=== PATIENT | male | born 1980 | race Caucasian/White ===

== ENCOUNTER 2016-12-01 11:56 | Emergency (ER) | payer MEDICARE, MEDICAID ==
--- NOTE | 2016-12-01 13:31 | RAD ---
HISTORY: Trauma, left foot injury COMPARISONS: None VIEWS: 3, Frontal, lateral, and oblique views of the left foot FINDINGS: BONE DENSITY: Normal. BONES: There is no displaced fracture. JOINTS: There is no arthropathy. ALIGNMENT: There is no dislocation. SOFT TISSUES: Unremarkable. OTHER FINDINGS: None. IMPRESSION: NO ACUTE OSSEOUS INJURY. IF SYMPTOMS PERSIST, RECOMMEND REPEAT IMAGING.
--- NOTE | 2016-12-01 13:36 | RAD ---
Indication: Left ankle injury. 3 views of left ankle demonstrates spiral fracture distal fibula with soft tissue swelling. Ankle mortise is intact. IMPRESSION: Spiral fracture distal fibula. Soft tissue swelling is noted.
[2016-12-01 14:27] VITALS: BP 145/99
[2016-12-01] MEDS ORDERED: Ibuprofen TAB* 600 MG PO ONE (14:46)
[2016-12-01] MEDS ORDERED: HYDROcodone/ACETAMIN 5-325 MG* 1 TAB PO ONE (14:46)
--- NOTE | 2016-12-01 17:46 | ED ---
Lower Extremity - HPI Summary HPI Summary: Pt here w/ Lt ankle injury last night. Has MS and was walking to the bathroom when he mis stepped and injured Lt ankle. Swelling, pain. Has been icing and elevating but still swollen and now bruising. Pt reports change in sensation is difficult to report d/t baseline neuropathies from MS. Denies taking anything for MS. Lives w/ family and has a health aid come in to care for him - health aid brought him in today. No other issues from injury to report (ie. head injury , other limbs, etc) NOTE: pt has a baseline Rt LE "Drop foot", making the LLE his "good leg". 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 Pain Intensity: 5 Pain Scale Used: 0-10 Numeric - Allergies/Home Medications Allergies/Adverse Reactions: Allergies Allergy/AdvReac Type Severity Reaction Status Date / Time Penicillins Allergy Rash Verified 12/18/15 12:52 PMH/Surg Hx/FS Hx/Imm Hx Previously Healthy: Yes Endocrine/Hematology History: Denies: Hx Anticoagulant Therapy, Hx Blood Disorders, Hx Diabetes Cardiovascular History: Denies: Hx Hypertension, Hx Pacemaker/ICD History: Denies: Hx Dialysis, Hx Renal Disease Sensory History: Denies: Hx Hearing Aid Neurological History: Reports: Other Neuro Impairments/Disorders - MS Psychiatric History: Reports: Hx [facility] [place] - [facility] Denies: Hx Panic Disorder, Hx of Violent Episodes Against Others - Surgical History Surgery Procedure, Year, and Place: 1982 - Immunization History Date of Tetanus Vaccine: unknown Date of Influenza Vaccine: none Infectious Disease History: No Infectious Disease History: Denies: Traveled Outside the [place] in Last 30 Days - Family History Known Family History: Positive: Unknown - Social History Occupation: Disabled Lives: With Family Alcohol Use: None Hx Substance Use: No Substance Use Type: Reports: None Substance Use Comment - Amount & Last Used: daily Smoking Status (MU): Current Every Day Smoker Type: Cigarettes Amount Used/How Often: 1/2 PPD Review of Systems Eyes: Negative Negative: Photophobia, Blurred Vision, Diplopia Negative: Chest Pain Negative: Shortness Of Breath Negative: Abdominal Pain, Vomiting, Nausea Positive: no symptoms reported Musculoskeletal: Other - see HPI Skin: Other - see HPI Neurological: Other - see HPI Psychological: Normal All Other Systems Reviewed And Are Negative: Yes Physical Exam Triage Information Reviewed: Yes Vital Signs On Initial Exam: Initial Vitals Temp Pulse Resp BP Pulse Ox 98.3 F 81 20 136/88 100 12/01/16 12:07 12/01/16 12:07 12/01/16 12:07 12/01/16 12:07 12/01/16 12:07 Vital Signs Reviewed: Yes Appearance: Positive: Well-Appearing, No Pain Distress, Well-Nourished Skin: Positive: Warm, Dry - pedal edema of Lt foot w/ ecchymosis around the lateral aspect and toes - no skin breakdown Eyes: Positive: Conjunctiva Clear ENT: Positive: Hearing grossly normal Cardiovascular: Positive: Pulses are Symmetrical in both Upper and Lower Extremities Musculoskeletal: Positive: Limited @ - strength nad ROM is limited in general - pt has tight tendons at baseline and he requires assistance to move him into positions outside of his "neutral" ROM, Pain @ - Lt lateral malleolus is TTP Neurological: Positive: Normal, Alert, Oriented to Person Place, Time. Negative : Sensory/Motor Intact - limited as above and d/t MS - feels gross touch Psychiatric: Positive: Other - somewhat blunted affect - Janelle Coma Scale Coma Scale Total: 15 Procedures - Splinting Location: LLE Hand-Made Type: fiberglass Splint: sugar-tong Pre-Proc Neuro Vasc Exam: normal Post-Proc Neuro Vasc Exam: normal Diagnostics - Vital Signs Vital Signs Temp Pulse Resp BP Pulse Ox 12/01/16 14:23 98.5 F 65 17 145/99 96 12/01/16 12:10 98.2 F 81 20 136/88 100 12/01/16 12:07 98.3 F 81 20 136/88 100 - Laboratory Lab Statement: Any lab studies that have been ordered have been reviewed, and results considered in the medical decision making process. Re-Evaluation - Re-Evaluation First Eval Change: Improved - s/p splint placement Lower Extremity Course/Dx - Course Course Of Treatment: Discussed importance of frequent foot checks as pt's sensation is dulled - reviwed danger s/sx of compartment syndrome and to seek medical attention immediately. Mom arrived before d/c and she is aware as well as health aid. Pt is NOT to weight bear and f/u w/ ortho this week. They do have a wheelchair at home and a urinal as well as bedpan were provided today. - Diagnoses Provider Diagnoses: Closed fracture of left distal fibula Discharge - Discharge Plan Condition: Stable Disposition: HOME Prescriptions: HYDROcodone/ACETAMIN 5-325 MG* [Unity 5-325 TAB*] 1 tab PO Q6H PRN #20 tab MDD 4 PRN Reason: Pain Ibuprofen TAB* [Motrin TAB* 600 MG] 600 mg PO Q6H PRN #20 tab PRN Reason: Pain Patient Education Materials: Ankle Fracture (ED), Splint Care (ED) Referrals: Vignesh Beard MD [Medical Doctor] - Additional Instructions: Rest, ice, elevate Keep splint clean, dry and intact Non-weight bearing - use wheelchair for transportation Follow-up with document improvement specialist - call today to schedule an appointment. *If you develop numbness, discoloration of foot/toes, you may loosen CEDRICK wrap and elevate for 20 minutes. If symptoms persist, return to ED
== END 2016-12-01 15:04 | disposition home or self-care (01) ==
LOC: ED 11:56
DX: S82.832A Other fracture of upper and lower end of left fibula, initial encounter for closed fracture (principal); W10.9XXA Fall (on) (from) unspecified stairs and steps, initial encounter; Y93.9 Activity, unspecified; Y92.9 Unspecified place or not applicable; F17.210 Nicotine dependence, cigarettes, uncomplicated
CPT/HCPCS: 99283; A9270-GY

== ENCOUNTER 2016-12-20 14:00 | Emergency (ER) | payer MEDICARE, MEDICAID ==
[2016-12-20 15:52] VITALS: BP 106/78
--- NOTE | 2016-12-20 17:44 | RAD ---
INDICATION: Right-sided rib pain COMPARISON: Chest x-ray March 27, 2015 TECHNIQUE: PA and lateral dual-energy views were obtained. FINDINGS: Bones/Soft Tissues: There are no acute bony findings. Cardiomediastinal: The cardiomediastinal silhouette is normal. Lungs: There are no infiltrates. Pleura: There are no pleural effusions. Other: None IMPRESSION: NO ACTIVE DISEASE
--- NOTE | 2016-12-20 18:28 | UC ---
UC General HPI - HPI Summary HPI Summary: AT 3AM HAD RIGHT RIB/RIGHT UPPER ABDOMINAL PAIN, LASTED FOR TWO HOURS THEN RESOLVED. NO TRAUMA, NO FEVER. CURRENTLY NO SYMPTOMS. INTERACTING NORMALLY WITH SECURITY ALARM INSTALLER. - History of Current Complaint Chief Complaint: UCUpperExtremity Stated Complaint: RIB PAIN Time Seen by Provider: 12/20/16 16:26 Hx Obtained From: Patient Onset/Duration: Sudden Onset, Lasting Hours, Resolved Onset Severity: Severe Current Severity: None Pain Intensity: 0 Associated Signs & Symptoms: Positive: Abdominal Pain. Negative: Back Pain, Confusion, Cough, Chest Pain, Dizziness, Diarrhea, Dysuria, Fever, Nausea, SOB, Trauma, Vomiting, Weakness - Allergy/Home Medications Allergies/Adverse Reactions: Allergies Allergy/AdvReac Type Severity Reaction Status Date / Time Penicillins Allergy Rash Verified 12/18/15 12:52 Home Medications: Home Medications Ibuprofen TAB* [Motrin TAB* 600 MG] 200 mg PO Q6H PRN 12/20/16 [History Confirmed 12/20/16] PMH/Surg Hx/FS Hx/Imm Hx Previously Healthy: Yes Other History Of: Negative For: Anticoagulant Therapy - Surgical History Surgical History: Yes Surgery Procedure, Year, and Place: jaw 1982 approx - Family History Known Family History: Positive: Unknown - Social History Occupation: Disabled Lives: With Family Alcohol Use: None Substance Use Type: None Substance Use Comment - Amount & Last Used: daily Smoking Status (MU): Current Every Day Smoker Type: Cigarettes Amount Used/How Often: 1/2 PPD Household Exposure Type: Cigarettes, Cigars - Immunization History Most Recent Influenza Vaccination: Unable to recall Most Recent Tetanus Shot: UNKNOWN Most Recent Pneumonia Vaccination: NA Review of Systems Constitutional: Negative Skin: Negative Eyes: Negative ENT: Negative Respiratory: Negative Cardiovascular: Negative Gastrointestinal: Abdominal Pain - RUQ; CURRENTLY RESOLVED Genitourinary: Negative Motor: Negative Neurovascular: Negative Musculoskeletal: Negative Neurological: Negative Psychological: Negative All Other Systems Reviewed And Are Negative: Yes Physical Exam Triage Information Reviewed: Yes Appearance: Well-Appearing, No Pain Distress, Well-Nourished Vital Signs: Initial Vital Signs Temp 98.7 F 12/20/16 15:46 Pulse 69 12/20/16 15:46 Resp 18 12/20/16 15:46 BP 106/78 12/20/16 15:46 Pulse Ox 98 12/20/16 15:46 Vital Signs Reviewed: Yes Eye Exam: Normal ENT Exam: Normal Dental Exam: Normal Neck exam: Normal Neck: Positive: Supple, Nontender, No Lymphadenopathy Respiratory Exam: Normal Respiratory: Positive: Chest non-tender, Lungs clear, Normal breath sounds, No respiratory distress, No accessory muscle use Cardiovascular Exam: Normal Cardiovascular: Positive: RRR, No Murmur, Pulses Normal Abdominal Exam: Normal Abdomen Description: Positive: Nontender, No Organomegaly, Soft, Other: - NONTENDER ABDOMEN Bowel Sounds: Positive: Present Musculoskeletal Exam: Normal Neurological Exam: Normal Psychological Exam: Normal Skin Exam: Normal Course/Dx - Course Course Of Treatment: CURRENTLY ASYMPTOMATIC; PATIENT AND SECURITY ALARM INSTALLER ADVISED TO SEEK IMMEDIATE CARE AT EMERGENCY DEPARTMENT IF SYMPTOMS RETURN OR IF NEW SYMPTOMS DEVELOP - Differential Dx - Multi-Symptom Differential Diagnoses: Metabolic Abnormality, Urinary Tract Infection Provider Diagnoses: ABDOMINAL PAIN RESOLVED; NORMAL EXAM WITHIN LIMITS OF PAST MEDICAL HISTORY Discharge - Discharge Plan Condition: Stable Disposition: HOME Patient Education Materials: Abdominal Pain (ED), Normal Exam (ED) Referrals: Tien Samuels MD [Primary Care Provider] - Additional Instructions: CURRENTLY SYMPTOMS HAVE RESOLVED. IF SYMPTOMS RETURN OR IF NEW SYMPTOMS DEVELOP PLEASE SEEK EVALUATION AT EMERGENCY DEPARTMENT.
== END 2016-12-20 18:13 | disposition home or self-care (01) ==
LOC: UCEAST 15:45
DX: R10.11 Right upper quadrant pain (principal); F17.210 Nicotine dependence, cigarettes, uncomplicated
CPT/HCPCS: 71020; 81003; 99212; G0463

== ENCOUNTER → 2016-12-21 12:25 | Emergency (ER) | payer MEDICARE, MEDICAID ==
[~2016-12-21 12:25] MED LIST: Iohexol 350* (CONTRAST) 500 ML MDV IV ONE
[2016-12-21 15:20] LABS: Hematocrit 41 % (42-52); Mean Corpuscular HGB Conc 34 g/dl (31-36); Mean Corpuscular Hemoglobin 29 pg (27-31); Mean Corpuscular Volume 85 fL (80-94); Mean Platelet Volume 10 um3 (7.4-10.4); Red Blood Count 4.84 10^6/ul (4.0-5.4); Red Cell Distribution Width 13 % (10.5-15); White Blood Count 10.5 10^3/ul (3.5-10.8)
[2016-12-21 15:35] LABS: Albumin 4.1 g/dL (3.2-5.2); BUN/Creatinine Ratio 14.9 (8-20); C Reactive Protein 29.15 mg/L (< 5.00); Calcium 9.6 mg/dL (8.6-10.3); EGFR African American 153.1 (>60); Globulin 3.5 g/dL (2-4); Total Bilirubin 0.6 mg/dL (0.2-1.0); Total Protein 7.6 g/dL (6.4-8.9)
[2016-12-21 15:38] LABS: Potassium 4.2 mmol/L (3.5-5.0)
--- NOTE | 2016-12-21 16:42 | RAD ---
INDICATION: Chest pain. Short of breath. Abdominal pain COMPARISON: Chest x-ray December 20, 2016; left ankle December 20, 2016 TECHNIQUE: Axial source images were obtained from the thoracic inlet to the symphysis pubis following administration of oral and intravenous contrast. 98 mL Omnipaque [address] angiographic technique of the chest coronal and sagittal reconstructed images were acquired. CHEST FINDINGS: Neck/thyroid: The visualized neck to include the thyroid appear normal. Chest wall: There are no acute abnormalities of the bony thorax or chest wall. There is no supraclavicular, infraclavicular, or axillary lymphadenopathy. Lungs : There are no pulmonary parenchymal masses or infiltrates. The pulmonary interstitium appears normal. There are no endobronchial lesions. Cardiomediastinal structures: The heart is normal in size. There is no pericardial effusion. There is no evidence of aortic aneurysm or dissection. The pulmonary vessels appear normal. There is no mediastinal or hilar adenopathy. The esophagus appears normal. Pleura : There are no pleural-based masses or effusions. ABDOMINAL/PELVIC FINDINGS: Liver: The liver is normal in size. There are no masses. There is no ductal dilatation. Gallbladder: There are no calcified gallstones. There is no evidence of wall thickening or pericholecystic fluid. Spleen: The spleen is normal in size. There are no masses. Pancreas: There is no evidence of pancreatic mass or ductal dilatation. Adrenal glands: There is no evidence of adrenal mass. Kidneys: The kidneys are normal in size and position. There are prompt nephrograms and there is prompt excretion bilaterally. There are no renal parenchymal masses. There is no evidence of nephrolithiasis. Adenopathy: There is no evidence of adenopathy by size criteria. Fluid collections: There are no free or localized fluid collections. Vessels:The aorta and IVC appear normal GI tract: There are no acute CT bowel findings. There is no obstruction. The stomach and small bowel appear normal. The lower GI tract is normal. The cecum, ileocecal valve, and terminal ileum appear normal. The appendix is visualized and appear normal. Pelvic organs: The prostate and seminal vesicles appear normal Bladder: There are no bladder masses. Abdominal and pelvic soft tissues: The extraperitoneal abdominal and pelvic soft tissues appear normal.. Osseous structures: There are no acute osseous findings. IMPRESSION: 1. No CT evidence of acute pulmonary embolic disease. 2. Moderate-sized infiltrate or atelectasis in the right lung base with volume loss. Suggest a follow-up chest x-ray. 3. No acute CT abnormalities of the abdomen or pelvis.
[2016-12-21 18:05] VITALS: BP 141/90
--- NOTE | 2016-12-21 22:38 | ED ---
Rey Adame Alfonso, scribed for Ezekiel Zapien MD on 12/21/16 at 1318 . Shortness of Breath - HPI Summary HPI Summary: This patient is a 36 year old male presenting to [facility] c/o SOB since yesterday. He reports right sided pleuritic CP at rest. He reports "I can't take a full breath" secondary to pain. Symptoms aggravated by deep breaths and alleviated by nothing. The patient states he has abdominal pain. He ate today and is not hungry. PMHx of fractured left LE (1 week ago). - History of Current Complaint Chief Complaint: EDShortnessOfBreath Time Seen by Provider: 12/21/16 13:15 Hx Obtained From: Patient Onset/Duration: Sudden Onset, Lasting Hours - Since yesterday, Still Present Timing: Constant Current Severity: Moderate Dyspnea At: Rest Aggrevating Factors: Deep Breaths Alleviating Factors: Nothing Associated Signs & Symptoms: Chest Pain Unrelated to Cough - Pleuritic CP - Allergy/Home Medications Allergies/Adverse Reactions: Allergies Allergy/AdvReac Type Severity Reaction Status Date / Time Penicillins Allergy Rash Verified 12/21/16 12:38 PMH/Surg Hx/FS Hx/Imm Hx Endocrine/Hematology History: Denies: Hx Anticoagulant Therapy, Hx Blood Disorders, Hx Diabetes Cardiovascular History: Denies: Hx Hypertension, Hx Pacemaker/ICD History: Denies: Hx Dialysis, Hx Renal Disease Sensory History: Denies: Hx Hearing Aid Neurological History: Reports: Other Neuro Impairments/Disorders - MS Psychiatric History: Reports: Hx [facility] [place] - [facility] Denies: Hx Panic Disorder, Hx of Violent Episodes Against Others - Surgical History Surgery Procedure, Year, and Place: 1982 - Immunization History Date of Tetanus Vaccine: unknown Date of Influenza Vaccine: none Infectious Disease History: No Infectious Disease History: Denies: Traveled Outside the [place] in Last 30 Days - Family History Known Family History: Positive: Cardiac Disease, Hypertension, Diabetes, Other - Positive cancers - Social History Alcohol Use: None Hx Substance Use: No Substance Use Type: Reports: None Substance Use Comment - Amount & Last Used: daily Hx Tobacco Use: Yes Smoking Status (MU): Light Every Day Tobacco Smoker Type: Cigarettes Amount Used/How Often: 1/2 PPD Review of Systems Positive: Chest Pain - Right sided pleuritic CP Positive: Shortness Of Breath Positive: Abdominal Pain Positive: Other - fractured left LE last week All Other Systems Reviewed And Are Negative: Yes Physical Exam Triage Information Reviewed: Yes Vital Signs On Initial Exam: Initial Vitals BP Pulse Ox 121/76 99 12/21/16 12:35 12/21/16 12:35 Vital Signs Reviewed: Yes Appearance: Positive: Well-Appearing, No Pain Distress Skin: Positive: Warm, Skin Color Reflects Adequate Perfusion, Dry Head/Face: Positive: Normal Head/Face Inspection Eyes: Positive: Normal ENT: Positive: Normal ENT inspection Neck: Positive: Supple, Nontender Respiratory/Lung Sounds: Positive: Clear to Auscultation, Decreased Breath Sounds - Diminished on right side Cardiovascular: Positive: RRR Abdomen Description: Negative: Nontender - Tender RLQ and RUQ Bowel Sounds: Positive: Present Musculoskeletal: Positive: Normal Neurological: Positive: Normal, Sensory/Motor Intact, Alert, Oriented to Person Place, Time, CN Intact II-III Psychiatric: Positive: Affect/Mood Appropriate - Janelle Coma Scale Coma Scale Total: 15 Diagnostics - Vital Signs Vital Signs Temp Pulse Resp BP Pulse Ox 12/21/16 13:00 88 21 122/82 97 12/21/16 12:53 91 24 97 12/21/16 12:52 128/81 12/21/16 12:38 99.3 F 92 18 121/76 98 12/21/16 12:35 121/76 99 - Laboratory Lab Results: Lab Results 12/21/16 12/21/16 12/21/16 Range/Units 15:11 15:11 15:11 WBC 10.5 (3.5-10.8) 10^3/ul RBC 4.84 (4.0-5.4) 10^6/ul Hgb 14.0 (14.0-18.0) g/dl Hct 41 L (42-52) % MCV 85 (80-94) fL MCH 29 (27-31) pg MCHC 34 (31-36) g/dl RDW 13 (10.5-15) % Plt Count 210 (150-450) 10^3/ul MPV 10 (7.4-10.4) um3 Neut % (Auto) 70.0 (38-83) % Lymph % (Auto) 21.2 L (25-47) % [place] % (Auto) 6.0 (1-9) % Eos % (Auto) 1.9 (0-6) % Baso % (Auto) 0.9 (0-2) % Absolute Neuts (auto) 7.4 (1.5-7.7) 10^3/ul Absolute Lymphs (auto) 2.2 (1.0-4.8) 10^3/ul Absolute Monos (auto) 0.6 (0-0.8) 10^3/ul Absolute Eos (auto) 0.2 (0-0.6) 10^3/ul Absolute Basos (auto) 0.1 (0-0.2) 10^3/ul Absolute Nucleated RBC 0.01 10^3/ul Nucleated RBC % 0.1 INR (Anticoag Therapy) 1.00 (0.89-1.11) Sodium 133 (133-145) mmol/L Potassium 4.2 (3.5-5.0) mmol/L Chloride 100 L (101-111) mmol/L Carbon Dioxide 26 (22-32) mmol/L Anion Gap 7 (2-11) mmol/L BUN 11 (6-24) mg/dL Creatinine 0.74 (0.67-1.17) mg/dL Est GFR ( Amer) 153.1 (>60) Est GFR (Non-Af Amer) 119.0 (>60) BUN/Creatinine Ratio 14.9 (8-20) Glucose 102 H (70-100) mg/dL Lactic Acid (0.5-2.0) mmol/L Calcium 9.6 (8.6-10.3) mg/dL Total Bilirubin 0.60 (0.2-1.0) mg/dL AST 19 (13-39) U/L ALT 21 (7-52) U/L Alkaline Phosphatase 77 (34-104) U/L C-Reactive Protein 29.15 H (< 5.00) mg/L Total Protein 7.6 (6.4-8.9) g/dL Albumin 4.1 (3.2-5.2) g/dL Globulin 3.5 (2-4) g/dL Albumin/Globulin Ratio 1.2 (1-3) Lipase 11 (11.0-82.0) U/L // Range/Units 15:11 WBC (3.5-10.8) 10^3/ul RBC (4.0-5.4) 10^6/ul Hgb (14.0-18.0) g/dl Hct (42-52) % MCV (80-94) fL MCH (27-31) pg MCHC (31-36) g/dl RDW (10.5-15) % Plt Count (150-450) 10^3/ul MPV (7.4-10.4) um3 Neut % (Auto) (38-83) % Lymph % (Auto) (25-47) % [place] % (Auto) (1-9) % Eos % (Auto) (0-6) % Baso % (Auto) (0-2) % Absolute Neuts (auto) (1.5-7.7) 10^3/ul Absolute Lymphs (auto) (1.0-4.8) 10^3/ul Absolute Monos (auto) (0-0.8) 10^3/ul Absolute Eos (auto) (0-0.6) 10^3/ul Absolute Basos (auto) (0-0.2) 10^3/ul Absolute Nucleated RBC 10^3/ul Nucleated RBC % INR (Anticoag Therapy) (0.89-1.11) Sodium (133-145) mmol/L Potassium (3.5-5.0) mmol/L Chloride (101-111) mmol/L Carbon Dioxide (22-32) mmol/L Anion Gap (2-11) mmol/L BUN (6-24) mg/dL Creatinine (0.67-1.17) mg/dL Est GFR ( Amer) (>60) Est GFR (Non-Af Amer) (>60) BUN/Creatinine Ratio (8-20) Glucose (70-100) mg/dL Lactic Acid 0.9 (0.5-2.0) mmol/L Calcium (8.6-10.3) mg/dL Total Bilirubin (0.2-1.0) mg/dL AST (13-39) U/L ALT (7-52) U/L Alkaline Phosphatase (34-104) U/L C-Reactive Protein (< 5.00) mg/L Total Protein (6.4-8.9) g/dL Albumin (3.2-5.2) g/dL Globulin (2-4) g/dL Albumin/Globulin Ratio (1-3) Lipase (11.0-82.0) U/L Result Diagrams: 12/21/16 15:11 12/21/16 15:11 Lab Statement: Any lab studies that have been ordered have been reviewed, and results considered in the medical decision making process. - CT CTA Chest/Abd/Pelvis CT Interpretation Completed By: Radiologist - 1. No CT evidence of acute pulmonary embolic disease. 2. Moderate-sized infiltrate or atelectasis in the right lung base with volume loss. Suggest a follow-up chest x-ray. 3. No acute CT abnormalities of the abdomen or pelvis. Course/Dx - Course Course Of Treatment: Mr. Bradley presented with some SOB and pleuritic right- sided CP that started today. His exam was remarkable only for RLQ tenderness. A CTA showed nno PE and at CT was also negative. He did have significant atelectasis and has been lying around a lot because of his MS and a recent leg fracture. We gave him an incentive spirometer and recommended close F/U. - Diagnoses Provider Diagnoses: Chest pain Discharge - Discharge Plan Condition: Stable Disposition: HOME Patient Education Materials: Chest Pain (ED) Referrals: Tien Samuels MD [Primary Care Provider] - 3 Days Additional Instructions: Follow up with your primary care provider. The documentation as recorded by the Rey vang Alfonso accurately reflects the service I personally performed and the decisions made by me, Ezekiel Zapien MD.
== END | disposition home or self-care (01) ==
LOC: ED 12:25
DX: R07.9 Chest pain, unspecified (principal); R06.02 Shortness of breath; R10.9 Unspecified abdominal pain; F17.210 Nicotine dependence, cigarettes, uncomplicated
CPT/HCPCS: 36415; 71275; 74177; 80053; 83605; 83690; 85025; 85610; 86140; 93005; 99283; Q9967

== ENCOUNTER 2016-12-22 15:06 | Emergency (ER) | payer MEDICARE, MEDICAID ==
[2016-12-22 15:44] LABS: Hematocrit 40 % (42-52); Hemoglobin 13.5 g/dl (14.0-18.0); Mean Corpuscular HGB Conc 34 g/dl (31-36); Mean Corpuscular Hemoglobin 29 pg (27-31); Mean Corpuscular Volume 86 fL (80-94); Mean Platelet Volume 10 um3 (7.4-10.4); Red Blood Count 4.67 10^6/ul (4.0-5.4); Red Cell Distribution Width 13 % (10.5-15); White Blood Count 7.7 10^3/ul (3.5-10.8)
[2016-12-22 15:59] LABS: Albumin 3.8 g/dL (3.2-5.2); BUN/Creatinine Ratio 21.3 (8-20); Calcium 9.4 mg/dL (8.6-10.3); EGFR African American 150.7 (>60); EGFR Non-African American 117.2 (>60); Globulin 3.5 g/dL (2-4); Total Bilirubin 0.4 mg/dL (0.2-1.0); Total Protein 7.3 g/dL (6.4-8.9)
--- NOTE | 2016-12-22 16:08 | RAD ---
INDICATION: Shortness of breath, pneumonia. COMPARISON: Comparison is made with a prior chest x-ray study from December 20, [address] of the chest from December 21, 2016. TECHNIQUE: AP and lateral views of the chest were obtained. FINDINGS: The heart is within normal limits in size. Mediastinal and hilar contours appear within normal limits. There is a small infiltrate in the right lower lobe which appears new from the prior chest x-ray study although correlates with the CT exam. The left lung appears clear. No pleural effusion is seen. IMPRESSION: SMALL RIGHT LOWER LOBE INFILTRATE.
[2016-12-22] MEDS: NS 0.9% 1000 ML* 2,000 ML IV ONE ×2 (16:12→18:13)
[2016-12-22 16:15] LABS: C Reactive Protein 36.47 mg/L (< 5.00)
--- NOTE | 2016-12-22 18:52 | ED ---
Shortness of Breath - HPI Summary HPI Summary: Patient was seen in this ED yesterday and diagnosed with atelectasis. He was originally sent in with concerns for PE after a period of immobilization due to a left fibula fracture. This was ruled out with a CTA yesterday. He returns today because he continues to have pain with deep breaths, as he did when he originally presented, and his aid from [employer] read information about atelectasis and thought he had a collapsed lung. The patient was told to use ibuprofen for pain, which he took 600mg of once today. He denies fever, chills, N/V/D, CP, SOB, palpitations or CORTES. He does has pain with deep breaths, without cough or congestion. - History of Current Complaint Chief Complaint: EDShortnessOfBreath Time Seen by Provider: 12/22/16 18:03 Hx Obtained From: Patient, Family/Library Acquisitions Technician Onset/Duration: Gradual Onset Timing: Constant Current Severity: Mild Aggrevating Factors: Deep Breaths Alleviating Factors: Nothing Associated Signs & Symptoms: Negative - Allergy/Home Medications Allergies/Adverse Reactions: Allergies Allergy/AdvReac Type Severity Reaction Status Date / Time Penicillins Allergy Rash Verified 12/21/16 12:38 PMH/Surg Hx/FS Hx/Imm Hx Endocrine/Hematology History: Denies: Hx Anticoagulant Therapy, Hx Blood Disorders, Hx Diabetes Cardiovascular History: Denies: Hx Hypertension, Hx Pacemaker/ICD History: Denies: Hx Dialysis, Hx Renal Disease Sensory History: Denies: Hx Hearing Aid Neurological History: Reports: Other Neuro Impairments/Disorders - MS Psychiatric History: Reports: Hx Community Mental Health [place] - [facility] Denies: Hx Panic Disorder, Hx of Violent Episodes Against Others - Surgical History Surgery Procedure, Year, and Place: 1982 - Immunization History Date of Tetanus Vaccine: unknown Date of Influenza Vaccine: none Infectious Disease History: No Infectious Disease History: Denies: Traveled Outside the [place] in Last 30 Days - Family History Known Family History: Positive: Unknown, Cardiac Disease, Hypertension, Diabetes , Other - Positive cancers - Social History Occupation: Disabled Lives: Assisted Living Alcohol Use: None Hx Substance Use: No Substance Use Type: Reports: None Substance Use Comment - Amount & Last Used: daily Hx Tobacco Use: Yes Smoking Status (MU): Light Every Day Tobacco Smoker Type: Cigarettes Amount Used/How Often: 1/2 PPD Cessation Counseling: Patient Advised to Stop Review of Systems Negative: Fever, Chills Negative: Sore Throat, Ear Ache, Nasal Discharge Negative: Chest Pain Negative: Shortness Of Breath - pain with deep breaths, Cough Negative: Myalgia All Other Systems Reviewed And Are Negative: Yes Physical Exam - Summary Physical Exam Summary: Patient is drinking a smoothie resting comfortably on the exam stretcher in no acute distress. Triage Information Reviewed: Yes Vital Signs On Initial Exam: Initial Vitals Resp BP 20 135/86 12/22/16 15:30 12/22/16 15:30 Vital Signs Reviewed: Yes Appearance: Positive: Well-Appearing, No Pain Distress, Well-Nourished Skin: Positive: Warm, Skin Color Reflects Adequate Perfusion, Dry, Soft Head/Face: Positive: Normal Head/Face Inspection Eyes: Positive: EOMI, MOLLY, Conjunctiva Clear ENT: Positive: Hearing grossly normal Neck: Positive: Supple, Nontender Respiratory/Lung Sounds: Positive: Clear to Auscultation, Breath Sounds Present Cardiovascular: Positive: RRR Musculoskeletal: Negative: Edema Left, Edema Right Neurological: Positive: Sensory/Motor Intact, NV Bundle Intact Distally Psychiatric: Positive: Affect/Mood Appropriate AVPU Assessment: Alert - Weinert Coma Scale Coma Scale Total: 15 Diagnostics - Vital Signs Vital Signs Temp Pulse Resp BP Pulse Ox 12/22/16 17:30 66 17 125/91 95 12/22/16 17:00 66 17 131/83 95 12/22/16 16:30 71 17 134/91 95 12/22/16 16:00 74 19 130/82 96 12/22/16 15:55 99.6 F 75 22 135/86 95 12/22/16 15:30 20 135/86 - Laboratory Lab Results: Lab Results 12/22/16 12/22/16 12/22/16 Range/Units 15:35 15:35 15:35 WBC 7.7 (3.5-10.8) 10^3/ul RBC 4.67 (4.0-5.4) 10^6/ul Hgb 13.5 L (14.0-18.0) g/dl Hct 40 L (42-52) % MCV 86 (80-94) fL MCH 29 (27-31) pg MCHC 34 (31-36) g/dl RDW 13 (10.5-15) % Plt Count 223 (150-450) 10^3/ul MPV 10 (7.4-10.4) um3 Neut % (Auto) 69.2 (38-83) % Lymph % (Auto) 19.3 L (25-47) % [place] % (Auto) 7.2 (1-9) % Eos % (Auto) 3.0 (0-6) % Baso % (Auto) 1.3 (0-2) % Absolute Neuts (auto) 5.3 (1.5-7.7) 10^3/ul Absolute Lymphs (auto) 1.5 (1.0-4.8) 10^3/ul Absolute Monos (auto) 0.5 (0-0.8) 10^3/ul Absolute Eos (auto) 0.2 (0-0.6) 10^3/ul Absolute Basos (auto) 0.1 (0-0.2) 10^3/ul Absolute Nucleated RBC 0.01 10^3/ul Nucleated RBC % 0.1 Sodium 136 (133-145) mmol/L Potassium 4.0 (3.5-5.0) mmol/L Chloride 104 (101-111) mmol/L Carbon Dioxide 23 (22-32) mmol/L Anion Gap 9 (2-11) mmol/L BUN 16 (6-24) mg/dL Creatinine 0.75 (0.67-1.17) mg/dL Est GFR ( Amer) 150.7 (>60) Est GFR (Non-Af Amer) 117.2 (>60) BUN/Creatinine Ratio 21.3 H (8-20) Glucose 101 H (70-100) mg/dL Lactic Acid 0.6 (0.5-2.0) mmol/L Calcium 9.4 (8.6-10.3) mg/dL Total Bilirubin 0.40 (0.2-1.0) mg/dL AST 18 (13-39) U/L ALT 17 (7-52) U/L Alkaline Phosphatase 69 (34-104) U/L Troponin I 0.00 (<0.04) ng/mL C-Reactive Protein 36.47 H (< 5.00) mg/L B-Natriuretic Peptide ( - 100) pg/mL Total Protein 7.3 (6.4-8.9) g/dL Albumin 3.8 (3.2-5.2) g/dL Globulin 3.5 (2-4) g/dL Albumin/Globulin Ratio 1.1 (1-3) 12/22/16 Range/Units 15:35 WBC (3.5-10.8) 10^3/ul RBC (4.0-5.4) 10^6/ul Hgb (14.0-18.0) g/dl Hct (42-52) % MCV (80-94) fL MCH (27-31) pg MCHC (31-36) g/dl RDW (10.5-15) % Plt Count (150-450) 10^3/ul MPV (7.4-10.4) um3 Neut % (Auto) (38-83) % Lymph % (Auto) (25-47) % [place] % (Auto) (1-9) % Eos % (Auto) (0-6) % Baso % (Auto) (0-2) % Absolute Neuts (auto) (1.5-7.7) 10^3/ul Absolute Lymphs (auto) (1.0-4.8) 10^3/ul Absolute Monos (auto) (0-0.8) 10^3/ul Absolute Eos (auto) (0-0.6) 10^3/ul Absolute Basos (auto) (0-0.2) 10^3/ul Absolute Nucleated RBC 10^3/ul Nucleated RBC % Sodium (133-145) mmol/L Potassium (3.5-5.0) mmol/L Chloride (101-111) mmol/L Carbon Dioxide (22-32) mmol/L Anion Gap (2-11) mmol/L BUN (6-24) mg/dL Creatinine (0.67-1.17) mg/dL Est GFR ( Amer) (>60) Est GFR (Non-Af Amer) (>60) BUN/Creatinine Ratio (8-20) Glucose (70-100) mg/dL Lactic Acid (0.5-2.0) mmol/L Calcium (8.6-10.3) mg/dL Total Bilirubin (0.2-1.0) mg/dL AST (13-39) U/L ALT (7-52) U/L Alkaline Phosphatase (34-104) U/L Troponin I (<0.04) ng/mL C-Reactive Protein (< 5.00) mg/L B-Natriuretic Peptide 23 ( - 100) pg/mL Total Protein (6.4-8.9) g/dL Albumin (3.2-5.2) g/dL Globulin (2-4) g/dL Albumin/Globulin Ratio (1-3) Result Diagrams: 12/22/16 15:35 12/22/16 15:35 Lab Statement: Any lab studies that have been ordered have been reviewed, and results considered in the medical decision making process. - Radiology No standard instances Xray Interpretation: No Acute Changes - consistent findings with CTA from yesterday Radiology Interpretation Completed By: Radiologist Course/Dx - Diagnoses Differential Diagnosis/HQI/PQRI: Positive: Airway Foreign Body, Bronchitis, Chest Wall Pain, Pneumonia, Pneumothorax, Pulmonary Embolism, Pulmonary Edema Provider Diagnoses: Pain aggravated by coughing and deep breathing Discharge - Discharge Plan Condition: Stable Disposition: HOME Prescriptions: Ibuprofen TAB* [Motrin TAB* 600 MG] 600 mg PO Q6H PRN #30 tab PRN Reason: Pain Patient Education Materials: Atelectasis (ED) Referrals: Tien Samuels MD [Primary Care Provider] - Additional Instructions: The patient's labs and x-ray are consistent with findings yesterday of atelectasis. His lungs are clear, and he does not have pneumonia. He does not have a blood clot or a collapsed lung. He needs to use the inspirometer he was given yesterday and take deep breaths several times hourly, even though he has pain. Use ibuprofen 600mg three times daily with meals for the next 3-5 days to decrease inflammation and pain. Follow-up with your primary care provider in 3- 5 days to insure you are improving. Return to the emergency department if symptoms worsen.
[2016-12-22 20:23] VITALS: BP 129/81
== END 2016-12-22 20:23 | disposition home or self-care (01) ==
LOC: ED 15:06
DX: R05 Cough (principal); R06.02 Shortness of breath; R52 Pain, unspecified; F17.210 Nicotine dependence, cigarettes, uncomplicated
CPT/HCPCS: 36415; 71020; 80053; 83605; 83880; 84484; 85025; 86140; 87040; 93005; 99283

== ENCOUNTER 2018-03-02 11:38 | Observation (INO) | payer MEDICARE, MEDICAID ==
--- NOTE | 2018-03-02 12:16 | ED ---
Neurological HPI - HPI Summary HPI Summary: Patient is a 38 y/o M w/ c/o possible "flare up" of "progressive MS". Progressive MS was diagnosed 20 years ago. Patient's family member states that patient has been experiencing increased falls over the past two weeks. She notes difficulty standing as well as trembling in patient. On triage, pain is denied and nothing is noted to aggravate/alleviate Sx. Dr. Franco had been called by patient and patient's family SLOT SHIFT SUPERVISOR as Dr. Franco has cared for the patient previously. He told them to come to ED and he would be in to see the patient. - History of Current Complaint Chief Complaint: EDWeakness Stated Complaint: MULTIPLE FALLS LATELY/DIAGNOSED MS/DR FRANCO SENT Time Seen by Provider: 03/02/18 12:06 Hx Obtained From: Family/Mission Manager - family member provided HPI Onset/Duration: Started weeks ago - onset two weeks ago, Still Present Current Severity: None Neurological Deficit Location: Generalized - patient has "progressive MS" Pain Intensity: 0 Pain Scale Used: 0-10 Numeric - 0/10, pain denied Aggravating: Nothing Alleviating: Nothing - Allergy/Home Medications Allergies/Adverse Reactions: Allergies Allergy/AdvReac Type Severity Reaction Status Date / Time Penicillins Allergy Rash And Verified 03/02/18 11:49 Itching PMH/Surg Hx/FS Hx/Imm Hx Endocrine/Hematology History: Denies: Hx Anticoagulant Therapy, Hx Blood Disorders, Hx Diabetes Cardiovascular History: Denies: Hx Hypertension, Hx Pacemaker/ICD History: Denies: Hx Dialysis, Hx Renal Disease Sensory History: Denies: Hx Hearing Aid Neurological History: Reports: Other Neuro Impairments/Disorders - MS Psychiatric History: Reports: Hx Community [facility] Health [place] - [facility] [place] Denies: Hx Panic Disorder, Hx of Violent Episodes Against Others - Surgical History Surgery Procedure, Year, and Place: 1982 - Immunization History Date of Tetanus Vaccine: unknown Date of Influenza Vaccine: none Infectious Disease History: No Infectious Disease History: Denies: Traveled Outside the [place] in Last 30 Days - Family History Known Family History: Positive: Cardiac Disease, Hypertension, Diabetes, Other - Positive cancers - Social History Alcohol Use: None Hx Substance Use: No Substance Use Type: Reports: None Substance Use Comment - Amount & Last Used: daily Hx Tobacco Use: Yes Smoking Status (MU): Light Every Day Tobacco Smoker Type: Cigarettes Amount Used/How Often: 1/2 PPD Review of Systems Negative: Fever - on vitals, temp is 96.9 F Neurological: Other - patient has "progressive MS", increased falls and trembling All Other Systems Reviewed And Are Negative: Yes Physical Exam - Summary Physical Exam Summary: Appearance: The patient is well-nourished in no acute distress and in no acute pain. Skin: The skin is warm and dry and skin color reflects adequate perfusion. HEENT: The head is normocephalic and atraumatic. The pupils are equal and reactive. The conjunctivae are clear and without drainage. Nares are patent and without drainage. Mouth reveals moist mucous membranes and the throat is without erythema and exudate. The external ears are intact. The ear canals are patent and without drainage. The tympanic membranes are intact. Neck: The neck is supple with full range of motion and non-tender. There are no carotid bruits. There is no neck vein distension. Respiratory: Chest is non-tender. Lungs are clear to auscultation and breath sounds are symmetrical and equal. Cardiovascular: Heart is regular rate and rhythm. There is no murmur or rub auscultated. There is no peripheral edema and pulses are symmetrical and equal. Abdomen: The abdomen is soft and non-tender. There are normal bowel sounds heard in all four quadrants and there is no organomegaly palpated. Musculoskeletal: There is no back tenderness noted. Extremities are non-tender with full range of motion. There is good capillary refill. There is no peripheral edema or calf tenderness elicited. Neurological: Patient is alert and oriented to person, place and time. The patient has symmetrical motor strength in all four extremities. Cranial nerves are grossly intact. Deep tendon reflexes are symmetrical and equal in all four extremities. Patient is hyper-reflexive. Sustained clonus in BLE. Psychiatric: The patient has an appropriate affect and does not exhibit any anxiety or depression. Triage Information Reviewed: Yes Vital Signs On Initial Exam: Initial Vitals Temp Pulse Resp BP Pulse Ox 96.9 F 63 17 130/88 96 03/02/18 11:45 03/02/18 11:45 03/02/18 11:45 03/02/18 11:45 03/02/18 11:45 Vital Signs Reviewed: Yes Diagnostics - Vital Signs Vital Signs Temp Pulse Resp BP Pulse Ox 03/02/18 11:45 96.9 F 63 17 130/88 96 - Laboratory Result Diagrams: 03/02/18 14:21 Lab Statement: Any lab studies that have been ordered have been reviewed, and results considered in the medical decision making process. Course/Dx - Course Course Of Treatment: Mr. Muhammad has been getting progressively weaker over the past couple of weeks. Labs were checked 2 days ago and he was recommended over the phone to presented to the emergency department today. He was hyperreflexic and weak but cooperative to the exam. Dr. Franco was contacted, came to the emergency department and evaluated Vignesh. Dr. Franco recommended admission and spoke with the hospitalist. - Diagnoses Provider Diagnoses: Exacerbation of multiple sclerosis - Physician Notifications Discussed Care Of Patient With: Delfino Franco Time Discussed With Above Provider: 12:14 Instructed by Provider To: Other - Dr. Franco was called on patient's case at 1214. He stated that he did not want any labs drawn on patient and he would come to ED to see him. 13:01 -- Dr. Franco and Dr. Zapien discussed plan of care for the patient. 14:05 -- Dr. Franco and Dr. Zaragoza discussed patient's case, Dr. Zaragoza will be admitting physician for patient. Discharge - Sign-Out/Discharge Documenting (check all that apply): Patient Departure - admit Signing out patient TO: Noreen Gu Receiving patient FROM: Ezekiel Zapien - Discharge Plan Condition: Stable Disposition: HOME - Billing Disposition and Condition Condition: STABLE Disposition: Home - Attestation Statements Document Initiated by Sabino: Yes Documenting Scribe: Fredo Mena Provider For Whom Sabino is Documenting (Include Credential): Ezekiel Zapien MD Scribe Attestation: Fredo Adame, scribed for Ezekiel Zapien MD on 03/02/18 at 1841. Scribe Documentation Reviewed: Yes Provider Attestation: The documentation as recorded by the Fredo vang accurately reflects the service I personally performed and the decisions made by me, Ezekiel Zapien MD
[2018-03-02] MEDS ORDERED: methylPREDNISolone SOD SUCC* 500 MG in NS 0.9% 100 ML* 100 ML IVPB SCH (13:30)
[2018-03-02 15:01] LABS: EGFR Non-African American 101.7 (>60)
[2018-03-02] MEDS ORDERED: Ibuprofen TAB* 600 MG PO PRN (15:23)
[2018-03-02] MEDS ORDERED: HYDROcodone/ACETAMIN 5-325 MG* 1 TAB PO PRN (15:23)
[2018-03-02] MEDS ORDERED: INTERFERON BETA SUBCUT SCH ×2 (17:00→21:00)
[2018-03-02] MEDS ORDERED: Gadoteridol* (CONTRAST) 279.3 MG/ML 10 ML IV ONE (17:47)
[2018-03-02] MEDS: tiZANidine TAB* 2 MG PO SCH ×2 (17:55→22:03)
[2018-03-02] MEDS: Baclofen TAB* 10 MG PO SCH ×2 (17:55→22:04)
--- NOTE | 2018-03-02 19:39 | RAD ---
EXAM: MR Cervical Spine Without And With Intravenous Contrast CLINICAL HISTORY: 38 years old, male; Condition or disease; Other: Multiple sclerosis; Patient HX: Diagnosised with ms, has been experiencing an increase in falls recently; Additional info: Ms relapse TECHNIQUE: Magnetic resonance images of the cervical spine without and with intravenous contrast in multiple planes. CONTRAST: 19 mL of prohance administered intravenously. COMPARISON: No relevant prior studies available. FINDINGS: Vertebrae: Mild cervical spondylosis without focal disc herniation or significant stenosis. Spinal cord: Multiple white matter lesions in the cervical spinal cord and upper thoracic cord consistent with the given history of multiple sclerosis. These are evident throughout the visualized portion of the cord, most prominent from C2-C4 levels. None of these lesions enhance or have associated mass. Soft tissues: Unremarkable. Vasculature: Unremarkable. Normal vertebral artery flow voids are visualized. DISCS/SPINAL CANAL/NEURAL FORAMINA: C2-C3: Unremarkable. No significant disc disease. No stenosis. C3-C4: Unremarkable. No significant disc disease. No stenosis. C4-C5: Unremarkable. No significant disc disease. No stenosis. C5-C6: Unremarkable. No significant disc disease. No stenosis. C6-C7: Unremarkable. No significant disc disease. No stenosis. C7-T1: Unremarkable. No significant disc disease. No stenosis. IMPRESSION: 1. Multiple white matter lesions in the cervical spinal cord and upper thoracic cord consistent with the given history of multiple sclerosis. These are evident throughout the visualized portion of the cord, most prominent from C2-C4 levels. None of these lesions enhance or have associated mass. 2. Mild cervical spondylosis without focal disc herniation or significant stenosis.
--- NOTE | 2018-03-02 19:50 | RAD ---
EXAM: MR Head Without And With Intravenous Contrast CLINICAL HISTORY: 38 years old, male; Signs and symptoms; Walking, difficulty; Patient HX: Diagnosised with ms, has been experiencing an increase in falls recently; Additional info: Ms relapse TECHNIQUE: Magnetic resonance images of the head/brain without and with intravenous contrast in multiple planes. CONTRAST: 19 mL of PROHANCE administered intravenously. COMPARISON: BRAIN [facility] MRI BRAIN W/WO 12/18/2015 12:43 PM FINDINGS: Brain: Extensive white matter lesions in the deep and subcortical white matter are similar in size and distribution a previous study with no new or enhancing lesions seen. Degree of supratentorial substance loss again is seen to be significantly greater than expected for stated age but is similar to previous. No hemorrhage. No acute infarct. Ventricles: Ventricles are somewhat dilated out of proportion to the sulci raising the possibility of but not definite for normal pressure hydrocephalus. This may all be atrophy and is also similar to previous. Bones/joints: Unremarkable. Sinuses: Unremarkable as visualized. No acute sinusitis. Mastoid air cells: Unremarkable as visualized. No mastoid effusion. Orbits: Unremarkable as visualized. IMPRESSION: 1. Extensive white matter lesions in the deep and subcortical white matter are similar in size and distribution to the previous study with no new or enhancing lesions seen in this patient with history of multiple sclerosis. 2. Degree of supratentorial substance loss again is seen to be significantly greater than expected for stated age but is similar to previous. 3. Ventricles are somewhat dilated out of proportion to the sulci raising the possibility of but not definite for normal pressure hydrocephalus. This may all be atrophy and is also similar to previous.
[2018-03-02] MEDS ORDERED: Melatonin 3 MG TAB PO PRN (20:03)
--- NOTE | 2018-03-02 20:54 | CONS ---
NEUROLOGY CONSULTATION: DATE OF CONSULT: 03/02/18 PRIMARY CARE PHYSICIAN: Dr. Samuels. CHIEF COMPLAINT: Increased weakness, history of multiple sclerosis. HISTORY OF PRESENT ILLNESS: Valentino Bradley is a 38-year-old man well-known to me for followup of secondary progressive multiple sclerosis. He is quite disabled , but was pretty stable until about a week to 2 weeks ago. He had a change in a long- term caregiver and his mother thought that he just was not functioning because of fatigue and difficulty sleeping. Over time, it was clear he was actually getting weaker. He normally can ambulate with a walker or assistance and if he does fall which is not uncommon he is able to get himself back up. In the last week or less, he has been falling more and not able to lift himself back up again. He called my office and we arranged for some laboratory studies which is notable for a normal CBC, normal chemistry profile, normal vitamin B12 at 339, and negative urinalysis all done on 02/26/18. There is no change in any of his medications and so it was decided to bring him in to the emergency room for evaluation. He does not have any fevers or chills or sweats. There has been no change in his medications which he says he is getting reliably and his mother confirms that. He lives with his brother. He has been having problems sleeping lately and is not sure why. There has been no change in his vision. He is not having any problem swallowing, although his mother says he tends to put too much food in his mouth. He has a remote history of head injury but nothing recent. He denies any pain or extremity pain. His memory is very poor and his mother says he seems more disoriented lately that usual. He has history of kevin after receiving steroids several years ago requiring mental health admission. His last brain MRI was on 12/18/15, which revealed extensive multiple sclerosis changes, but no changes from a prior scan of a couple of years before. SOCIAL HISTORY: He lives with his brother. In the past, he has smoked marijuana. He does not drink alcohol. There is a home health aide with him during the day. PHYSICAL EXAM: Temperature is 96.9 by temporal scan, blood pressure 130/88, heart rate in the 60s and regular, respiratory rate is 17, and oxygen saturation is 96% on room air. Skin is warm and dry. Lungs are clear bilaterally. Heart is in a regular, rate, and rhythm without murmurs. Oral mucosa is moist. Head is atraumatic. Neurological Exam: Eye movements are choppy, but full. There is nystagmus which is sustained in leftward gaze and has diminished upward gaze. Facial musculature is symmetric. Funduscopic exam reveals pale discs bilaterally. Speech is mildly dysarthric. Motor exam reveals significant spasticity in both legs. He has a right ankle foot orthotic. There is mild spasticity in the arms. He has good strength in the arms proximally and distally. He has barely antigravity leg weakness on the right. He has grade 4 to 4- leg weakness on the left. There is dysmetria and [id number] maneuver symmetrically. He is alert and oriented to person and place. He is in a jovial mood as is usually the case when I see him. He has extremely poor memory. Attention, concentration, fund of knowledge are poor. Language is generally fluent but with frequent word- finding problems. IMPRESSION: Weakness of unclear etiology in a patient with secondary progressive multiple sclerosis. I would like to get an MRI scan of his brain and cervical spine with and without contrast to see if there are any new lesions , whether there are or not, my inclination is to treat him with steroids. There is a risk of him developing kevin, however; and I discussed that with his mother. I will start him on 500 mg of IV steroids tomorrow morning where we can keep an eye on him better. I will be signing him off to Dr. Walker and I will advise him of the situation. I would not plan on giving him oral steroids after the 3 day intravenous steroids with his prior history of kevin, but hopefully we will be able to improve his strength and get him back to where he was functioning a week or 2 ago. [id number]/[facility] #: [id number] [facility] CENTERSandra
--- NOTE | 2018-03-02 21:20 | HP ---
CC: Dr. Samuels; Dr. Savage * HISTORY AND PHYSICAL: DATE OF ADMISSION: 03/02/18 PRIMARY CARE PROVIDER: Dr. Samuels. NEUROLOGIST: Dr. Savage. CHIEF COMPLAINT: Increased weakness, spasticity, sleepiness, and confusion. HISTORY OF PRESENT ILLNESS: Mr. Bradley is a 38-year-old male who has a history of TBI at a young age and advanced multiple sclerosis who presents to the emergency room with complaints of increased spasticity, weakness, sleepiness , and confusion. The patient's mom and caregiver indicate this has been going on over the last 2 to 3 weeks. His symptoms have waxed and waned some. They did contact Dr. Savage twice over the last 1 week or so indicating that his symptoms were present and then were better. He was then contacted again and being told that symptoms had worsened again. It was recommended that the patient come to the emergency room for evaluation. The patient denies any other symptoms at this time. There has been nothing out of the ordinary per the patient's family. PAST MEDICAL HISTORY: 1. Depression. 2. Multiple sclerosis - advanced. 3. 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 MEDICATIONS: 1. Baclofen 20 mg p.o. t.i.d. 2. Vitamin B12 of 1000 mcg IM q.4 weeks. 3. Fish oil 1000 mg p.o. twice daily. 4. Oxybutynin 10 mg p.o. q.a.m., 5 mg p.o. q.p.m. 5. Rebif 44 mcg/0.5 mL, 0.5 mL subcu 3 times weekly. 6. Sertraline 50 mg p.o. daily. 7. Tizanidine 4 mg p.o. twice daily. 8. Vitamin D 2000 units p.o. daily. ALLERGIES: PENICILLIN. FAMILY HISTORY: Both mom and dad are living. They have a history of hypertension. SOCIAL HISTORY: The patient lives with support at this point. He does not drink alcohol. He does not smoke cigarettes, but does smoke a cigar occasionally. REVIEW OF SYSTEMS: A complete 11-system review of systems is obtained. Pertinent positives and negatives are as per HPI and otherwise negative. PHYSICAL EXAMINATION GENERAL: The patient is a well-developed, young male seen sitting up in the stretcher, in no acute distress. VITAL SIGNS: Blood pressure 130/88, pulse 63, respirations 17, temp 96.9, O2 sat 97% on room air. HEENT: Pupils are equal and round. Extraocular muscles are intact. Oropharynx is clear. Oral mucosa is moist. There is no submandibular, cervical , or supraclavicular adenopathy noted. PULMONARY: Lungs are clear to auscultation bilaterally. CARDIAC: Normal S1, S2. Regular rate and rhythm. I do not appreciate any murmurs. ABDOMEN: Bowel sounds present. Abdomen is soft, nontender, nondistended. MUSCULOSKELETAL: There is no cyanosis or clubbing of the digits. There is full active range of motion of all 4 extremities. The patient does wear a brace on his right lower extremity. The right side is reportedly his weaker side per his mom. NEURO: Cranial nerves II through XII appeared to be grossly intact. Sensation is intact. Strength appears to be normal. PSYCH: The patient is awake, alert, and oriented x3. SKIN: Warm and dry. He does have numerous red hive-like appearing lesions on his abdomen. Per the patient's caregiver, this is secondary to the Rebif that he injects 3 times weekly. There is area of firmness to the left lower quadrant that is ellipsoid in shape. This is nontender and does not correlate with anything on the skin surface. DIAGNOSTIC STUDIES/LAB DATA: Labs: Sodium 139, potassium 4.2, chloride 105, CO2 of 28, BUN 12, creatinine 0.84, glucose 93. Calcium 9.7. Bilirubin 0.4, AST 31, ALT 49, alk phos 86. Albumin 4.1. ASSESSMENT AND PLAN: Mr. Bradley is an unfortunate 38-year-old male with a history of traumatic brain injury at the age of 7 as well as advanced multiple sclerosis who presents to the emergency room with 2 to 3 weeks of intermittent increased spasticity, weakness, sleepiness, and confusion with concern for multiple sclerosis flare. 1. Multiple sclerosis. At this point, the concern is that the patient may have having a multiple sclerosis flare. Dr. Savage has seen the patient in consultation in the emergency room. The plan will be to obtain an MRI with contrast to evaluate for active disease. Dr. Savage has also ordered Solu- Medrol 500 mg to be given IV daily, starting on 03/03/18. The patient will continue on his usual doses of baclofen and tizanidine. There are no clear signs of infection that may have led to his worsened symptoms. 2. DVT prophylaxis. According to the Adult Thrombosis Prophylaxis Risk Factor Assessment Guide, the patient has a total risk factor score of 1, making him low risk. Heparin 5000 units subcutaneous q.12 hours will be utilized as DVT prophylaxis. 3. Code status is full. TIME SPENT: Fifty-five minutes was spent admitting this patient. [id number]/[facility] #: [id number] LULA
[2018-03-02] MEDS: Oxybutynin TAB* 5 MG PO SCH (22:04)
[2018-03-02] MEDS: Heparin VIAL(*) 5000 UNITS/ML VIAL (FIVE THOUSAND) SUBCUT SCH (22:11)
[2018-03-03] MEDS: tiZANidine TAB* 2 MG PO SCH ×3 (07:26→20:46)
[2018-03-03] MEDS: methylPREDNISolone SOD SUCC* 500 MG in NS 0.9% 100 ML* 100 ML IVPB SCH (09:23)
[2018-03-03] MEDS: Baclofen TAB* 10 MG PO SCH ×3 (09:24→20:46)
[2018-03-03] MEDS: Oxybutynin TAB* 5 MG PO SCH ×2 (09:24→20:46)
[2018-03-03] MEDS: Sertraline* 50 MG TAB PO SCH (09:24)
[2018-03-03] MEDS: Heparin VIAL(*) 5000 UNITS/ML VIAL (FIVE THOUSAND) SUBCUT SCH ×2 (09:25→20:47)
--- NOTE | 2018-03-03 09:43 | PN ---
Subjective Date of Service: 03/03/18 Interval History: Pt is feeling well. He denies any pain. No other issues. He states he is strong but per nursing notes the patient has only been able to get to standing and not walk. Objective Active Medications: Baclofen (Lioresal Tab*) 20 mg PO TID [facility] Last Admin: 03/03/18 09:24 Dose: 20 mg Heparin Sodium (Porcine) (Heparin Vial(*)) 5,000 units SUBCUT Q12HR [facility] Last Admin: 03/03/18 09:25 Dose: 5,000 units Methylprednisolone Sodium Succinate 500 mg/ Sodium Chloride 100 mls @ 100 mls/ hr IVPB DAILY [facility] Stop: 03/05/18 10:00 Last Admin: 03/03/18 09:23 Dose: 100 mls/hr Ibuprofen (Motrin Tab*) 600 mg PO Q6H PRN PRN Reason: PAIN Interferon Beta 1a (Rebif (Nf)) 44 mcg SUBCUT MoWeFr [facility] Last Admin: 03/02/18 22:05 Dose: 44 mcg Melatonin (Melatonin) 3 mg PO BEDTIME PRN; Protocol PRN Reason: SLEEP Oxybutynin Chloride (Ditropan Tab*) 5 mg PO BID [facility] Last Admin: 03/03/18 09:24 Dose: 5 mg Sertraline HCl (Zoloft*) 50 mg PO DAILY [facility] Last Admin: 03/03/18 09:24 Dose: 50 mg Tizanidine HCl (Zanaflex Tab*) 4 mg PO Q8H [facility] Last Admin: 03/03/18 07:26 Dose: 4 mg Vital Signs - 8 hr 03/03/18 03/03/18 03:59 07:42 Temperature 98.3 F 98.8 F Pulse Rate 85 77 Respiratory 16 16 Rate Blood Pressure 137/92 130/89 (mmHg) O2 Sat by Pulse 96 97 Oximetry Oxygen Devices in Use Now: None Appearance: Young male sitting up in bed, eating breakfast, NAD Ears/Nose/Mouth/Throat: Mucous Membranes Moist Respiratory: Symmetrical Chest Expansion and Respiratory Effort, Clear to Auscultation Cardiovascular: NL Sounds; No Murmurs; No JVD, RRR, No Edema Abdominal: NL Sounds; No Tenderness; No Distention Extremities: No Clubbing, Cyanosis Skin: No Nodules or Sclerosis Neurological: - - alert, questionably mildly confused Result Diagrams: 03/02/18 14:21 Assess/Plan/Problems-Billing Mr Bradley is a 38 yo M who has a h/o advanced MS and h/o TBI who presented to the ER for evaluation of 2-3 weeks of intermittent increased weakness, spasticity, sleepiness and confusion and was admitted for evaluation and treatment of a possible MS flare. - Patient Problems (1) Multiple sclerosis exacerbation Current Visit: Yes Status: Acute Code(s): G35 - MULTIPLE SCLEROSIS SNOMED Code(s): 742698173 Comment: MRI shows chronic changes associated with MS. No new or enhancing lesions were identified. Pt due to get 500mg IV solumedrol this AM. Await recommendations from Dr. Walker. In the meantime continue baclofen, tizanidine and Rebif. (2) DVT prophylaxis Current Visit: Yes Status: Acute Code(s): SNQ9679 - SNOMED Code(s): 722152582 Comment: SQ heparin (3) Full code status Current Visit: Yes Status: Acute Code(s): Z78.9 - OTHER SPECIFIED HEALTH STATUS SNOMED Code(s): 666526811
[2018-03-04] MEDS: tiZANidine TAB* 2 MG PO SCH (09:13)
[2018-03-04] MEDS: Baclofen TAB* 10 MG PO SCH (09:13)
[2018-03-04] MEDS: methylPREDNISolone SOD SUCC* 500 MG in NS 0.9% 100 ML* 100 ML IVPB SCH (09:13)
[2018-03-04] MEDS: Sertraline* 50 MG TAB PO SCH (09:14)
[2018-03-04] MEDS: Oxybutynin TAB* 5 MG PO SCH (09:14)
[2018-03-04] MEDS: Heparin VIAL(*) 5000 UNITS/ML VIAL (FIVE THOUSAND) SUBCUT SCH (09:14)
[2018-03-04 09:37] VITALS: BP 129/85
--- NOTE | 2018-03-04 22:49 | PN ---
PROGRESS NOTE: DATE OF VISIT: 03/03/18 DATE OF DICTATION: 03/04/18 I had dictated yesterday on 03/03/18, but that note is not in the chart, this is re- dictation and I will be dictating another note. SUBJECTIVE: This 38-year-old man with severe progressive multiple sclerosis seen on 03/02/[address] Savage. He has had a past history of difficult to control MS and is on no medications offered at this time other than his Rebif. He has, given some global weakness, been started on Solu-Medrol 500 mg the morning I saw him. The concern has been that he had a significant psychological decompensation in the past when he has been on Solu-Medrol, so lower dose was used. He actually had a psych hospitalization following his prior Solu-Medrol infusion. His MRI scan was unchanged both his brain and cervical with and without contrast and his exam was unchanged from Dr. Savage's the day before with poor saccades, nystagmus on left gaze, dysarthric speech, as well as diffuse spasticity and weakness in his legs, worse on the right than the left with trace weakness in his arms. Family and the patient strongly wanted to go home yesterday and I discussed with them that given his prior reaction to steroids, it makes sense as to keep him overnight, give him 1 more infusion and then, he can go home with either his last infusion done in the ER on Monday or possibly in the infusion center on Monday. They were agreeable with this plan. Thank you for sharing his case. [id number]/[facility] #: [id number] LULA
--- NOTE | 2018-03-04 22:57 | PN ---
NEUROLOGICAL FOLLOWUP NOTE: DATE OF SERVICE: 03/04/18 DATE OF DICTATION: 03/03/18 PATIENT OF: Dr. Mcadams. HISTORY: He has tolerated his Solu-Medrol yesterday without problem. He feels , if anything, a little stronger. He is getting his second infusion now as we speak. Other medications remain unchanged. Temperature 97.3, pulse 63, respirations 16, blood pressure 129/85. His neurological status is unchanged with nystagmus to the left, coarse saccades, weakness in his legs worse on the right than the left. There is just trace weakness in his upper extremities. Chest: Clear. Cardiovascular: Regular rate and rhythm. He and the family strongly want to go home and so he is going to go home today after his infusion is complete. I have spoken to Dr. Mcadams about this. I discussed that he could get infusion in the ER tomorrow if he prefers or he can call Dr. Savage in my office on Monday and I would be glad to arrange for the infusion with Dr. Savage at the infusion center if Dr. Savage does not follow up, otherwise it will be through Dr. Savage. I have spoken to Dr. Mcadams about this arrangement. Thank you for sharing his case. [id number]/[facility] #: [id number] LULA
--- NOTE | 2018-03-04 23:30 | DS ---
CC: Dr. Samuels; Dr. Savage * DISCHARGE SUMMARY: DATE OF ADMISSION: 03/02/18 DATE OF DISCHARGE: 03/04/18 PRIMARY CARE PROVIDER: Dr. Samuels NEUROLOGIST: Dr. Savage PRINCIPAL DIAGNOSIS: Possible multiple sclerosis exacerbation. SECONDARY DIAGNOSES: 1. Depression. 2. History of traumatic brain injury. 3. History of steroid-induced psychosis. DISCHARGE MEDICATIONS: 1. Baclofen 20 mg p.o. t.i.d. 2. Vitamin B12 1000 mcg IM q.4 weeks. 3. Fish oil 1000 mg p.o. twice daily. 4. Oxybutynin 10 mg p.o. q.a.m., 5 mg p.o. q.p.m. 5. Rebif 44 mcg subcutaneous 3 times weekly. 6. Sertraline 50 mg p.o. daily. 7. Tizanidine 4 mg p.o. twice daily. 8. Vitamin D 2000 units p.o. daily. HOSPITAL COURSE: Mr. De lReal is a 38-year-old male with history of advanced multiple sclerosis followed by Dr. Savage in the outpatient setting, who presents to the emergency room with complaints of 2 to 3 weeks of intermittent increased spasticity, weakness, sleepiness, and confusion. Dr. Savage saw the patient in the emergency room and felt this was possibly representing an MS exacerbation. The patient underwent MRI of the cervical spine and brain. These revealed multiple white matter lesions on the cervical spinal cord and upper thoracic cord consistent with the given history of multiple sclerosis. These are evidenced throughout the visualized portion of the cord most prominent from C2 to C4. None of these lesions enhanced or have associated mass. The brain MRI reveals extensive white matter lesions in the deep and subcortical white matter, which are similar in size and distribution to the previous study with no new or enhancing lesions seen in this patient with a history of multiple sclerosis. The degree of supratentorial substance loss seen is significantly greater than expected for stated age, but is similar to previous. Ventricles are somewhat dilated half portion to the sulci raising any possibility of but not definite for normal pressure hydrocephalus. This may all be atrophy also similar to previous. The patient despite having no enhancing lesions on MRI, was recommended to receive IV Solu-Medrol. He received the dose on 03/03/18. He tolerated the dose of Solu-Medrol without developing kevin. The dose was therefore given on 03/04. The patient and his family were anxious for him to be discharged from the hospital and because of this the patient was discharged home on 03/04/18 with help from his family at home. The patient's mom who contacted Dr. Savage's office on Monday03/06/18 to be set-up for the last infusion of Solu-Medrol that day. On the day of discharge, the patient is awake and interactive, sitting up in bed , in no acute distress. His cardiac exam reveals normal S1, S2 with regular rate and rhythm. His lungs are clear. His abdomen is soft, nontender, nondistended. The patient felt to be stable for discharge home. FOLLOWUP CONCERNS: The patient is being discharged home today, 03/04/18. He needs to call back Dr. Savage's office on 03/06/18 to be set-up for his last dose of Solu-Medrol. ACTIVITY LEVEL: As tolerated. DIET: Regular. CONDITION ON DISCHARGE: Stable. TIME SPENT: 30 minutes was spent discharging this patient. [id number]/[facility] #: [id number] MTDSandra
== END 2018-03-04 13:00 | disposition home or self-care (01) ==
LOC: ED 11:38 → INTOOBSV 14:05 → MED 14:05
PROVIDERS: ADMIT Internal Medicine; ATTEND Hospitalist
DX: R53.1 Weakness (principal); R25.2 Cramp and spasm; R41.0 Disorientation, unspecified; G35 Multiple sclerosis; F32.9 Major depressive disorder, single episode, unspecified; Z87.820 Personal history of traumatic brain injury; Z79.899 Other long term (current) drug therapy; Z88.0 Allergy status to penicillin; F17.200 Nicotine dependence, unspecified, uncomplicated
CPT/HCPCS: 36415; 70553; 72156; 80053; 96372; 96374; 99282; A9270-GY; A9579; J1644; J2930

== ENCOUNTER 2018-04-24 12:26 | Emergency (ER) | payer MEDICARE, MEDICAID ==
--- OUTSIDE RECORDS SUMMARY | 2018-04-24 12:33 | XMS REPORT | Continuity of Care Document ---
:1980 External Reference #:[id number] Author Name Sascha Handley, OD Address [address] [place] [address] Care Team Providers Name Role Phone Tien Samuels MD Care Team Information Airline Flight Attendant Unavailable Tien Samuels MD Primary Care Physician Unavailable Payers Type Date Identification Numbers Payment Provider Subscriber Policy Number: [id number] Medicare [facility] Vignesh Bradley PayID: [id number] [address] [place] [address] Policy Number: [id number] [place] Vignesh Bradley PayID: [id number] [address] [place] [address] Advance Directives Description No Information Available Problems Date Description Provider Status Onset: 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 Active Onset: 01/27/2015 Myopia Sima Puente O.D. Active Onset: 01/27/2015 Multiple sclerosis Sima Puente O.D. Active Family History Date Family Member(s) Problem(s) Comments General No Current Problems Father No Current Problems Mother High BP Social History Type Date Description Comments Sex Unknown ETOH Use Denies alcohol use Tobacco Use Start: Unknown Patient is a current smoker, smokes every day Smoking Status Reviewed: 04/19/18 Patient is a current smoker, smokes every day Allergies, Adverse Reactions, Alerts Date Description Reaction Status Severity Comments 01/27/2015 Penicillin Active Medications Medication Date Status Form Strength Qnty SIG Indications Ordering Provider Oxybutynin Active Tablets 5mg Unknown Chloride 0 Rebif Rebidose Active Solution 44mcg/0.5ML Unknown 0 Tizanidine HCL Active Capsules 4mg Unknown 0 Baclofen Active Tablets 20mg Unknown 0 Sertraline HCL Active Tablets 50mg Unknown 0 Vitamin D Active Tablets 400Unit Unknown 0 Fish Oil Active Capsules Unknown 0 Immunizations Description No Information Available Vital Signs Date Vital Result Comment 02/03/2017 1:19pm Intraocular Pressure Right Eye 15 mmHg Intraocular Pressure Left Eye 14 mmHg 02/03/2016 1:28pm Intraocular Pressure Right Eye 15 mmHg Intraocular Pressure Left Eye 15 mmHg 01/27/2015 1:37pm Intraocular Pressure Right Eye 15 mmHg Intraocular Pressure Left Eye 14 mmHg Results Description No Information Available Procedures Date Code Description Status 01/17/2018 87060 Oct, Optic Nerve Completed 01/17/2018 83176 Visual Field Exam Extended, Unilateral Or Bilateral Completed 01/17/2018 40063 Eye Exam Est Intermediate Completed 02/03/2017 34240 Fundus Photography W/Interpretation & Report Completed 02/03/2017 13324 Eye Exam Est Comprehensive Completed 02/03/2016 61167 Fundus Photography W/Interpretation & Report Completed 02/03/2016 39265 Eye Exam Est Comprehensive Completed 03/03/2015 39776 Visual Field Exam Extended, Unilateral Or Bilateral Completed 03/03/2015 43184 Eye Exam Est Intermediate Completed 01/27/2015 25119 Oct, Optic Nerve Completed 01/27/2015 21621 Refraction Completed 01/27/2015 88560 Eye Exam New Comprehensive Completed Encounters Description No Information Available Plan of Treatment 04/19/2018 - Sascha Handley, ODH47.293 Other optic atrophy, [id number] Multiple [id number] Myopia, bilateralFollow up:6 mos VF/OCT nerve, sooner PRN
[2018-04-24 13:02] VITALS: BP 144/97
--- NOTE | 2018-04-24 14:26 | UC ---
Cardiac HPI - HPI Summary HPI Summary: 38-year-old male with history of multiple sclerosis and traumatic brain injury presents with healthcare aid reporting 2 day history of right anterior chest wall pain following an unwitnessed fall within the past few days. Patient is not able to give a good history due to his TBI but does recall hitting his chest on part of his walker when he fell. Unable to describe the pain but states reproducible with palpation and hurts with deep breath. Denies any other injury, fever, chills, shortness of breath, cough, abdominal pain, nausea, or vomiting. - History of Current Complaint Chief Complaint: UCBackPain Stated Complaint: R RIB PAIN Time Seen by Provider: 04/24/18 13:59 Hx Obtained From: Patient, Family/Process Cheese Cooker Onset/Duration: Lasting Days - 2 Pain Intensity: 8 Chest Pain Location: Right Anterior Associated Signs & Symptoms: Negative: Headaches, Dizziness, SOB, Syncope, Fever , Nausea/Vomiting, Palpitations, Cough, Hemoptysis, Back Pain, Abdominal Pain - Allergy/Home Medications Allergies/Adverse Reactions: Allergies Allergy/AdvReac Type Severity Reaction Status Date / Time Penicillins Allergy Rash And Verified 04/24/18 13:02 Itching PMH/Surg Hx/FS Hx/Imm Hx Other Psychological History: MS, TBI Other History Of: Negative For: Anticoagulant Therapy - Surgical History Surgical History: Yes Surgery Procedure, Year, and Place: jaw 1983 approx - Family History Known Family History: Positive: Cardiac Disease, Hypertension, Diabetes, Other - Positive cancers - Social History Occupation: Disabled Lives: With Family Alcohol Use: None Substance Use Type: None Substance Use Comment - Amount & Last Used: daily Smoking Status (MU): Former Smoker Type: Cigarettes Amount Used/How Often: 1/2 PPD Have You Smoked in the Last Year: Yes When Did the Patient Quit Smoking/Using Tobacco: quit 6 months ago Household Exposure Type: Cigarettes, Cigars - Immunization History Most Recent Influenza Vaccination: Unable to recall Most Recent Tetanus Shot: UNKNOWN Most Recent Pneumonia Vaccination: NA Review of Systems Constitutional: Negative Skin: Negative Respiratory: Negative Cardiovascular: Negative Gastrointestinal: Negative Is Patient Immunocompromised?: No All Other Systems Reviewed And Are Negative: Yes Physical Exam Triage Information Reviewed: Yes Appearance: Well-Appearing, No Pain Distress, Well-Nourished Vital Signs: Initial Vital Signs Temp 98.7 F 04/24/18 12:55 Pulse 65 04/24/18 12:55 Resp 18 04/24/18 12:55 BP 144/97 04/24/18 12:55 Pulse Ox 97 04/24/18 12:55 Neck: Positive: Supple, Nontender Respiratory: Positive: Lungs clear, Normal breath sounds, No respiratory distress, Other: - Mild chest wall tenderness to right anterior chest. No crepitus, subcutaneous emphysema, or bruising. Cardiovascular: Positive: RRR, No Murmur Abdomen Description: Positive: Nontender, No Organomegaly, Soft. Negative: Distended, Guarding Neurological: Positive: Alert Skin Exam: Normal Diagnostics - Radiology No standard instances Radiology Interpretation Completed By: Radiologist Summary of Radiographic Findings: Patient Name: LUCERO LUCIO Medical Record#: [id number]. Ordering Physician: Santiago Moreno NP Acct.#: [id number]. : 1980 Age: 38 Sex: M Location: [facility]. Exam Date: 04/24/18 141 ADM Status: REG ER. Order Information: CHEST PA LAT 2 VWS. Accession Number: [id number]. CPT: 02356. HISTORY: chest wall pain s/p fall. COMPARISONS: 04/23 2017. VIEWS: 2: Frontal and lateral views of the chest. FINDINGS: CARDIOMEDIASTINAL SILHOUETTE: The cardiomediastinal silhouette is normal. MARTINA: The martina are normal. PLEURA: The costophrenic angles are sharp. No pleural abnormalities are noted. LUNG PARENCHYMA: The lungs are clear. ABDOMEN: The upper abdomen is clear. There is no subphrenic gas. BONES AND SOFT TISSUES: No bone or soft tissue abnormalities are noted. OTHER: None. IMPRESSION: NO ACTIVE CARDIOPULMONARY DISEASE. - Assessment/Plan Course Of Treatment: 38 year old male with history of MS and TBI presents with chest wall pain after an unwitnessed fall in which he struck his chest on handle of walker. Exam revealed some mild right anterior chest wall tenderness. CXR normal. Symptoms likely contusion of chest. Recommend symtomatic treatment with OTC analgesics and deep breathing exercises to prevent pneumonia. This was discussed with healthcare aid and family who verbalize understanding. - Clinical Impression Provider Diagnoses: chest wall contusion Discharge - Sign-Out/Discharge Documenting (check all that apply): Patient Departure All imaging exams completed and their final reports reviewed: Yes - Discharge Plan Condition: Stable Disposition: HOME Patient Education Materials: Rib Contusion (ED) Referrals: Tien Samuels MD [Primary Care Provider] - If Needed Additional Instructions: The chest x-ray that was performed in the clinic today was normal and showed no evidence of rib fracture. I suspect that your symptoms are from a contusion of your chest wall. Using [id number] pain medication such as acetaminophen (Tylenol) or ibuprofen (Advil, Motrin) according to directions as needed for pain. Its important that you do some deep breathing exercises every couple of hours while awake to help prevent pneumonia. Follow-up with your primary care provider if symptoms persist. Seek immediate medical attention in the emergency room if you develop a fever greater than 100.5 F, have worsening chest pain, weakness or dizziness, difficulty breathing, coughing up blood, or have any worsening of symptoms. - Billing Disposition and Condition Condition: STABLE Disposition: Home
--- NOTE | 2018-04-24 14:39 | RAD ---
HISTORY: chest wall pain s/p fall COMPARISONS: 04/23 2017 VIEWS: 2: Frontal and lateral views of the chest. FINDINGS: CARDIOMEDIASTINAL SILHOUETTE: The cardiomediastinal silhouette is normal. SEEMA: The seema are normal. PLEURA: The costophrenic angles are sharp. No pleural abnormalities are noted. LUNG PARENCHYMA: The lungs are clear. ABDOMEN: The upper abdomen is clear. There is no subphrenic gas. BONES AND SOFT TISSUES: No bone or soft tissue abnormalities are noted. OTHER: None. IMPRESSION: NO ACTIVE CARDIOPULMONARY DISEASE.
== END 2018-04-24 15:00 | disposition home or self-care (01) ==
LOC: UCEAST 12:26
DX: S20.211A Contusion of right front wall of thorax, initial encounter (principal); W19.XXXA Unspecified fall, initial encounter; Y92.9 Unspecified place or not applicable; Z88.0 Allergy status to penicillin; Z87.891 Personal history of nicotine dependence
CPT/HCPCS: 71046; 99211; G0463

== ENCOUNTER 2018-09-19 11:18 | Emergency (ER) | payer MEDICARE, MEDICAID ==
--- NOTE | 2018-09-19 11:52 | UC ---
Skin Complaint HPI - HPI Summary HPI Summary: 38-year-old male with history of MS and TBI presents with caregiver reporting areas of tender erythema to his abdomen that of progressively worsened over the last 5 days. Patient receives interferon beta-1a subcutaneous injections 3 times a week for his MS. Caregiver is unsure of the location of his most recent injections although states that the areas of erythema are consistent with where he receives these injections. Caregiver also notes that for the past couple weeks patient has appeared to be having a flareup of his MS which she characterizes as intermittent spasming and stiffening of his lower extremities. States they spoke to Dr. Savage's office who follows him for his MS and they recommended that he be evaluated for possible skin infection. Denies fever, chills, malaise, weakness, dizziness, lightheadedness, chest pain , shortness of breath, abdominal pain, nausea, vomiting, diarrhea, or urinary symptoms. - History of Current Complaint Chief Complaint: UCGeneralIllness Time Seen by Provider: 09/19/18 11:40 Stated Complaint: MED REACTION Hx Obtained From: Patient Pain Intensity: 5 - Allergy/Home Medications Allergies/Adverse Reactions: Allergies Allergy/AdvReac Type Severity Reaction Status Date / Time Penicillins Allergy Rash And Verified 09/19/18 11:30 Itching PMH/Surg Hx/FS Hx/Imm Hx Neurological History: Other - MS, TBI Psychological History: Depression Other History Of: Negative For: Anticoagulant Therapy - Surgical History Surgical History: Yes Surgery Procedure, Year, and Place: 1982 approx - Family History Known Family History: Positive: Cardiac Disease, Hypertension, Diabetes, Other - Positive cancers - Social History Occupation: Unemployed Lives: With Family Alcohol Use: None Substance Use Type: None Substance Use Comment - Amount & Last Used: daily Smoking Status (MU): Former Smoker Type: Cigarettes Amount Used/How Often: 1/2 PPD Have You Smoked in the Last Year: Yes When Did the Patient Quit Smoking/Using Tobacco: quit 6 months ago Household Exposure Type: Cigarettes, Cigars - Immunization History Most Recent Influenza Vaccination: Unable to recall Most Recent Tetanus Shot: UNKNOWN Most Recent Pneumonia Vaccination: NA Review of Systems All Other Systems Reviewed And Are Negative: Yes Constitutional: Negative: Fever, Chills Skin: Positive: Other - See HPI Respiratory: Positive: Negative Cardiovascular: Positive: Negative Gastrointestinal: Positive: Negative Genitourinary: Positive: Negative Neurological: Positive: Negative Is Patient Immunocompromised?: No Physical Exam - Summary Physical Exam Summary: GENERAL APPEARANCE: Well developed, well nourished, alert and cooperative, and appears to be in no acute distress. CARDIAC: Normal S1 and S2. No S3, S4 or murmurs. Rhythm is regular. There is no peripheral edema, cyanosis or pallor. Extremities are warm and well perfused. Capillary refill is less than 2 seconds. Peripheral pulses intact. LUNGS: Clear to auscultation without rales, rhonchi, wheezing or diminished breath sounds. ABDOMEN: Positive bowel sounds. Soft, nondistended, nontender. No guarding or rebound. No masses or hepatosplenomegally. MUSKULOSKELETAL: ROM intact to all extremities. No joint erythema or tenderness. SKIN: Two elliptical tender areas of erythema with mild induration to the right mid and lower abdomen approximately 4 cm x 5 cm, no flutuance noted, mild diffuse erythema noted across the entire abdomen. Triage Information Reviewed: Yes Vital Signs: Initial Vital Signs Temp 97.7 F 09/19/18 11:25 Pulse 66 09/19/18 11:25 Resp 16 09/19/18 11:25 BP 146/104 09/19/18 11:25 Pulse Ox 99 09/19/18 11:25 Vital Signs Reviewed: Yes Course/Dx - Course Course Of Treatment: 38-year-old male with history of MS and TBI presents with caregiver reporting areas of tender erythema to his abdomen that of progressively worsened over the last 5 days. Patient receives interferon beta-1a subcutaneous injections 3 times a week for his MS. Caregiver is unsure of the location of his most recent injections although states that the areas of erythema are consistent with where he receives these injections. Caregiver also notes that for the past couple weeks patient has appeared to be having a flareup of his MS which she characterizes as intermittent spasming and stiffening of his lower extremities. States they spoke to Dr. Savage's office who follows him for his MS and they recommended that he be evaluated for possible skin infection. Denies fever, chills, malaise, weakness, dizziness, lightheadedness, chest pain , shortness of breath, abdominal pain, nausea, vomiting, diarrhea, or urinary symptoms. Afebrile. Mildly hypertensive otherwise vital signs stable. Exam reveals an chronically ill-appearing adult male in no acute distress with two elliptical tender areas of erythema with mild induration to the right mid and lower abdomen approximately 4 cm x 5 cm, no flutuance noted, mild diffuse erythema noted across the entire abdomen, and otherwise unremarkable exam. His symptoms are suspicious for a cellulitis of the abdominal wall therefore we'll start him on Bactrim DS 1 tablet twice a day 7 days. He is to return here or follow up with his primary care provider if there is no improvement within the next 2 days. Anticipatory guidance and warning symptoms were reviewed with the patient and caregiver. Verbalized understanding and agreed with plan of care. - Differential Diagnoses - Skin Complaint Differential Diagnoses: Cellulitis, Contact Dermatitis, Drug Rash, Local Allergic Reaction, MRSA, Urticaria - Diagnoses Provider Diagnosis: Cellulitis of abdominal wall Discharge - Sign-Out/Discharge Documenting (check all that apply): Patient Departure All imaging exams completed and their final reports reviewed: No Studies - Discharge Plan Condition: Stable Disposition: HOME Prescriptions: Sulfamethox/Trimethoprim DS* [Bactrim DS 800/160 TAB*] 1 tab PO BID 7 Days #14 tab Patient Education Materials: Cellulitis (ED) Referrals: Tien Samuels MD [Primary Care Provider] - 2 Days (If no improvement in symptoms.) Delfino Savage MD [Medical Doctor] - If Needed (Contact Dr. Norwood if he continues to have symptoms of MS flare.) Additional Instructions: The redness on the abdomen appears to be an infection of the skin called cellulitis. We will start you on an antibiotic to treat for the infection. Start Bactrim DS 1 tab twice a day for 7 days. Return here or follow up with your primary care provider in 2 days if symptoms do not improve. Continue to monitor his MS symptoms. Contact Dr. Norwood if symptoms do not improve or worsen after treating him for the infection. Seek immediate medical attention in the emergency room if you develop a fever greater than 100.5 F, the redness continues to spread, or you have any worsening of symptoms. - Billing Disposition and Condition Condition: STABLE Disposition: Home
[2018-09-19 12:16] VITALS: BP 130/90
== END 2018-09-19 12:15 | disposition home or self-care (01) ==
LOC: UCEAST 11:18
DX: L03.311 Cellulitis of abdominal wall (principal); G35 Multiple sclerosis; Z87.891 Personal history of nicotine dependence; Z88.0 Allergy status to penicillin; Z87.820 Personal history of traumatic brain injury
CPT/HCPCS: 99212; G0463

== ENCOUNTER 2020-10-10 18:57 | Inpatient (IN) ==
[2020-10-10] MEDS ORDERED: metroNIDAZOLE IV 500 MG/100ML 500 MG/100 ML BAG IVPB ONE (19:29)
[2020-10-10] MEDS ORDERED: Cefepime 2 GM in NS 0.9% 50 ML 50 ML IVPB ONE (19:29)
[2020-10-10] MEDS ORDERED: NS 0.9% 1000 ml BAG 1,000 ML IV.FLUID IV ONE (19:29)
[2020-10-10 20:07] LABS: ABS Basophils 0.1 10^3/ul (0-0.2); ABS Lymphocytes 1.2 10^3/ul (1.0-4.8); ABS Monocytes 1.5 10^3/ul (0-0.8); ABS Neutrophils 18.9 10^3/ul (1.5-7.7); Hematocrit 45 % (42-52); Hemoglobin 15.2 g/dL (14.0-18.0); Lymphocyte % 5.5 %; Mean Corpuscular HGB Conc 34 g/dL (31-36); Mean Corpuscular Hemoglobin 29 pg (27-31); Mean Corpuscular Volume 85 fL (80-94); Mean Platelet Volume 9.7 fL (7.4-10.4); Platelet Count 270 10^3/uL (150-450); Red Blood Count 5.29 10^6 /uL (4.18-5.48); Red Cell Distribution Width 14 % (10-15); White Blood Count 21.7 10^3/uL (3.5-10.8)
[2020-10-10] MEDS ORDERED: Vancomycin 1,500 MG in NS 0.9% 250 ml 250 ML IVPB ONE (20:15)
[2020-10-10 20:16] LABS: Activated Partial Thrombo Time 31.7 seconds (26.0-38.0); INR 1.31 (0.82-1.09)
[2020-10-10 20:20] LABS: Influenza A Molecular Negative (Negative); Influenza B Molecular Negative (Negative)
[2020-10-10 20:23] LABS: ALT 43 U/L (7-52); AST 22 U/L (13-39); Albumin 4.1 g/dL (3.2-5.2); Albumin/Globulin Ratio 1.2 (1-3); Alkaline Phosphatase 105 U/L (34-104); Anion Gap 12 mmol/L (2-11); BUN/Creatinine Ratio 14.9 (8-20); Blood Urea Nitrogen 13 mg/dL (6-24); CO2 Carbon Dioxide 21 mmol/L (22-32); Calcium 9.6 mg/dL (8.6-10.3); Chloride 103 mmol/L (101-111); EGFR Non-African American 96.7 (>60); Globulin 3.5 g/dL (2-4); Glucose 138 mg/dL (70-100); Potassium 3.7 mmol/L (3.5-5.0); Sodium 136 mmol/L (135-145); Total Protein 7.6 g/dL (6.4-8.9)
[2020-10-10 20:30] LABS: Troponin I 0.05 ng/mL (<0.03)
[2020-10-10 20:32] LABS: Urine Appearance Turbid; Urine Bilirubin Negative (Negative); Urine Blood 1+ (Negative); Urine Color Yellow; Urine Glucose Negative (Negative); Urine Ketones Trace (Negative); Urine Nitrite Positive (Negative); Urine Protein 2+(100 mg/dL) (Negative); Urine Specific Gravity 1.012 (1.002-1.030); Urine Urobilinogen Negative (Negative)
[2020-10-10 21:02] LABS: Urine Bacteria 2+ (Absent); Urine Red Blood Cell 1+(3-5/hpf) (Absent); Urine White Blood Cell 3+(>20/hpf) (Absent)
[2020-10-10] MEDS ORDERED: CMCS:OMEGA-3 FATTY ACID 1000 mg(NF) PO SCH (22:00)
[2020-10-10] MEDS ORDERED: Cefepime 2 GM IV - ED ONCE IV ONE (22:00)
[2020-10-11] MEDS: Enoxaparin 40 MG/0.4 ML SYR SUBCUT SCH ×2 (00:01→20:49)
[2020-10-11 00:50] LABS: Troponin I 0.06 ng/mL (<0.03)
[2020-10-11 05:35] LABS: ABS Basophils 0.1 10^3/ul (0-0.2); ABS Lymphocytes 1.4 10^3/ul (1.0-4.8); ABS Monocytes 1.2 10^3/ul (0-0.8); ABS Neutrophils 15.5 10^3/ul (1.5-7.7); Eosinophil % 0.2 %; Hematocrit 39 % (42-52); Hemoglobin 13.4 g/dL (14.0-18.0); Lymphocyte % 7.8 %; Mean Corpuscular HGB Conc 34 g/dL (31-36); Mean Corpuscular Hemoglobin 29 pg (27-31); Mean Corpuscular Volume 86 fL (80-94); Mean Platelet Volume 9.3 fL (7.4-10.4); Platelet Count 216 10^3/uL (150-450); Red Blood Count 4.56 10^6 /uL (4.18-5.48); Red Cell Distribution Width 14 % (10-15); White Blood Count 18.1 10^3/uL (3.5-10.8)
[2020-10-11 05:46] LABS: BUN/Creatinine Ratio 12.6 (8-20); C Reactive Protein 228.17 mg/L (<8.01); Calcium 8.6 mg/dL (8.6-10.3); EGFR African American 105.7 (>60); EGFR Non-African American 87.4 (>60)
[2020-10-11 06:04] LABS: Troponin I 0.05 ng/mL (<0.03)
[2020-10-11] MEDS ORDERED: TERIFLUNOMIDE 14 MG PO SCH (09:00)
[2020-10-11] MEDS ORDERED: cefTRIAXone 1 gm/50 mL NS BAG 1 GM/50 ML BAG IVPB SCH (09:00)
[2020-10-11] MEDS: Cholecalciferol (VIT D3) 1,000 unit TAB PO SCH (09:30)
[2020-10-11] MEDS: CMCS:OMEGA-3 FATTY ACID 1000 mg(NF) PO SCH (09:35)
[2020-10-11] MEDS: NS 0.9% 1000 ml BAG 1,000 ML IV SCH ×2 (11:00→19:05)
[2020-10-11] MEDS ORDERED: NS 0.9% 1000 ml BAG 1,000 ML IV ONE (17:51)
[2020-10-12] MEDS ORDERED: Lactated Ringers 1000 ml BAG 1,000 ML IV ONE (00:13)
[2020-10-12] MEDS ORDERED: cefTRIAXone 2 GM ADDV.VIAL 2 GM in NS 0.9% 100 ml BAG 100 ML IV SCH (01:00)
[2020-10-12] MEDS: NS 0.9% 1000 ml BAG 1,000 ML IV SCH (01:51)
[2020-10-12] MEDS ORDERED: Iohexol 300 (CONTRAST) 10 ML SDV IV ONE (04:35)
[2020-10-12 05:51] LABS: ABS Lymphocytes 1.1 10^3/ul (1.0-4.8); ABS Monocytes 0.4 10^3/ul (0-0.8); ABS Neutrophils 5.6 10^3/ul (1.5-7.7); Eosinophil % 0.6 %; Hematocrit 34 % (42-52); Hemoglobin 11.6 g/dL (14.0-18.0); Lymphocyte % 15.4 %; Mean Corpuscular HGB Conc 34 g/dL (31-36); Mean Corpuscular Hemoglobin 29 pg (27-31); Mean Corpuscular Volume 85 fL (80-94); Mean Platelet Volume 9.1 fL (7.4-10.4); Platelet Count 177 10^3/uL (150-450); Red Blood Count 4.01 10^6 /uL (4.18-5.48); Red Cell Distribution Width 14 % (10-15); White Blood Count 7.2 10^3/uL (3.5-10.8)
[2020-10-12 06:13] LABS: BUN/Creatinine Ratio 14.3 (8-20); Calcium 7.9 mg/dL (8.6-10.3); EGFR African American 169.8 (>60); EGFR Non-African American 140.3 (>60); Magnesium 1.7 mg/dL (1.9-2.7); Potassium 3.1 mmol/L (3.5-5.0)
[2020-10-12] MEDS ORDERED: Magnesium Sulfate 2 gm BAG 2 GM/50 ML BAG IVPB ONE (06:46)
[2020-10-12] MEDS ORDERED: Potassium Chlor 20 meq TAB.ER PO ONE (07:05)
[2020-10-12] MEDS ORDERED: Lactated Ringers 1000 ml BAG 500 ML IV SCH (08:00)
[2020-10-12] MEDS: Cholecalciferol (VIT D3) 1,000 unit TAB PO SCH (08:19)
[2020-10-12] MEDS: CMCS:OMEGA-3 FATTY ACID 1000 mg(NF) PO SCH (08:21)
[2020-10-12] MEDS: KCL 10 MEQ/50 ML IVPREMIX 10 MEQ/50 ML BAG IV SCH ×2 (08:25→09:40)
[2020-10-12] MEDS ORDERED: Polyethylene Glycol 3350 17 GM PACKET PO PRN (10:05)
[2020-10-12] MEDS ORDERED: Ondansetron 4 mg VIAL 2 MG/ML 2 ml VIAL IV ONE (11:56)
[2020-10-12] MEDS: Enoxaparin 40 MG/0.4 ML SYR SUBCUT SCH (21:11)
[2020-10-13 04:03] LABS: ABS Eosinophils 0.3 10^3/ul (0-0.6); ABS Lymphocytes 1.3 10^3/ul (1.0-4.8); ABS Monocytes 0.5 10^3/ul (0-0.8); ABS Neutrophils 3.3 10^3/ul (1.5-7.7); Eosinophil % 5.9 %; Hematocrit 32 % (42-52); Lymphocyte % 23.9 %; Mean Corpuscular HGB Conc 35 g/dL (31-36); Mean Corpuscular Hemoglobin 30 pg (27-31); Mean Corpuscular Volume 86 fL (80-94); Mean Platelet Volume 9.6 fL (7.4-10.4); Platelet Count 204 10^3/uL (150-450); Red Blood Count 3.71 10^6 /uL (4.18-5.48); Red Cell Distribution Width 14 % (10-15); White Blood Count 5.6 10^3/uL (3.5-10.8)
[2020-10-13 04:21] LABS: Albumin 2.8 g/dL (3.2-5.2); EGFR African American 143.3 (>60); EGFR Non-African American 118.4 (>60); Globulin 2.8 g/dL (2-4); Potassium 3.4 mmol/L (3.5-5.0); Total Bilirubin 0.4 mg/dL (0.2-1.0); Total Protein 5.6 g/dL (6.4-8.9)
[2020-10-13] MEDS ORDERED: Potassium Chlor 20 meq TAB.ER PO ONE ×2 (07:27→08:36)
[2020-10-13] MEDS: Cholecalciferol (VIT D3) 1,000 unit TAB PO SCH (08:47)
[2020-10-13] MEDS: CMCS:OMEGA-3 FATTY ACID 1000 mg(NF) PO SCH (08:48)
[2020-10-13] MEDS: Enoxaparin 40 MG/0.4 ML SYR SUBCUT SCH (22:19)
[2020-10-14 05:16] LABS: ABS Basophils 0.1 10^3/ul (0-0.2); ABS Eosinophils 0.4 10^3/ul (0-0.6); ABS Lymphocytes 2.3 10^3/ul (1.0-4.8); ABS Monocytes 0.6 10^3/ul (0-0.8); ABS Neutrophils 3.2 10^3/ul (1.5-7.7); Eosinophil % 5.6 %; Hematocrit 35 % (42-52); Hemoglobin 11.6 g/dL (14.0-18.0); Mean Corpuscular HGB Conc 34 g/dL (31-36); Mean Corpuscular Hemoglobin 29 pg (27-31); Mean Corpuscular Volume 85 fL (80-94); Mean Platelet Volume 8.6 fL (7.4-10.4); Nucleated Red Blood Cells % 0.1; Platelet Count 250 10^3/uL (150-450); Red Blood Count 4.06 10^6 /uL (4.18-5.48); Red Cell Distribution Width 14 % (10-15); White Blood Count 6.4 10^3/uL (3.5-10.8)
[2020-10-14 05:36] LABS: BUN/Creatinine Ratio 7.6 (8-20); Calcium 8.6 mg/dL (8.6-10.3); EGFR African American 160.9 (>60); Magnesium 1.8 mg/dL (1.9-2.7); Potassium 3.3 mmol/L (3.5-5.0)
[2020-10-14] MEDS ORDERED: KCL 20 MEQ/100 ML IVPREMIX 20 MEQ/100 ML BAG IV ONE (07:39)
[2020-10-14] MEDS ORDERED: Magnesium Sulfate 2 gm BAG 2 GM/50 ML BAG IVPB ONE (07:39)
[2020-10-14] MEDS: CMCS:OMEGA-3 FATTY ACID 1000 mg(NF) PO SCH (09:58)
[2020-10-14] MEDS: Cholecalciferol (VIT D3) 1,000 unit TAB PO SCH (10:00)
[2020-10-14 18:29] LABS: Urine Appearance Clear; Urine Bilirubin Negative (Negative); Urine Blood 1+ (Negative); Urine Color Straw; Urine Glucose Negative (Negative); Urine Ketones Negative (Negative); Urine Nitrite Negative (Negative); Urine Protein Negative (Negative); Urine Specific Gravity 1.002 (1.002-1.030); Urine Urobilinogen Negative (Negative)
[2020-10-14 18:41] LABS: Urine Bacteria Absent (Absent); Urine Red Blood Cell Trace(0-2/hpf) (Absent); Urine White Blood Cell Trace(0-5/hpf) (Absent)
[2020-10-14] MEDS: Enoxaparin 40 MG/0.4 ML SYR SUBCUT SCH (20:25)
[2020-10-15] MEDS ORDERED: Senna TAB 8.6 mg TAB PO PRN (08:26)
[2020-10-15 08:36] LABS: BUN/Creatinine Ratio 10.9 (8-20); Calcium 8.8 mg/dL (8.6-10.3); EGFR African American 166.8 (>60); EGFR Non-African American 137.8 (>60); Magnesium 2.1 mg/dL (1.9-2.7); Potassium 3.4 mmol/L (3.5-5.0)
[2020-10-15] MEDS: Magnesium Hydroxide LIQ 30 ML UDC PO SCH ×2 (09:52→21:30)
[2020-10-15] MEDS: Cholecalciferol (VIT D3) 1,000 unit TAB PO SCH (09:53)
[2020-10-15] MEDS: CMCS:OMEGA-3 FATTY ACID 1000 mg(NF) PO SCH (09:57)
[2020-10-15] MEDS ORDERED: KCL 20 MEQ/100 ML IVPREMIX 20 MEQ/100 ML BAG IV ONE (19:55)
[2020-10-15] MEDS: Enoxaparin 40 MG/0.4 ML SYR SUBCUT SCH (21:29)
[2020-10-16] MEDS: Magnesium Hydroxide LIQ 30 ML UDC PO SCH (08:37)
[2020-10-16] MEDS: CMCS:OMEGA-3 FATTY ACID 1000 mg(NF) PO SCH (08:37)
[2020-10-16] MEDS: Cholecalciferol (VIT D3) 1,000 unit TAB PO SCH (08:38)
[2020-10-16 16:26] VITALS: BP 137/93
== END 2020-10-16 17:05 | disposition home or self-care (01) | DRG 871 ==
LOC: ED 18:57 → MEDTELE 21:40 → ICU 10-11 18:31 → MEDTELE 10-13 14:25
PROVIDERS: ADMIT Internal Medicine; ATTEND Internal Medicine

== ENCOUNTER 2020-11-19 14:23 | Inpatient (IN) ==
[2020-11-19 15:10] LABS: ABS Basophils 0.1 10^3/ul (0-0.2); ABS Eosinophils 0.1 10^3/ul (0-0.6); ABS Lymphocytes 1.1 10^3/ul (1.0-4.8); ABS Monocytes 1.2 10^3/ul (0-0.8); Eosinophil % 0.7 %; Hematocrit 41 % (42-52); Hemoglobin 13.8 g/dL (14.0-18.0); Lymphocyte % 6.9 %; Mean Corpuscular HGB Conc 34 g/dL (31-36); Mean Corpuscular Hemoglobin 29 pg (27-31); Mean Corpuscular Volume 85 fL (80-94); Mean Platelet Volume 9.7 fL (7.4-10.4); Platelet Count 295 10^3/uL (150-450); Red Blood Count 4.81 10^6 /uL (4.18-5.48); Red Cell Distribution Width 14 % (10-15); White Blood Count 16.5 10^3/uL (3.5-10.8)
[2020-11-19] MEDS ORDERED: metroNIDAZOLE IV 500 MG/100ML 500 MG/100 ML BAG IVPB ONE (15:22)
[2020-11-19] MEDS ORDERED: Ciprofloxacin 400mg IVPREMIX 400 MG/200 ML BAG IVPB ONE (15:22)
[2020-11-19 15:30] LABS: Troponin I 0.02 ng/mL (<0.03)
[2020-11-19 15:35] LABS: Activated Partial Thrombo Time 30.6 seconds (26.0-38.0); INR 1.13 (0.82-1.09)
[2020-11-19] MEDS: NS 0.9% 1000 ml BAG 1,000 ML IV SCH ×3 (15:41→18:34)
[2020-11-19] MEDS ORDERED: Vancomycin 1,500 MG in NS 0.9% 250 ml 250 ML IVPB ONE (16:00)
[2020-11-19 16:06] LABS: Albumin/Globulin Ratio 1.3 (1-3); C Reactive Protein 68.2 mg/L (<8.01); Calcium 9.4 mg/dL (8.6-10.3); EGFR African American 123.5 (>60); EGFR Non-African American 102.1 (>60); Globulin 3.2 g/dL (2-4); Potassium 3.4 mmol/L (3.5-5.0); Total Protein 7.2 g/dL (6.4-8.9)
[2020-11-19] MEDS ORDERED: Metoprolol Tartrate 5 mg VIAL 5 ml VIAL (1 mg/ml) IV PRN (18:47)
[2020-11-19 19:56] LABS: Urine Appearance Cloudy; Urine Bilirubin Negative (Negative); Urine Blood 1+ (Negative); Urine Color Yellow; Urine Glucose Negative (Negative); Urine Ketones Negative (Negative); Urine Nitrite Negative (Negative); Urine Protein Negative (Negative); Urine Specific Gravity 1.013 (1.002-1.030); Urine Urobilinogen Negative (Negative)
[2020-11-19] MEDS ORDERED: Labetalol IV 200 MG in NS 0.9% 250 ml 160 ML IV SCH (20:00)
[2020-11-19] MEDS ORDERED: cefTRIAXone 2 GM ADDV.VIAL 2 GM in NS 0.9% 100 ml BAG 100 ML IV SCH (20:00)
[2020-11-19] MEDS ORDERED: Vancomycin per Pharmacy 1 EA NOTE FOLLOW UP SCH (20:00)
[2020-11-19] MEDS ORDERED: Acyclovir IV 800 MG in NS 0.9% 250 ml 250 ML IVPB SCH (20:00)
[2020-11-19 20:08] LABS: Urine Bacteria 1+ (Absent); Urine Red Blood Cell 2+(6-10/hpf) (Absent); Urine Squamous Epithelial Cell Present (Absent); Urine White Blood Cell 3+(>20/hpf) (Absent)
[2020-11-19] MEDS: Lactated Ringers 1000 ml BAG 1,000 ML IV SCH (20:33)
[2020-11-19] MEDS ORDERED: Ondansetron 4 mg VIAL 2 MG/ML 2 ml VIAL IV PRN (20:50)
[2020-11-19 22:36] LABS: INR 1.28 (0.82-1.09)
[2020-11-20] MEDS ORDERED: Vancomycin 1,750 MG in NS 0.9% 500 ml BAG 500 ML IVPB ONE (06:00)
[2020-11-20] MEDS ORDERED: Vancomycin per Pharmacy 1 EA NOTE FOLLOW UP PRN (06:17)
[2020-11-20 06:22] LABS: ABS Eosinophils 0.1 10^3/ul (0-0.6); ABS Lymphocytes 1.2 10^3/ul (1.0-4.8); ABS Neutrophils 12.3 10^3/ul (1.5-7.7); Eosinophil % 0.4 %; Hematocrit 35 % (42-52); Hemoglobin 11.5 g/dL (14.0-18.0); Mean Corpuscular HGB Conc 33 g/dL (31-36); Mean Corpuscular Hemoglobin 29 pg (27-31); Mean Corpuscular Volume 87 fL (80-94); Mean Platelet Volume 9.6 fL (7.4-10.4); Platelet Count 232 10^3/uL (150-450); Red Cell Distribution Width 14 % (10-15); White Blood Count 14.6 10^3/uL (3.5-10.8)
[2020-11-20 06:38] LABS: Calcium 8.2 mg/dL (8.6-10.3); EGFR Non-African American 94.2 (>60); Potassium 3.5 mmol/L (3.5-5.0)
[2020-11-20] MEDS ORDERED: TERIFLUNOMIDE 14 MG PO SCH (09:00)
[2020-11-20] MEDS ORDERED: Cholecalciferol (VIT D3) 1,000 unit TAB PO SCH (09:00)
[2020-11-20] MEDS: KCL 20 MEQ/100 ML IVPREMIX 20 MEQ/100 ML BAG IV SCH ×2 (09:23→13:06)
[2020-11-20] MEDS: Lactated Ringers 1000 ml BAG 1,000 ML IV SCH (10:54)
[2020-11-20] MEDS ORDERED: Metoprolol Tartrate 5 mg VIAL 5 ml VIAL (1 mg/ml) ONE (11:49)
[2020-11-20] MEDS: Metoprolol Tartrate 5 mg VIAL 5 ml VIAL (1 mg/ml) IV PRN (12:06)
[2020-11-20] MEDS ORDERED: Acetaminophen IV 1 GM/100ML 100 ML IVPB ONE (12:47)
[2020-11-20] MEDS ORDERED: Acetaminophen IV 1 GM/100ML 100 ML ONE (12:48)
[2020-11-20] MEDS: DOXYcycline 100 MG in NS 0.9% 250 ml 250 ML IVPB SCH (12:54)
[2020-11-20] MEDS ORDERED: niCARdipine 0.1MG/ML IVPREMIX 20 MG/200 ML BAG IV SCH (14:00)
[2020-11-20] MEDS ORDERED: Vancomycin 1,250 MG in NS 0.9% 250 ml 250 ML IVPB SCH (14:00)
[2020-11-20] MEDS ORDERED: cefTRIAXone 2 GM ADDV.VIAL 1 GM in NS 0.9% 100 ml BAG 100 ML IV SCH (17:00)
[2020-11-20] MEDS: Heparin 5000 UNITS/ML 1 mL VIAL SUBCUT SCH ×2 (17:16→21:47)
[2020-11-20] MEDS ORDERED: LORazepam 2 mg VIAL 1 ml IV PUSH ONE (17:25)
[2020-11-20] MEDS ORDERED: Lorazepam PYXIS KEY PRN ×2 (17:25→17:45)
[2020-11-20] MEDS ORDERED: LORazepam 2 mg VIAL 1 ml ONE (17:32)
[2020-11-20] MEDS ORDERED: Lorazepam PYXIS KEY ONE ×2 (17:32→21:44)
[2020-11-20] MEDS ORDERED: Hyaluronidase 15 units/mL for Extravasation Intradermal Use INTRADERM ONE (18:00)
[2020-11-20] MEDS: Esmolol 10 MG/ML IVPREMIX 2,500 MG/250 ML BAG IV SCH ×2 (19:27→22:39)
[2020-11-20] MEDS ORDERED: cefTRIAXone 1 gm/50 mL NS BAG 1 GM/50 ML BAG IVPB SCH (21:00)
[2020-11-20] MEDS: LORazepam 2 mg VIAL 1 ml IV PUSH SCH (21:47)
[2020-11-21] MEDS: DOXYcycline 100 MG in NS 0.9% 250 ml 250 ML IVPB SCH ×3 (00:21→23:47)
[2020-11-21] MEDS: LORazepam 2 mg VIAL 1 ml IV PUSH SCH ×2 (02:21→05:35)
[2020-11-21] MEDS: Heparin 5000 UNITS/ML 1 mL VIAL SUBCUT SCH ×3 (05:35→21:42)
[2020-11-21] MEDS: Lactated Ringers 1000 ml BAG 1,000 ML IV SCH ×2 (06:16→15:59)
[2020-11-21 09:41] LABS: ABS Basophils 0.1 10^3/ul (0-0.2); ABS Eosinophils 0.1 10^3/ul (0-0.6); ABS Lymphocytes 1.3 10^3/ul (1.0-4.8); ABS Neutrophils 8.6 10^3/ul (1.5-7.7); Eosinophil % 0.6 %; Hematocrit 35 % (42-52); Hemoglobin 11.9 g/dL (14.0-18.0); Lymphocyte % 12.1 %; Mean Corpuscular HGB Conc 34 g/dL (31-36); Mean Corpuscular Hemoglobin 29 pg (27-31); Mean Corpuscular Volume 86 fL (80-94); Mean Platelet Volume 10.3 fL (7.4-10.4); Platelet Count 213 10^3/uL (150-450); Red Blood Count 4.08 10^6 /uL (4.18-5.48); Red Cell Distribution Width 14 % (10-15); White Blood Count 11.1 10^3/uL (3.5-10.8)
[2020-11-21 09:48] LABS: Calcium 8.6 mg/dL (8.6-10.3); EGFR African American 125.3 (>60); EGFR Non-African American 103.5 (>60); Magnesium 1.5 mg/dL (1.9-2.7); Potassium 3.5 mmol/L (3.5-5.0)
[2020-11-21 12:08] LABS: Myoglobin 183.2 ng/mL (17.4-105.7)
[2020-11-21] MEDS: KCL 20 MEQ/100 ML IVPREMIX 20 MEQ/100 ML BAG IV SCH ×2 (12:27→14:26)
[2020-11-21] MEDS ORDERED: Magnesium Sulfate IV 3 GM in NS 0.9% 100 ml BAG 100 ML IVPB ONE (12:45)
[2020-11-21] MEDS ORDERED: Vancomycin Trough Check NOTE FOLLOW UP ONE (13:30)
[2020-11-21] MEDS: Nystatin TOP POWDER 15 GM BTL TOPICAL SCH ×2 (15:36→21:52)
[2020-11-21] MEDS ORDERED: Lorazepam PYXIS KEY PRN (16:50)
[2020-11-21] MEDS: LORazepam 2 mg VIAL 1 ml IV PUSH PRN ×2 (17:00→20:00)
[2020-11-21] MEDS: Metoprolol Tartrate 5 mg VIAL 5 ml VIAL (1 mg/ml) IV PRN (17:03)
[2020-11-21 17:34] LABS: Body Fluid Source Cerebral Spinal
[2020-11-21 17:56] LABS: CSF Glucose 59 mg/dL (40-70)
[2020-11-21 18:26] LABS: Body Fluid Mono 4 %
[2020-11-21] MEDS ORDERED: Acetaminophen IV 1 GM/100ML 100 ML IVPB SCH (18:30)
[2020-11-21] MEDS: Acyclovir IV 600 MG in NS 0.9% 100 ml BAG 100 ML IVPB SCH (18:33)
[2020-11-21] MEDS ORDERED: Esmolol 10 MG/ML IVPREMIX 2,500 MG/250 ML BAG IV SCH (19:00)
[2020-11-21] MEDS: cefTRIAXone 2 GM ADDV.VIAL 2 GM in NS 0.9% 100 ml BAG 100 ML IV SCH (21:28)
[2020-11-22] MEDS: Lactated Ringers 1000 ml BAG 1,000 ML IV SCH (02:01)
[2020-11-22] MEDS: Acyclovir IV 600 MG in NS 0.9% 100 ml BAG 100 ML IVPB SCH ×2 (02:25→10:12)
[2020-11-22] MEDS: Acetaminophen IV 1 GM/100ML 100 ML IVPB SCH ×3 (02:28→18:38)
[2020-11-22] MEDS: Heparin 5000 UNITS/ML 1 mL VIAL SUBCUT SCH ×3 (06:53→21:08)
[2020-11-22 07:53] LABS: ABS Basophils 0.1 10^3/ul (0-0.2); ABS Eosinophils 0.3 10^3/ul (0-0.6); ABS Lymphocytes 1.7 10^3/ul (1.0-4.8); ABS Monocytes 0.9 10^3/ul (0-0.8); ABS Neutrophils 5.2 10^3/ul (1.5-7.7); Eosinophil % 3.6 %; Hematocrit 33 % (42-52); Hemoglobin 11.2 g/dL (14.0-18.0); Lymphocyte % 20.8 %; Mean Corpuscular HGB Conc 34 g/dL (31-36); Mean Corpuscular Hemoglobin 29 pg (27-31); Mean Corpuscular Volume 85 fL (80-94); Mean Platelet Volume 9.3 fL (7.4-10.4); Platelet Count 235 10^3/uL (150-450); Red Blood Count 3.84 10^6 /uL (4.18-5.48); Red Cell Distribution Width 13 % (10-15); White Blood Count 8.3 10^3/uL (3.5-10.8)
[2020-11-22 08:18] LABS: Calcium 8.4 mg/dL (8.6-10.3); EGFR African American 166.8 (>60); EGFR Non-African American 137.8 (>60); Magnesium 1.7 mg/dL (1.9-2.7); Phosphorus 2.3 mg/dL (2.5-5.0); Potassium 2.9 mmol/L (3.5-5.0)
[2020-11-22] MEDS: cefTRIAXone 2 GM ADDV.VIAL 2 GM in NS 0.9% 100 ml BAG 100 ML IV SCH (08:59)
[2020-11-22] MEDS: Nystatin TOP POWDER 15 GM BTL TOPICAL SCH ×3 (08:59→20:27)
[2020-11-22] MEDS ORDERED: Influenza VAC *QUAD* 2020-21* 0.5 ML SYRINGE IM ONE (09:00)
[2020-11-22] MEDS ORDERED: Potassium Chloride LIQUID 20 MEQ/15 ML LIQUID PO ONE (09:29)
[2020-11-22] MEDS ORDERED: Magnesium Sulfate IV 3 GM in NS 0.9% 100 ml BAG 100 ML IVPB ONE (10:00)
[2020-11-22] MEDS ORDERED: KCL 20 MEQ/100 ML IVPREMIX 20 MEQ/100 ML BAG IV SCH (10:00)
[2020-11-22] MEDS ORDERED: Potassium Phosphate IV 15 MMOLE in NS 0.9% 250 ml 250 ML IVPB ONE (11:00)
[2020-11-22] MEDS: DOXYcycline 100 MG in NS 0.9% 250 ml 250 ML IVPB SCH (12:44)
[2020-11-22] MEDS: Potassium Chloride IV 20 MEQ in Lactated Ringers 1000 ml BAG 1,000 ML IVPB SCH (14:28)
[2020-11-22 20:22] LABS: ALT 39 U/L (7-52); Albumin 3.3 g/dL (3.2-5.2); Alkaline Phosphatase 111 U/L (35-149); Blood Urea Nitrogen 7 mg/dL (6-24); CO2 Carbon Dioxide 22 mmol/L (22-32); Calcium 8.3 mg/dL (8.6-10.3); Chloride 104 mmol/L (101-111); EGFR African American 163.8 (>60); EGFR Non-African American 135.4 (>60); Globulin 3.4 g/dL (2-4); Glucose 106 mg/dL (70-100); Phosphorus 3.1 mg/dL (2.5-5.0); Sodium 134 mmol/L (135-145); Total Protein 6.7 g/dL (6.4-8.9)
[2020-11-22] MEDS: Metoprolol Tartrate 5 mg VIAL 5 ml VIAL (1 mg/ml) IV PRN (20:27)
[2020-11-22 20:57] LABS: Anion Gap 8 mmol/L (2-11)
[2020-11-22 21:33] LABS: Magnesium 1.8 mg/dL (1.9-2.7); Potassium Redraw 3.2 mmol/L (3.5-5.0)
[2020-11-22] MEDS ORDERED: Magnesium Sulfate 2 gm BAG 2 GM/50 ML BAG IVPB ONE (22:48)
[2020-11-22] MEDS: KCL 20 MEQ/100 ML IVPREMIX 20 MEQ/100 ML BAG IV SCH (23:14)
[2020-11-23] MEDS: DOXYcycline 100 MG in NS 0.9% 250 ml 250 ML IVPB SCH ×2 (00:22→11:54)
[2020-11-23] MEDS: Potassium Chloride IV 20 MEQ in Lactated Ringers 1000 ml BAG 1,000 ML IVPB SCH ×2 (00:24→08:43)
[2020-11-23] MEDS: LORazepam 2 mg VIAL 1 ml IV PUSH PRN ×2 (00:28→08:42)
[2020-11-23] MEDS: KCL 20 MEQ/100 ML IVPREMIX 20 MEQ/100 ML BAG IV SCH (01:27)
[2020-11-23 04:35] LABS: Calcium 8.5 mg/dL (8.6-10.3); EGFR African American 186.8 (>60); EGFR Non-African American 154.4 (>60); Magnesium 2.3 mg/dL (1.9-2.7); Potassium 3.5 mmol/L (3.5-5.0)
[2020-11-23] MEDS: Metoprolol Tartrate 5 mg VIAL 5 ml VIAL (1 mg/ml) IV PRN ×2 (05:50→18:49)
[2020-11-23] MEDS: Heparin 5000 UNITS/ML 1 mL VIAL SUBCUT SCH ×3 (05:50→21:09)
[2020-11-23] MEDS ORDERED: Potassium Chlor 20 meq TAB.ER PO ONE ×2 (07:08→16:00)
[2020-11-23] MEDS ORDERED: Potassium Chloride IV 20 MEQ in Lactated Ringers 1000 ml BAG 1,000 ML IVPB SCH (08:30)
[2020-11-23] MEDS: Nystatin TOP POWDER 15 GM BTL TOPICAL SCH ×3 (08:43→21:12)
[2020-11-23] MEDS ORDERED: Influenza VAC *QUAD* 2020-21* 0.5 ML SYRINGE IM ONE (09:00)
[2020-11-23 13:48] LABS: Calcium 8.8 mg/dL (8.6-10.3); EGFR African American 186.8 (>60); EGFR Non-African American 154.4 (>60); Phosphorus 2.3 mg/dL (2.5-5.0); Potassium 3.6 mmol/L (3.5-5.0)
[2020-11-23] MEDS ORDERED: Potassium Chloride LIQUID 20 MEQ/15 ML LIQUID PO ONE (15:51)
[2020-11-24] MEDS: DOXYcycline 100 MG in NS 0.9% 250 ml 250 ML IVPB SCH ×2 (00:16→12:07)
[2020-11-24] MEDS: Metoprolol Tartrate 5 mg VIAL 5 ml VIAL (1 mg/ml) IV PRN ×3 (03:13→16:35)
[2020-11-24 05:17] LABS: ABS Basophils 0.1 10^3/ul (0-0.2); ABS Eosinophils 0.9 10^3/ul (0-0.6); ABS Lymphocytes 2.5 10^3/ul (1.0-4.8); ABS Monocytes 0.7 10^3/ul (0-0.8); ABS Neutrophils 3.6 10^3/ul (1.5-7.7); Eosinophil % 11.1 %; Hematocrit 34 % (42-52); Hemoglobin 11.6 g/dL (14.0-18.0); Lymphocyte % 32.2 %; Mean Corpuscular HGB Conc 34 g/dL (31-36); Mean Corpuscular Hemoglobin 29 pg (27-31); Mean Corpuscular Volume 85 fL (80-94); Mean Platelet Volume 8.6 fL (7.4-10.4); Platelet Count 335 10^3/uL (150-450); Red Blood Count 4.03 10^6 /uL (4.18-5.48); Red Cell Distribution Width 14 % (10-15); White Blood Count 7.7 10^3/uL (3.5-10.8)
[2020-11-24] MEDS: Heparin 5000 UNITS/ML 1 mL VIAL SUBCUT SCH ×3 (05:23→21:24)
[2020-11-24 05:33] LABS: Calcium 9.1 mg/dL (8.6-10.3); EGFR African American 155.5 (>60); EGFR Non-African American 128.5 (>60); Magnesium 1.7 mg/dL (1.9-2.7); Potassium 3.6 mmol/L (3.5-5.0)
[2020-11-24] MEDS: Potassium Chloride IV 20 MEQ in Lactated Ringers 1000 ml BAG 1,000 ML IVPB SCH (06:37)
[2020-11-24] MEDS ORDERED: Potassium Chlor 20 meq TAB.ER PO ONE (07:25)
[2020-11-24] MEDS ORDERED: Magnesium Sulfate IV 3 GM in NS 0.9% 100 ml BAG 100 ML IVPB ONE (07:25)
[2020-11-24 08:38] LABS: TSH Ultra Thyroid Stim Horm 2.22 mcIU/mL (0.34-5.60)
[2020-11-24] MEDS: Nystatin TOP POWDER 15 GM BTL TOPICAL SCH ×3 (08:38→19:46)
[2020-11-24] MEDS ORDERED: Vancomycin 1,000 MG in NS 0.9% 250 ml 250 ML IVPB ONE (13:56)
[2020-11-24] MEDS ORDERED: Vancomycin per Pharmacy 1 EA NOTE FOLLOW UP SCH (14:00)
[2020-11-24] MEDS ORDERED: Vancomycin 1500 MG IV - x ONCE IVPB ONE (15:00)
[2020-11-24 15:19] LABS: Lactate Dehydrogenase, BF 12 U/L
[2020-11-24 21:08] LABS: HSV 1 PCR, CSF Negative (Negative); HSV 2 PCR, CSF Negative (Negative)
[2020-11-24] MEDS: Vancomycin 1000 MG in NS 0.9% 250 ML IVPB SCH (21:24)
[2020-11-24 23:35] LABS: CMV Rapid PCR Negative (Negative)
[2020-11-25] MEDS: Vancomycin 1000 MG in NS 0.9% 250 ML IVPB SCH ×3 (05:38→21:34)
[2020-11-25] MEDS: Heparin 5000 UNITS/ML 1 mL VIAL SUBCUT SCH ×3 (05:38→21:34)
[2020-11-25] MEDS ORDERED: Potassium Chlor 20 meq TAB.ER PO ONE ×2 (07:33→10:17)
[2020-11-25] MEDS ORDERED: Magnesium Sulfate IV 3 GM in NS 0.9% 100 ml BAG 100 ML IVPB ONE (07:33)
[2020-11-25 09:56] LABS: ABS Basophils 0.1 10^3/ul (0-0.2); ABS Eosinophils 0.9 10^3/ul (0-0.6); ABS Lymphocytes 2.1 10^3/ul (1.0-4.8); ABS Monocytes 0.6 10^3/ul (0-0.8); ABS Neutrophils 5.3 10^3/ul (1.5-7.7); Eosinophil % 9.6 %; Hematocrit 34 % (42-52); Hemoglobin 11.6 g/dL (14.0-18.0); Lymphocyte % 23.8 %; Mean Corpuscular HGB Conc 34 g/dL (31-36); Mean Corpuscular Hemoglobin 29 pg (27-31); Mean Corpuscular Volume 85 fL (80-94); Mean Platelet Volume 8.2 fL (7.4-10.4); Platelet Count 384 10^3/uL (150-450); Red Blood Count 3.95 10^6 /uL (4.18-5.48); Red Cell Distribution Width 14 % (10-15)
[2020-11-25 10:14] LABS: Calcium 9.2 mg/dL (8.6-10.3); EGFR African American 160.9 (>60); Magnesium 1.9 mg/dL (1.9-2.7); Potassium 3.9 mmol/L (3.5-5.0)
[2020-11-25] MEDS ORDERED: Magnesium Sulfate IV 1GM/100ML 1 GM/100 ML BAG IV ONE (10:17)
[2020-11-25] MEDS: Nystatin TOP POWDER 15 GM BTL TOPICAL SCH ×3 (11:17→21:34)
[2020-11-25] MEDS ORDERED: Vancomycin Trough Check NOTE FOLLOW UP ONE (14:30)
[2020-11-25 14:44] LABS: EGFR African American 143.3 (>60); EGFR Non-African American 118.4 (>60)
[2020-11-25] MEDS: Metoprolol Tartrate 5 mg VIAL 5 ml VIAL (1 mg/ml) IV PRN (18:15)
[2020-11-25] MEDS: Saline FLUSH-CENTRAL 10 ML SYRINGE CENT\\PICC SCH (18:15)
[2020-11-25 20:48] LABS: Urine Appearance Cloudy; Urine Bilirubin Negative (Negative); Urine Blood Negative (Negative); Urine Color Yellow; Urine Glucose Negative (Negative); Urine Ketones Negative (Negative); Urine Nitrite Negative (Negative); Urine Protein Negative (Negative); Urine Specific Gravity 1.014 (1.002-1.030); Urine Urobilinogen Negative (Negative)
[2020-11-26] MEDS: Saline FLUSH-CENTRAL 10 ML SYRINGE CENT\\PICC SCH ×2 (05:36→16:03)
[2020-11-26] MEDS: Heparin 5000 UNITS/ML 1 mL VIAL SUBCUT SCH ×3 (05:36→21:59)
[2020-11-26 06:11] LABS: Calcium 9.2 mg/dL (8.6-10.3); EGFR African American 150.4 (>60); EGFR Non-African American 124.3 (>60); Magnesium 1.9 mg/dL (1.9-2.7); Phosphorus 2.9 mg/dL (2.5-5.0); Potassium 3.9 mmol/L (3.5-5.0)
[2020-11-26] MEDS: Vancomycin 1000 MG in NS 0.9% 250 ML IVPB SCH ×3 (06:23→22:44)
[2020-11-26] MEDS ORDERED: Potassium Chlor 20 meq TAB.ER PO ONE (08:00)
[2020-11-26] MEDS ORDERED: Magnesium Sulfate 2 gm BAG 2 GM/50 ML BAG IVPB ONE (08:01)
[2020-11-26] MEDS: Nystatin TOP POWDER 15 GM BTL TOPICAL SCH ×3 (09:29→21:59)
[2020-11-26] MEDS: Metoprolol Tartrate 5 mg VIAL 5 ml VIAL (1 mg/ml) IV PRN (15:49)
[2020-11-27] MEDS: Vancomycin 1000 MG in NS 0.9% 250 ML IVPB SCH ×2 (05:32→17:02)
[2020-11-27] MEDS: Heparin 5000 UNITS/ML 1 mL VIAL SUBCUT SCH (05:33)
[2020-11-27] MEDS: Saline FLUSH-CENTRAL 10 ML SYRINGE CENT\\PICC SCH ×2 (05:33→16:32)
[2020-11-27] MEDS: Nystatin TOP POWDER 15 GM BTL TOPICAL SCH ×3 (09:05→21:45)
[2020-11-27 10:49] LABS: Albumin 2710 mg/dL; CSF Albumin 35.7 mg/dL (<=27.0); CSF IGG 15.1 mg/dL (<=8.1); CSF Immunoglobulin G Synthesis 51.71 mg/24 h (<=12); Immunoglobulin G 786 mg/dL (767 - 1590)
[2020-11-27] MEDS: Enoxaparin 40 MG/0.4 ML SYR SUBCUT SCH (12:24)
[2020-11-28 08:25] LABS: EGFR Non-African American 116.6 (>60)
[2020-11-28] MEDS: Enoxaparin 40 MG/0.4 ML SYR SUBCUT SCH (09:29)
[2020-11-28] MEDS: Nystatin TOP POWDER 15 GM BTL TOPICAL SCH ×3 (09:37→21:25)
[2020-11-29] MEDS: Enoxaparin 40 MG/0.4 ML SYR SUBCUT SCH (10:08)
[2020-11-29] MEDS: Nystatin TOP POWDER 15 GM BTL TOPICAL SCH ×3 (10:08→20:10)
[2020-11-30] MEDS: Enoxaparin 40 MG/0.4 ML SYR SUBCUT SCH (08:32)
[2020-11-30] MEDS: Nystatin TOP POWDER 15 GM BTL TOPICAL SCH ×3 (08:42→23:22)
[2020-12-01] MEDS: Enoxaparin 40 MG/0.4 ML SYR SUBCUT SCH (08:19)
[2020-12-01] MEDS: Nystatin TOP POWDER 15 GM BTL TOPICAL SCH ×2 (08:20→13:09)
[2020-12-01 16:19] VITALS: BP 115/78
== END 2020-12-01 19:57 | disposition home or self-care (01) ==
LOC: ED 14:23 → ICU 19:21 → MEDTELE 11-26 16:51
PROVIDERS: ADMIT Internal Medicine Interventional Cardiology; ATTEND Internal Medicine

== ENCOUNTER 2020-12-18 22:08 | Inpatient (IN) ==
[2020-12-18] MEDS ORDERED: NS 0.9% 1000 ml BAG 1,000 ML IV.FLUID IV ONE (22:11)
[2020-12-18 22:29] LABS: ABS Basophils 0.1 10^3/ul (0-0.2); ABS Eosinophils 0.2 10^3/ul (0-0.6); ABS Lymphocytes 0.4 10^3/ul (1.0-4.8); ABS Monocytes 0.8 10^3/ul (0-0.8); Eosinophil % 1.4 %; Hematocrit 44 % (42-52); Hemoglobin 14.6 g/dL (14.0-18.0); Lymphocyte % 2.4 %; Mean Corpuscular HGB Conc 34 g/dL (31-36); Mean Corpuscular Hemoglobin 29 pg (27-31); Mean Corpuscular Volume 86 fL (80-94); Mean Platelet Volume 9.3 fL (7.4-10.4); Platelet Count 344 10^3/uL (150-450); Red Blood Count 5.04 10^6 /uL (4.18-5.48); Red Cell Distribution Width 14 % (10-15); White Blood Count 17.6 10^3/uL (3.5-10.8)
[2020-12-18 22:39] LABS: Activated Partial Thrombo Time 29.3 seconds (26.0-38.0); INR 1.26 (0.82-1.09)
[2020-12-18 22:50] LABS: ALT 73 U/L (7-52); AST 48 U/L (13-39); Alkaline Phosphatase 197 U/L (35-149); Anion Gap 13 mmol/L (2-11); Blood Urea Nitrogen 14 mg/dL (6-24); C Reactive Protein 169.47 mg/L (<8.01); CO2 Carbon Dioxide 19 mmol/L (22-32); Calcium 9.6 mg/dL (8.6-10.3); Chloride 103 mmol/L (101-111); EGFR African American 111.1 (>60); EGFR Non-African American 91.8 (>60); Globulin 3.9 g/dL (2-4); Glucose 128 mg/dL (70-100); Potassium 3.9 mmol/L (3.5-5.0); Sodium 135 mmol/L (135-145); Total Protein 7.9 g/dL (6.4-8.9)
[2020-12-18 22:57] LABS: Troponin I 0.03 ng/mL (<0.03)
[2020-12-18] MEDS ORDERED: Vancomycin 1,000 MG in NS 0.9% 250 ml 250 ML IVPB ONE (23:41)
[2020-12-18] MEDS ORDERED: cefTRIAXone 1 gm/50 mL NS BAG 1 GM/50 ML BAG IV ONE (23:42)
[2020-12-18] MEDS ORDERED: Vancomycin per Pharmacy 1 EA NOTE FOLLOW UP SCH (23:45)
[2020-12-19] MEDS ORDERED: Vancomycin 1500 MG IV - x ONCE IVPB ONE
[2020-12-19 00:36] LABS: Urine Appearance Cloudy; Urine Bilirubin Negative (Negative); Urine Blood 2+ (Negative); Urine Color Yellow; Urine Glucose Negative (Negative); Urine Ketones 2+ (Negative); Urine Nitrite Negative (Negative); Urine Protein 1+(30 mg/dL) (Negative); Urine Specific Gravity 1.013 (1.002-1.030); Urine Urobilinogen Negative (Negative)
[2020-12-19 00:44] LABS: Urine Bacteria 1+ (Absent); Urine Red Blood Cell 3+(>10/hpf) (Absent); Urine Squamous Epithelial Cell Present (Absent); Urine White Blood Cell 3+(>20/hpf) (Absent)
[2020-12-19] MEDS ORDERED: NS 0.9% 250 ml 250 ML ONE (01:13)
[2020-12-19] MEDS ORDERED: NS 0.9% 1000 ml BAG 1,000 ML IV SCH ×2 (02:45→07:00)
[2020-12-19] MEDS: metroNIDAZOLE IV 500 MG/100ML 500 MG/100 ML BAG IVPB SCH ×3 (04:30→19:43)
[2020-12-19] MEDS ORDERED: NS 0.9% 500 ml BAG 500 ML IV ONE (06:55)
[2020-12-19 07:31] LABS: Hematocrit 34 % (42-52); Hemoglobin 11.5 g/dL (14.0-18.0); Mean Corpuscular HGB Conc 34 g/dL (31-36); Mean Corpuscular Hemoglobin 29 pg (27-31); Mean Corpuscular Volume 87 fL (80-94); Mean Platelet Volume 9.8 fL (7.4-10.4); Platelet Count 232 10^3/uL (150-450); Red Blood Count 3.95 10^6 /uL (4.18-5.48); Red Cell Distribution Width 14 % (10-15); White Blood Count 11.2 10^3/uL (3.5-10.8)
[2020-12-19 07:41] LABS: Albumin 2.9 g/dL (3.2-5.2); Calcium 7.9 mg/dL (8.6-10.3); EGFR African American 132.7 (>60); EGFR Non-African American 109.7 (>60); Globulin 2.9 g/dL (2-4); Potassium 3.7 mmol/L (3.5-5.0); Total Protein 5.8 g/dL (6.4-8.9)
[2020-12-19] MEDS ORDERED: Cefepime ADVAN 1 GM in NS 0.9% 50 ML 50 ML IVPB SCH (08:00)
[2020-12-19] MEDS ORDERED: Ondansetron 4 mg VIAL 2 MG/ML 2 ml VIAL IV ONE (08:02)
[2020-12-19] MEDS: Vancomycin 1,000 MG in NS 0.9% 250 ml 250 ML IVPB SCH ×2 (08:29→15:20)
[2020-12-19 08:55] LABS: ABS Basophils 0.1 10^3/ul (0-0.2); ABS Eosinophils 0.2 10^3/ul (0-0.6); ABS Lymphocytes 0.5 10^3/ul (1.0-4.8); ABS Monocytes 0.3 10^3/ul (0-0.8); ABS Neutrophils 10.2 10^3/ul (1.5-7.7); Eosinophil % 1.9 %; Lymphocyte % 4.1 %
[2020-12-19] MEDS ORDERED: metroNIDAZOLE IV 500 MG/100ML 500 MG/100 ML BAG IVPB SCH (09:00)
[2020-12-19] MEDS ORDERED: Vancomycin per Pharmacy 1 EA NOTE FOLLOW UP SCH (09:00)
[2020-12-19] MEDS: Enoxaparin 40 MG/0.4 ML SYR SUBCUT SCH (09:33)
[2020-12-19] MEDS: Cefepime 1 GM in Dextrose 1 GM/50 ML BAG IV SCH ×2 (09:33→21:42)
[2020-12-19] MEDS: CMCS: OMEGA-3 FATTY ACID 1000 mg(NF) PO SCH (10:18)
[2020-12-19] MEDS: Cholecalciferol (VIT D3) 1,000 unit TAB PO SCH (10:18)
[2020-12-19] MEDS ORDERED: Iohexol 300 (CONTRAST) 10 ML SDV IV SCH (12:38)
[2020-12-19] MEDS ORDERED: NS 0.9% 1000 ml BAG 1,000 ML IV ONE (19:07)
[2020-12-19] MEDS ORDERED: Metoprolol Tartrate 5 mg VIAL 5 ml VIAL (1 mg/ml) IV ONE (19:08)
[2020-12-19] MEDS: NS 0.9% 1000 ml BAG 1,000 ML IV SCH (22:05)
[2020-12-20] MEDS: Vancomycin 1,000 MG in NS 0.9% 250 ml 250 ML IVPB SCH ×3 (00:31→17:14)
[2020-12-20] MEDS ORDERED: cefTRIAXone 1 gm/50 mL NS BAG 1 GM/50 ML BAG IVPB SCH (01:00)
[2020-12-20] MEDS: metroNIDAZOLE IV 500 MG/100ML 500 MG/100 ML BAG IVPB SCH ×3 (03:14→21:08)
[2020-12-20] MEDS: NS 0.9% 1000 ml BAG 1,000 ML IV SCH ×2 (04:21→17:14)
[2020-12-20] MEDS ORDERED: Vancomycin Trough Check NOTE FOLLOW UP ONE (07:30)
[2020-12-20 08:08] LABS: Calcium 8.4 mg/dL (8.6-10.3); EGFR African American 150.4 (>60); EGFR Non-African American 124.3 (>60); Magnesium 1.6 mg/dL (1.9-2.7); Potassium 3.3 mmol/L (3.5-5.0)
[2020-12-20 08:12] LABS: Vancomycin Trough 12.4 mcg/mL
[2020-12-20 08:21] LABS: TSH Ultra Thyroid Stim Horm 2.58 mcIU/mL (0.34-5.60)
[2020-12-20 08:28] LABS: Hematocrit 33 % (42-52); Hemoglobin 11.1 g/dL (14.0-18.0); Mean Corpuscular HGB Conc 34 g/dL (31-36); Mean Corpuscular Hemoglobin 29 pg (27-31); Mean Corpuscular Volume 87 fL (80-94); Platelet Count Platelets clumped. 10^3/uL (150-450); Red Blood Count 3.79 10^6 /uL (4.18-5.48); Red Cell Distribution Width 14 % (10-15); White Blood Count 17.8 10^3/uL (3.5-10.8)
[2020-12-20] MEDS: Cholecalciferol (VIT D3) 1,000 unit TAB PO SCH (09:46)
[2020-12-20] MEDS: CMCS: OMEGA-3 FATTY ACID 1000 mg(NF) PO SCH (09:47)
[2020-12-20] MEDS: Enoxaparin 40 MG/0.4 ML SYR SUBCUT SCH (09:47)
[2020-12-20] MEDS: Cefepime 1 GM in Dextrose 1 GM/50 ML BAG IV SCH ×2 (11:15→23:00)
[2020-12-21] MEDS: Vancomycin 1,000 MG in NS 0.9% 250 ml 250 ML IVPB SCH ×3 (00:35→16:10)
[2020-12-21] MEDS: metroNIDAZOLE IV 500 MG/100ML 500 MG/100 ML BAG IVPB SCH ×2 (04:55→12:18)
[2020-12-21 07:33] LABS: ABS Basophils 0.1 10^3/ul (0-0.2); ABS Lymphocytes 1.2 10^3/ul (1.0-4.8); ABS Monocytes 0.7 10^3/ul (0-0.8); ABS Neutrophils 7.9 10^3/ul (1.5-7.7); Hematocrit 32 % (42-52); Lymphocyte % 10.6 %; Mean Corpuscular HGB Conc 35 g/dL (31-36); Mean Corpuscular Hemoglobin 29 pg (27-31); Mean Corpuscular Volume 85 fL (80-94); Platelet Count 287 10^3/uL (150-450); Red Blood Count 3.75 10^6 /uL (4.18-5.48); Red Cell Distribution Width 15 % (10-15); White Blood Count 10.9 10^3/uL (3.5-10.8)
[2020-12-21 08:03] LABS: Albumin 2.8 g/dL (3.2-5.2); Albumin/Globulin Ratio 0.9 (1-3); Calcium 8.6 mg/dL (8.6-10.3); Direct Bilirubin 0.2 mg/dL (0.03-0.18); EGFR African American 163.8 (>60); EGFR Non-African American 135.4 (>60); Indirect Bilirubin 0.2 mg/dL (0.3-1.0); Magnesium 1.7 mg/dL (1.9-2.7); Phosphorus 2.6 mg/dL (2.5-5.0); Total Bilirubin 0.4 mg/dL (0.2-1.0); Total Protein 5.8 g/dL (6.4-8.9)
[2020-12-21 08:37] LABS: C Reactive Protein 130.76 mg/L (<8.01)
[2020-12-21] MEDS: NS 0.9% 1000 ml BAG 1,000 ML IV SCH ×2 (08:52→22:22)
[2020-12-21] MEDS: Cefepime 1 GM in Dextrose 1 GM/50 ML BAG IV SCH (08:53)
[2020-12-21] MEDS: Cholecalciferol (VIT D3) 1,000 unit TAB PO SCH (09:01)
[2020-12-21] MEDS: CMCS: OMEGA-3 FATTY ACID 1000 mg(NF) PO SCH (09:01)
[2020-12-21] MEDS: Enoxaparin 40 MG/0.4 ML SYR SUBCUT SCH (09:03)
[2020-12-21] MEDS ORDERED: Magnesium Sulfate 2 gm BAG 2 GM/50 ML BAG IVPB ONE (12:59)
[2020-12-21] MEDS: Potassium Chlor 20 meq TAB.ER PO SCH ×2 (14:17→16:10)
[2020-12-22] MEDS: Vancomycin 1,000 MG in NS 0.9% 250 ml 250 ML IVPB SCH ×3 (00:14→18:11)
[2020-12-22] MEDS ORDERED: Vancomycin Trough Check NOTE FOLLOW UP ONE (07:30)
[2020-12-22 09:54] LABS: Albumin 3.1 g/dL (3.2-5.2); Calcium 8.8 mg/dL (8.6-10.3); EGFR African American 190.6 (>60); EGFR Non-African American 157.5 (>60); Globulin 3.2 g/dL (2-4); Magnesium 1.9 mg/dL (1.9-2.7); Potassium 3.1 mmol/L (3.5-5.0); Total Bilirubin 0.4 mg/dL (0.2-1.0); Total Protein 6.3 g/dL (6.4-8.9)
[2020-12-22] MEDS: Cholecalciferol (VIT D3) 1,000 unit TAB PO SCH (11:14)
[2020-12-22] MEDS: Enoxaparin 40 MG/0.4 ML SYR SUBCUT SCH (11:15)
[2020-12-22] MEDS: CMCS: OMEGA-3 FATTY ACID 1000 mg(NF) PO SCH (11:36)
[2020-12-22] MEDS ORDERED: Morphine 2 MG/ML SYRINGE IV ONE (20:30)
[2020-12-22] MEDS: Potassium Chlor 20 meq TAB.ER PO SCH (22:23)
[2020-12-23] MEDS: Vancomycin 1,000 MG in NS 0.9% 250 ml 250 ML IVPB SCH ×4 (01:09→21:57)
[2020-12-23 07:22] LABS: Calcium 8.9 mg/dL (8.6-10.3); Potassium 3.3 mmol/L (3.5-5.0)
[2020-12-23] MEDS: Potassium Chlor 20 meq TAB.ER PO SCH (07:35)
[2020-12-23] MEDS: Cholecalciferol (VIT D3) 1,000 unit TAB PO SCH (11:18)
[2020-12-23] MEDS: Enoxaparin 40 MG/0.4 ML SYR SUBCUT SCH (11:19)
[2020-12-23] MEDS: CMCS: OMEGA-3 FATTY ACID 1000 mg(NF) PO SCH (11:20)
[2020-12-23] MEDS ORDERED: Potassium Chlor 10 meq TAB PO ONE (18:40)
[2020-12-24 06:37] LABS: Hematocrit 34 % (42-52); Hemoglobin 11.5 g/dL (14.0-18.0); Mean Corpuscular HGB Conc 34 g/dL (31-36); Mean Corpuscular Hemoglobin 29 pg (27-31); Mean Corpuscular Volume 86 fL (80-94); Mean Platelet Volume 7.9 fL (7.4-10.4); Platelet Count 462 10^3/uL (150-450); Red Blood Count 3.96 10^6 /uL (4.18-5.48); Red Cell Distribution Width 15 % (10-15); White Blood Count 14.1 10^3/uL (3.5-10.8)
[2020-12-24] MEDS ORDERED: NS 0.9% 500 ml BAG 500 ML IV ONE (06:53)
[2020-12-24 06:57] LABS: Albumin 3.1 g/dL (3.2-5.2); Albumin/Globulin Ratio 0.9 (1-3); Calcium 9.1 mg/dL (8.6-10.3); EGFR African American 160.9 (>60); Globulin 3.3 g/dL (2-4); Magnesium 1.9 mg/dL (1.9-2.7); Total Bilirubin 0.3 mg/dL (0.2-1.0); Total Protein 6.4 g/dL (6.4-8.9)
[2020-12-24] MEDS: Vancomycin 1,000 MG in NS 0.9% 250 ml 250 ML IVPB SCH ×2 (07:22→15:17)
[2020-12-24 07:52] LABS: C Reactive Protein 79.06 mg/L (<8.01)
[2020-12-24] MEDS: Cholecalciferol (VIT D3) 1,000 unit TAB PO SCH (08:17)
[2020-12-24] MEDS: CMCS: OMEGA-3 FATTY ACID 1000 mg(NF) PO SCH (08:19)
[2020-12-24] MEDS: Enoxaparin 40 MG/0.4 ML SYR SUBCUT SCH (08:19)
[2020-12-24 10:04] LABS: Hepatitis B Surface Antigen Nonreactive (Nonreactive)
[2020-12-24 10:09] LABS: Hepatitis A Ab IgM Negative (Negative)
[2020-12-24 10:10] LABS: Hepatitis B Core IgM Nonreactive (Nonreactive)
[2020-12-24 10:22] LABS: Hepatitis C Antibody Negative (Negative)
[2020-12-24] MEDS ORDERED: Vancomycin Trough Check NOTE FOLLOW UP ONE (13:30)
[2020-12-24] MEDS: Vancomycin 1,250 MG in NS 0.9% 250 ml 250 ML IVPB SCH (23:38)
[2020-12-25] MEDS ORDERED: NS 0.9% 1000 ml BAG 1,000 ML IV SCH (00:01)
[2020-12-25] MEDS: Vancomycin 1,250 MG in NS 0.9% 250 ml 250 ML IVPB SCH ×3 (06:05→21:29)
[2020-12-25] MEDS: Cholecalciferol (VIT D3) 1,000 unit TAB PO SCH (09:12)
[2020-12-25] MEDS: CMCS: OMEGA-3 FATTY ACID 1000 mg(NF) PO SCH (09:13)
[2020-12-25] MEDS ORDERED: Propofol 10 MG/ML 20 ML BTL ONE (10:35)
[2020-12-25] MEDS ORDERED: Lidocaine 2% PF 5 ML VIAL ONE (10:35)
[2020-12-25] MEDS ORDERED: Ondansetron 4 mg VIAL 2 MG/ML 2 ml VIAL ONE ×2 (10:35→13:03)
[2020-12-25] MEDS ORDERED: fentaNYL 250 mcg/5 ml 50 MCG/ML 5 ml VIAL (250 MCG) ONE (10:36)
[2020-12-25] MEDS ORDERED: Rocuronium 50 mg VIAL 10 mg/ml 5 ml VIAL (50 mg) ONE (11:53)
[2020-12-25] MEDS ORDERED: Bupivacaine 0.25% EPI 200,000 30 ML SDV ONE (12:01)
[2020-12-25] MEDS ORDERED: Naloxone 0.4 mg VIAL 0.4 mg/ml 1 ml VIAL IV PRN (12:46)
[2020-12-25] MEDS ORDERED: Ondansetron 4 mg VIAL 2 MG/ML 2 ml VIAL IV PRN (12:46)
[2020-12-25] MEDS ORDERED: Metoclopramide 5 MG/ML VIAL (10 mg) IV PRN (12:46)
[2020-12-25] MEDS ORDERED: fentaNYL 100 mcg/2 ml 50 MCG/ML VIAL IV PRN (12:46)
[2020-12-25] MEDS ORDERED: HYDROcodone/ACETAMIN 5/325 mg TAB PO PRN (12:46)
[2020-12-25] MEDS ORDERED: fentaNYL 100 mcg/2 ml 50 MCG/ML VIAL ONE (13:03)
[2020-12-25] MEDS ORDERED: Metoprolol Tartrate 5 mg VIAL 5 ml VIAL (1 mg/ml) IV ONE (19:13)
[2020-12-25] MEDS: NS 0.9% 1000 ml BAG 1,000 ML IV SCH (21:20)
[2020-12-26] MEDS ORDERED: Vancomycin Trough Check NOTE FOLLOW UP ONE (05:30)
[2020-12-26 05:58] LABS: EGFR African American 130.8 (>60); EGFR Non-African American 108.1 (>60)
[2020-12-26 06:08] LABS: Vancomycin Trough 24.9 mcg/mL
[2020-12-26] MEDS: Vancomycin 1,250 MG in NS 0.9% 250 ml 250 ML IVPB SCH ×2 (06:14→06:16)
[2020-12-26] MEDS: Cholecalciferol (VIT D3) 1,000 unit TAB PO SCH (10:41)
[2020-12-26] MEDS: CMCS: OMEGA-3 FATTY ACID 1000 mg(NF) PO SCH (10:42)
[2020-12-26] MEDS: NS 0.9% 1000 ml BAG 1,000 ML IV SCH (11:32)
[2020-12-26] MEDS: Enoxaparin 40 MG/0.4 ML SYR SUBCUT SCH (14:56)
[2020-12-26] MEDS ORDERED: Vancomycin 1000 MG in NS 0.9% 250 ML IVPB SCH (16:00)
[2020-12-26] MEDS: Vancomycin 1000 MG in NS 0.9% 250 ML IVPB SCH (22:31)
[2020-12-27] MEDS: Vancomycin 1000 MG in NS 0.9% 250 ML IVPB SCH ×3 (05:54→22:05)
[2020-12-27 07:35] LABS: Albumin 3.3 g/dL (3.2-5.2); Albumin/Globulin Ratio 0.9 (1-3); Calcium 9.2 mg/dL (8.6-10.3); EGFR Non-African American 116.6 (>60); Globulin 3.6 g/dL (2-4); Potassium 4.1 mmol/L (3.5-5.0); Total Bilirubin 0.4 mg/dL (0.2-1.0); Total Protein 6.9 g/dL (6.4-8.9)
[2020-12-27] MEDS: Cholecalciferol (VIT D3) 1,000 unit TAB PO SCH (11:04)
[2020-12-27] MEDS: CMCS: OMEGA-3 FATTY ACID 1000 mg(NF) PO SCH (11:06)
[2020-12-27] MEDS: Enoxaparin 40 MG/0.4 ML SYR SUBCUT SCH (15:58)
[2020-12-27] MEDS ORDERED: Vancomycin Trough Check NOTE FOLLOW UP ONE (21:30)
[2020-12-28 05:03] LABS: Hematocrit 31 % (42-52); Hemoglobin 10.3 g/dL (14.0-18.0); Mean Corpuscular HGB Conc 34 g/dL (31-36); Mean Corpuscular Hemoglobin 29 pg (27-31); Mean Corpuscular Volume 85 fL (80-94); Mean Platelet Volume 7.4 fL (7.4-10.4); Platelet Count 553 10^3/uL (150-450); Red Blood Count 3.59 10^6 /uL (4.18-5.48); Red Cell Distribution Width 15 % (10-15); White Blood Count 11.6 10^3/uL (3.5-10.8)
[2020-12-28 05:26] LABS: Albumin 3.1 g/dL (3.2-5.2); Albumin/Globulin Ratio 0.9 (1-3); EGFR African American 130.8 (>60); EGFR Non-African American 108.1 (>60); Globulin 3.3 g/dL (2-4); Potassium 3.9 mmol/L (3.5-5.0); Total Bilirubin 0.4 mg/dL (0.2-1.0); Total Protein 6.4 g/dL (6.4-8.9)
[2020-12-28] MEDS: Vancomycin 1,250 MG in NS 0.9% 250 ml 250 ML IVPB SCH ×2 (05:55→14:25)
[2020-12-28] MEDS: Cholecalciferol (VIT D3) 1,000 unit TAB PO SCH (10:02)
[2020-12-28] MEDS: CMCS: OMEGA-3 FATTY ACID 1000 mg(NF) PO SCH (10:03)
[2020-12-28] MEDS: Enoxaparin 40 MG/0.4 ML SYR SUBCUT SCH (14:50)
[2020-12-28] MEDS ORDERED: cefTRIAXone 1 gm/50 mL NS BAG 1 GM/50 ML BAG IVPB SCH (18:00)
[2020-12-28 18:27] LABS: C Reactive Protein 106.95 mg/L (<8.01)
[2020-12-28] MEDS ORDERED: NS 0.9% 1000 ml BAG 1,000 ML IV ONE ×2 (21:08)
[2020-12-29] MEDS: Vancomycin 1,250 MG in NS 0.9% 250 ml 250 ML IVPB SCH ×3 (00:05→15:20)
[2020-12-29] MEDS ORDERED: Vancomycin Trough Check NOTE FOLLOW UP ONE ×2 (05:30→13:30)
[2020-12-29 05:47] LABS: ABS Basophils 0.1 10^3/ul (0-0.2); ABS Eosinophils 0.5 10^3/ul (0-0.6); ABS Lymphocytes 1.4 10^3/ul (1.0-4.8); ABS Monocytes 0.8 10^3/ul (0-0.8); ABS Neutrophils 7.6 10^3/ul (1.5-7.7); Eosinophil % 4.4 %; Hematocrit 30 % (42-52); Hemoglobin 9.9 g/dL (14.0-18.0); Lymphocyte % 13.3 %; Mean Corpuscular HGB Conc 33 g/dL (31-36); Mean Corpuscular Hemoglobin 29 pg (27-31); Mean Corpuscular Volume 88 fL (80-94); Mean Platelet Volume 7.7 fL (7.4-10.4); Platelet Count 510 10^3/uL (150-450); Red Blood Count 3.39 10^6 /uL (4.18-5.48); Red Cell Distribution Width 15 % (10-15); White Blood Count 10.3 10^3/uL (3.5-10.8)
[2020-12-29 05:58] LABS: EGFR African American 150.4 (>60); EGFR Non-African American 124.3 (>60)
[2020-12-29 06:03] LABS: Vancomycin Trough 19.3 mcg/mL
[2020-12-29 06:06] LABS: Albumin 2.8 g/dL (3.2-5.2); Albumin/Globulin Ratio 0.9 (1-3); Calcium 8.6 mg/dL (8.6-10.3); Direct Bilirubin 0.1 mg/dL (0.03-0.18); EGFR African American 145.6 (>60); EGFR Non-African American 120.3 (>60); Globulin 3.2 g/dL (2-4); Indirect Bilirubin 0.2 mg/dL (0.3-1.0); Magnesium 1.8 mg/dL (1.9-2.7); Potassium 3.9 mmol/L (3.5-5.0); Total Bilirubin 0.3 mg/dL (0.2-1.0)
[2020-12-29] MEDS: Cholecalciferol (VIT D3) 1,000 unit TAB PO SCH (08:39)
[2020-12-29] MEDS: CMCS: OMEGA-3 FATTY ACID 1000 mg(NF) PO SCH (08:40)
[2020-12-29] MEDS: Polyethylene Glycol 3350 17 GM PACKET PO SCH ×2 (10:34→21:03)
[2020-12-29] MEDS: Enoxaparin 40 MG/0.4 ML SYR SUBCUT SCH (15:20)
[2020-12-30] MEDS: Vancomycin 1000 MG in NS 0.9% 250 ML IVPB SCH ×3 (05:14→21:20)
[2020-12-30 08:19] LABS: Albumin/Globulin Ratio 0.8 (1-3); Calcium 9.1 mg/dL (8.6-10.3); Direct Bilirubin 0.1 mg/dL (0.03-0.18); EGFR Non-African American 116.6 (>60); Globulin 3.6 g/dL (2-4); Indirect Bilirubin 0.2 mg/dL (0.3-1.0); Potassium 4.1 mmol/L (3.5-5.0); Total Bilirubin 0.3 mg/dL (0.2-1.0); Total Protein 6.6 g/dL (6.4-8.9)
[2020-12-30] MEDS: Polyethylene Glycol 3350 17 GM PACKET PO SCH ×2 (11:37→20:43)
[2020-12-30] MEDS: Cholecalciferol (VIT D3) 1,000 unit TAB PO SCH (11:38)
[2020-12-30] MEDS: CMCS: OMEGA-3 FATTY ACID 1000 mg(NF) PO SCH (11:42)
[2020-12-30] MEDS: Enoxaparin 40 MG/0.4 ML SYR SUBCUT SCH (15:01)
[2020-12-30] MEDS ORDERED: NS 0.9% 1000 ml BAG 1,000 ML IV ONE (19:48)
[2020-12-31 06:40] LABS: ABS Basophils 0.1 10^3/ul (0-0.2); ABS Eosinophils 0.6 10^3/ul (0-0.6); ABS Lymphocytes 1.7 10^3/ul (1.0-4.8); ABS Monocytes 0.6 10^3/ul (0-0.8); ABS Neutrophils 7.1 10^3/ul (1.5-7.7); Eosinophil % 5.9 %; Hematocrit 31 % (42-52); Hemoglobin 10.3 g/dL (14.0-18.0); Lymphocyte % 16.8 %; Mean Corpuscular HGB Conc 33 g/dL (31-36); Mean Corpuscular Hemoglobin 28 pg (27-31); Mean Corpuscular Volume 86 fL (80-94); Mean Platelet Volume 7.8 fL (7.4-10.4); Platelet Count 591 10^3/uL (150-450); Red Blood Count 3.62 10^6 /uL (4.18-5.48); Red Cell Distribution Width 15 % (10-15)
[2020-12-31] MEDS: Vancomycin 1000 MG in NS 0.9% 250 ML IVPB SCH ×3 (06:41→20:36)
[2020-12-31 07:05] LABS: Albumin/Globulin Ratio 0.9 (1-3); Calcium 9.1 mg/dL (8.6-10.3); Direct Bilirubin 0.1 mg/dL (0.03-0.18); EGFR African American 160.9 (>60); Globulin 3.4 g/dL (2-4); Indirect Bilirubin 0.2 mg/dL (0.3-1.0); Magnesium 1.9 mg/dL (1.9-2.7); Potassium 3.9 mmol/L (3.5-5.0); Total Bilirubin 0.3 mg/dL (0.2-1.0); Total Protein 6.4 g/dL (6.4-8.9)
[2020-12-31] MEDS: Polyethylene Glycol 3350 17 GM PACKET PO SCH ×2 (08:10→20:36)
[2020-12-31] MEDS: CMCS: OMEGA-3 FATTY ACID 1000 mg(NF) PO SCH (08:11)
[2020-12-31] MEDS: Cholecalciferol (VIT D3) 1,000 unit TAB PO SCH (08:12)
[2020-12-31] MEDS: Enoxaparin 40 MG/0.4 ML SYR SUBCUT SCH (14:10)
[2021-01-01] MEDS: Vancomycin 1000 MG in NS 0.9% 250 ML IVPB SCH ×3 (05:29→13:20)
[2021-01-01] MEDS: Vancomycin Trough Check NOTE FOLLOW UP ONE ×2 (05:30→06:27)
[2021-01-01 06:03] LABS: Hematocrit 30 % (42-52); Hemoglobin 10.2 g/dL (14.0-18.0); Mean Corpuscular HGB Conc 34 g/dL (31-36); Mean Corpuscular Hemoglobin 29 pg (27-31); Mean Corpuscular Volume 85 fL (80-94); Mean Platelet Volume 7.5 fL (7.4-10.4); Platelet Count 589 10^3/uL (150-450); Red Blood Count 3.57 10^6 /uL (4.18-5.48); Red Cell Distribution Width 15 % (10-15); White Blood Count 10.6 10^3/uL (3.5-10.8)
[2021-01-01 06:19] LABS: Vancomycin Trough 15.6 mcg/mL
[2021-01-01 06:21] LABS: ALT 56 U/L (7-52); AST 23 U/L (13-39); Albumin 3.1 g/dL (3.2-5.2); Albumin/Globulin Ratio 0.9 (1-3); Alkaline Phosphatase 209 U/L (35-149); Anion Gap 6 mmol/L (2-11); Blood Urea Nitrogen 9 mg/dL (6-24); CO2 Carbon Dioxide 27 mmol/L (22-32); Calcium 9.3 mg/dL (8.6-10.3); Chloride 106 mmol/L (101-111); EGFR African American 163.8 (>60); EGFR Non-African American 135.4 (>60); Globulin 3.6 g/dL (2-4); Glucose 99 mg/dL (70-100); Magnesium 1.9 mg/dL (1.9-2.7); Potassium 3.8 mmol/L (3.5-5.0); Sodium 139 mmol/L (135-145); Total Protein 6.7 g/dL (6.4-8.9)
[2021-01-01] MEDS: Polyethylene Glycol 3350 17 GM PACKET PO SCH (09:24)
[2021-01-01] MEDS: Cholecalciferol (VIT D3) 1,000 unit TAB PO SCH (09:25)
[2021-01-01] MEDS: CMCS: OMEGA-3 FATTY ACID 1000 mg(NF) PO SCH (09:26)
[2021-01-01 11:40] VITALS: BP 166/105
[2021-01-01] MEDS: Enoxaparin 40 MG/0.4 ML SYR SUBCUT SCH (13:20)
== END 2021-01-01 14:00 | DRG 853 ==
LOC: ED 22:08 → MEDTELE 12-19 01:56 → MED 12-19 23:14
PROVIDERS: ADMIT Student in an Organized Health Care Education/Training Program; ATTEND Internal Medicine

== ENCOUNTER 2021-01-03 12:02 | Observation (INO) ==
[2021-01-03] MEDS ORDERED: NS 0.9% 1000 ml BAG 1,000 ML IV ONE (12:23)
[2021-01-03 13:25] LABS: Albumin 3.7 g/dL (3.2-5.2); Calcium 9.7 mg/dL (8.6-10.3); Total Bilirubin 0.4 mg/dL (0.2-1.0)
[2021-01-03 13:31] LABS: Albumin/Globulin Ratio 0.9 (1-3); C Reactive Protein 62.44 mg/L (<8.01); EGFR African American 160.9 (>60); Globulin 4.3 g/dL (2-4)
[2021-01-03 13:35] LABS: ABS Basophils 0.1 10^3/ul (0-0.2); ABS Eosinophils 0.6 10^3/ul (0-0.6); ABS Lymphocytes 2.1 10^3/ul (1.0-4.8); ABS Monocytes 0.6 10^3/ul (0-0.8); ABS Neutrophils 8.1 10^3/ul (1.5-7.7); Eosinophil % 4.9 %; Hematocrit 37 % (42-52); Hemoglobin 12.2 g/dL (14.0-18.0); Lymphocyte % 18.4 %; Mean Corpuscular HGB Conc 33 g/dL (31-36); Mean Corpuscular Hemoglobin 28 pg (27-31); Mean Corpuscular Volume 86 fL (80-94); Mean Platelet Volume 7.6 fL (7.4-10.4); Nucleated Red Blood Cells % 0.1; Platelet Count 682 10^3/uL (150-450); Potassium 4.5 mmol/L (3.5-5.0); Red Blood Count 4.34 10^6 /uL (4.18-5.48); Red Cell Distribution Width 15 % (10-15); White Blood Count 11.4 10^3/uL (3.5-10.8)
[2021-01-03] MEDS ORDERED: Vancomycin 1,250 MG in NS 0.9% 250 ml 250 ML IVPB ONE (13:58)
[2021-01-03] MEDS ORDERED: NS 0.9% 250 ml 250 ML ONE (14:05)
[2021-01-03] MEDS ORDERED: Vancomycin per Pharmacy 1 EA NOTE FOLLOW UP SCH (15:00)
[2021-01-04] MEDS: Vancomycin 1000 MG in NS 0.9% 250 ML IVPB SCH ×2 (00:39→08:00)
[2021-01-04] MEDS ORDERED: Cholecalciferol (VIT D3) 1,000 unit TAB PO SCH (09:00)
[2021-01-04] MEDS ORDERED: Polyethylene Glycol 3350 17 GM PACKET PO SCH (09:00)
[2021-01-04 11:49] VITALS: BP 137/81
[2021-01-05] MEDS ORDERED: Vancomycin Trough Check NOTE FOLLOW UP ONE (06:30)
== END 2021-01-05 02:34 ==
LOC: ED 12:02 → MED 12:02
PROVIDERS: ADMIT Internal Medicine; ATTEND Internal Medicine

== ENCOUNTER 2021-03-04 18:12 | Inpatient (IN) ==
[2021-03-04] MEDS ORDERED: Cefepime 1 GM in Dextrose 1 GM/50 ML BAG IV ONE (18:53)
[2021-03-04] MEDS ORDERED: NS 0.9% 1000 ml BAG 1,000 ML IV.FLUID IV ONE (18:53)
[2021-03-04 19:10] LABS: ABS Basophils 0.1 10^3/ul (0-0.2); ABS Eosinophils 0.5 10^3/ul (0-0.6); ABS Lymphocytes 2.2 10^3/ul (1.0-4.8); ABS Neutrophils 8.5 10^3/ul (1.5-7.7); Eosinophil % 3.7 %; Hematocrit 35 % (42-52); Hemoglobin 11.3 g/dL (14.0-18.0); Lymphocyte % 18.1 %; Mean Corpuscular HGB Conc 32 g/dL (31-36); Mean Corpuscular Hemoglobin 25 pg (27-31); Mean Corpuscular Volume 77 fL (80-94); Mean Platelet Volume 8.1 fL (7.4-10.4); Platelet Count 424 10^3/uL (150-450); Red Blood Count 4.54 10^6 /uL (4.18-5.48); Red Cell Distribution Width 17 % (10-15); White Blood Count 12.4 10^3/uL (3.5-10.8)
[2021-03-04 19:22] LABS: Activated Partial Thrombo Time 31.6 seconds (26.0-38.0); INR 1.26 (0.86-1.15)
[2021-03-04 19:24] LABS: Albumin 3.7 g/dL (3.2-5.2); Albumin/Globulin Ratio 0.9 (1-3); C Reactive Protein 181.68 mg/L (<8.01); Calcium 9.5 mg/dL (8.6-10.3); EGFR African American 160.2 (>60); EGFR Non-African American 132.4 (>60); Globulin 4.2 g/dL (2-4); Potassium 3.6 mmol/L (3.5-5.0); Total Bilirubin 0.8 mg/dL (0.2-1.0); Total Protein 7.9 g/dL (6.4-8.9)
[2021-03-04 19:25] LABS: Troponin I 0.02 ng/mL (<0.03)
[2021-03-04] MEDS ORDERED: Vancomycin 1,500 MG in NS 0.9% 250 ml 250 ML IVPB ONE (19:27)
[2021-03-04 20:01] LABS: Urine Appearance Cloudy; Urine Bilirubin Negative (Negative); Urine Blood 3+ (Negative); Urine Color Yellow; Urine Glucose 1+(50 mg/dL) (Negative); Urine Ketones 1+ (Negative); Urine Nitrite Negative (Negative); Urine Protein 3+(>=500 mg/dL) (Negative); Urine Specific Gravity 1.023 (1.002-1.030); Urine Urobilinogen Negative (Negative)
[2021-03-04] MEDS ORDERED: HYDROmorphone 1 MG/1 ML SYRINGE IV SLOW PU ONE (20:14)
[2021-03-04 20:15] LABS: Urine Bacteria Absent (Absent); Urine Red Blood Cell 3+(>10/hpf) (Absent); Urine White Blood Cell Trace(0-5/hpf) (Absent)
[2021-03-04] MEDS ORDERED: Ondansetron 4 mg VIAL 2 MG/ML 2 ml VIAL IV ONE (20:23)
[2021-03-04] MEDS ORDERED: Iohexol 300 (CONTRAST) 10 ML SDV IV ONE (20:55)
[2021-03-04] MEDS ORDERED: Ciprofloxacin 400mg IVPREMIX 400 MG/200 ML BAG IVPB ONE (21:02)
[2021-03-04] MEDS ORDERED: Acetaminophen IV 1 GM/100ML 100 ML IV ONE (21:02)
[2021-03-04] MEDS ORDERED: Lactated Ringers 1000 ml BAG 1,000 ML IV ONE (22:49)
[2021-03-04] MEDS ORDERED: Ondansetron 4 mg VIAL 2 MG/ML 2 ml VIAL IV PRN (23:15)
[2021-03-05] MEDS: Lactated Ringers 1000 ml BAG 1,000 ML IV SCH (03:15)
[2021-03-05] MEDS: HYDROmorphone 0.5 MG/0.5 ML SYRINGE IV SLOW PU PRN (05:14)
[2021-03-05] MEDS: Enoxaparin 40 MG/0.4 ML SYR SUBCUT SCH (05:15)
[2021-03-05] MEDS ORDERED: Cefepime 1 GM in Dextrose 1 GM/50 ML BAG IV SCH (09:00)
[2021-03-05] MEDS: Cefepime 2 GM in Dextrose 2 GM/50 ML BAG IV SCH ×3 (10:17→23:14)
[2021-03-05] MEDS: Cholecalciferol (VIT D3) 1,000 unit TAB PO SCH (10:18)
[2021-03-05] MEDS: Polyethylene Glycol 3350 17 GM PACKET PO SCH (10:19)
[2021-03-05] MEDS: metroNIDAZOLE IV 500 MG/100ML 500 MG/100 ML BAG IVPB SCH (20:30)
[2021-03-06] MEDS: metroNIDAZOLE IV 500 MG/100ML 500 MG/100 ML BAG IVPB SCH ×3 (03:27→19:48)
[2021-03-06 04:42] LABS: ABS Basophils 0.1 10^3/ul (0-0.2); ABS Eosinophils 0.8 10^3/ul (0-0.6); ABS Lymphocytes 1.8 10^3/ul (1.0-4.8); ABS Monocytes 0.6 10^3/ul (0-0.8); ABS Neutrophils 5.1 10^3/ul (1.5-7.7); Eosinophil % 9.4 %; Hematocrit 29 % (42-52); Hemoglobin 9.4 g/dL (14.0-18.0); Lymphocyte % 21.4 %; Mean Corpuscular HGB Conc 33 g/dL (31-36); Mean Corpuscular Hemoglobin 25 pg (27-31); Mean Corpuscular Volume 77 fL (80-94); Mean Platelet Volume 8.1 fL (7.4-10.4); Platelet Count 333 10^3/uL (150-450); Red Blood Count 3.75 10^6 /uL (4.18-5.48); Red Cell Distribution Width 17 % (10-15); White Blood Count 8.4 10^3/uL (3.5-10.8)
[2021-03-06 04:55] LABS: Albumin 3.1 g/dL (3.2-5.2); Albumin/Globulin Ratio 0.9 (1-3); Calcium 8.9 mg/dL (8.6-10.3); EGFR African American 160.2 (>60); EGFR Non-African American 132.4 (>60); Globulin 3.3 g/dL (2-4); Potassium 3.5 mmol/L (3.5-5.0); Total Bilirubin 0.4 mg/dL (0.2-1.0); Total Protein 6.4 g/dL (6.4-8.9)
[2021-03-06] MEDS: Lactated Ringers 1000 ml BAG 1,000 ML IV SCH (05:04)
[2021-03-06] MEDS: Cholecalciferol (VIT D3) 1,000 unit TAB PO SCH (07:58)
[2021-03-06] MEDS: Enoxaparin 40 MG/0.4 ML SYR SUBCUT SCH (07:59)
[2021-03-06] MEDS: Polyethylene Glycol 3350 17 GM PACKET PO SCH (08:00)
[2021-03-06] MEDS: Cefepime 2 GM in Dextrose 2 GM/50 ML BAG IV SCH ×2 (08:00→21:25)
[2021-03-06] MEDS: HYDROmorphone 0.5 MG/0.5 ML SYRINGE IV SLOW PU PRN (18:11)
[2021-03-07] MEDS: metroNIDAZOLE IV 500 MG/100ML 500 MG/100 ML BAG IVPB SCH ×2 (03:29→10:38)
[2021-03-07 05:34] LABS: ABS Basophils 0.1 10^3/ul (0-0.2); ABS Eosinophils 0.8 10^3/ul (0-0.6); ABS Lymphocytes 1.9 10^3/ul (1.0-4.8); ABS Monocytes 0.6 10^3/ul (0-0.8); ABS Neutrophils 5.1 10^3/ul (1.5-7.7); Hematocrit 29 % (42-52); Hemoglobin 9.5 g/dL (14.0-18.0); Lymphocyte % 22.5 %; Mean Corpuscular HGB Conc 33 g/dL (31-36); Mean Corpuscular Hemoglobin 25 pg (27-31); Mean Corpuscular Volume 76 fL (80-94); Mean Platelet Volume 7.8 fL (7.4-10.4); Platelet Count 367 10^3/uL (150-450); Red Blood Count 3.75 10^6 /uL (4.18-5.48); Red Cell Distribution Width 17 % (10-15); White Blood Count 8.4 10^3/uL (3.5-10.8)
[2021-03-07] MEDS: Enoxaparin 40 MG/0.4 ML SYR SUBCUT SCH (07:56)
[2021-03-07] MEDS: Cholecalciferol (VIT D3) 1,000 unit TAB PO SCH (07:57)
[2021-03-07] MEDS: Cefepime 2 GM in Dextrose 2 GM/50 ML BAG IV SCH (07:57)
[2021-03-07] MEDS: Polyethylene Glycol 3350 17 GM PACKET PO SCH (07:57)
[2021-03-07] MEDS: HYDROmorphone 0.5 MG/0.5 ML SYRINGE IV SLOW PU PRN (10:34)
[2021-03-07 12:36] VITALS: BP 138/93
== END 2021-03-07 13:30 | DRG 871 ==
LOC: ED 18:12 → SUATTDRO 03-05 00:42 → MED 03-05 00:42
PROVIDERS: ADMIT Internal Medicine; ATTEND Internal Medicine

== ENCOUNTER 2021-04-23 08:49 | Inpatient (IN) ==
[2021-04-23] MEDS ORDERED: Lactated Ringers 1000 ml BAG 1,000 ML IV ONE ×2 (08:59→15:48)
[2021-04-23 09:49] LABS: ABS Basophils 0.1 10^3/ul (0-0.2); ABS Eosinophils 0.6 10^3/ul (0-0.6); ABS Lymphocytes 1.7 10^3/ul (1.0-4.8); ABS Monocytes 0.7 10^3/ul (0-0.8); ABS Neutrophils 8.9 10^3/ul (1.5-7.7); Eosinophil % 4.9 %; Hematocrit 36 % (42-52); Hemoglobin 11.5 g/dL (14.0-18.0); Mean Corpuscular HGB Conc 32 g/dL (31-36); Mean Corpuscular Hemoglobin 24 pg (27-31); Mean Corpuscular Volume 76 fL (80-94); Mean Platelet Volume 8.2 fL (7.4-10.4); Platelet Count 528 10^3/uL (150-450); Red Blood Count 4.76 10^6 /uL (4.18-5.48); Red Cell Distribution Width 19 % (10-15)
[2021-04-23 10:08] LABS: Albumin 3.8 g/dL (3.2-5.2); CO2 Carbon Dioxide 24 mmol/L (22-32); Calcium 10.2 mg/dL (8.6-10.3); Chloride 105 mmol/L (101-111); Sodium 138 mmol/L (135-145)
[2021-04-23 10:14] LABS: ALT 11 U/L (7-52); Alkaline Phosphatase 157 U/L (35-149); Blood Urea Nitrogen 16 mg/dL (6-24); Globulin 3.9 g/dL (2-4); Glucose 112 mg/dL (70-100); Total Protein 7.7 g/dL (6.4-8.9); Troponin I 0.01 ng/mL (<0.03)
[2021-04-23 10:18] LABS: Anion Gap 9 mmol/L (2-11)
[2021-04-23 10:48] LABS: TSH Ultra Thyroid Stim Horm 0.68 mcIU/mL (0.34-5.60)
[2021-04-23 12:05] LABS: Urine Appearance Cloudy; Urine Bilirubin Negative (Negative); Urine Blood 1+ (Negative); Urine Color Yellow; Urine Glucose Negative (Negative); Urine Ketones Negative (Negative); Urine Nitrite Positive (Negative); Urine Protein Negative (Negative); Urine Specific Gravity 1.012 (1.002-1.030); Urine Urobilinogen Negative (Negative)
[2021-04-23 12:12] LABS: Potassium Redraw 4.7 mmol/L (3.5-5.0)
[2021-04-23 13:01] LABS: Urine Bacteria Absent (Absent); Urine Red Blood Cell 3+(>10/hpf) (Absent); Urine White Blood Cell 3+(>20/hpf) (Absent)
[2021-04-23] MEDS ORDERED: Iohexol 350 (CONTRAST) 500 ML MDV IV ONE (14:15)
[2021-04-23 18:23] LABS: C Reactive Protein 158.94 mg/L (<8.01)
[2021-04-23] MEDS ORDERED: Ondansetron 4 mg VIAL 2 MG/ML 2 ml VIAL IV PRN (18:50)
[2021-04-23] MEDS ORDERED: Vancomycin per Pharmacy 1 EA NOTE FOLLOW UP SCH (19:00)
[2021-04-23] MEDS ORDERED: NS 0.9% 250 ml 250 ML ONE (19:48)
[2021-04-23] MEDS: Cefepime 2 GM in Dextrose 2 GM/50 ML BAG IV SCH (19:55)
[2021-04-23] MEDS ORDERED: Vancomycin 1,250 MG in NS 0.9% 250 ml 250 ML IVPB ONE (20:00)
[2021-04-23] MEDS: Nystatin TOP POWDER 15 GM BTL TOPICAL SCH (20:00)
[2021-04-23] MEDS: Lidocaine 2% JELLY 5 ML TUBE LIDO2GEL7 TOPICAL SCH (20:01)
[2021-04-23 20:50] LABS: Rapid COVID-19 Molecular Undetected (Undetected)
[2021-04-23] MEDS: Lactated Ringers 1000 ml BAG 1,000 ML IV SCH (22:52)
[2021-04-24] MEDS: HONEY 100% TOPICAL SCH (01:07)
[2021-04-24] MEDS: Cefepime 2 GM in Dextrose 2 GM/50 ML BAG IV SCH ×2 (05:52→20:49)
[2021-04-24 06:57] LABS: ABS Basophils 0.1 10^3/ul (0-0.2); ABS Eosinophils 0.7 10^3/ul (0-0.6); ABS Lymphocytes 2.3 10^3/ul (1.0-4.8); ABS Monocytes 0.5 10^3/ul (0-0.8); ABS Neutrophils 5.1 10^3/ul (1.5-7.7); Eosinophil % 8.3 %; Hematocrit 31 % (42-52); Hemoglobin 9.9 g/dL (14.0-18.0); Lymphocyte % 26.2 %; Mean Corpuscular HGB Conc 32 g/dL (31-36); Mean Corpuscular Hemoglobin 24 pg (27-31); Mean Corpuscular Volume 77 fL (80-94); Mean Platelet Volume 8.4 fL (7.4-10.4); Platelet Count 457 10^3/uL (150-450); Red Blood Count 4.08 10^6 /uL (4.18-5.48); Red Cell Distribution Width 19 % (10-15); White Blood Count 8.6 10^3/uL (3.5-10.8)
[2021-04-24 07:13] LABS: Albumin 3.1 g/dL (3.2-5.2); Albumin/Globulin Ratio 0.9 (1-3); Calcium 9.6 mg/dL (8.6-10.3); Direct Bilirubin 0.1 mg/dL (0.03-0.18); Globulin 3.6 g/dL (2-4); Indirect Bilirubin 0.3 mg/dL (0.3-1.0); Potassium 3.7 mmol/L (3.5-5.0); Total Bilirubin 0.4 mg/dL (0.2-1.0); Total Protein 6.7 g/dL (6.4-8.9)
[2021-04-24] MEDS ORDERED: OMEGA DHA EPA FISH OIL PO SCH (09:00)
[2021-04-24] MEDS: Vancomycin 750 MG in NS 0.9% 250 ML IVPB SCH ×3 (09:14→21:48)
[2021-04-24] MEDS: Polyethylene Glycol 3350 17 GM PACKET PO SCH (09:24)
[2021-04-24] MEDS: Cholecalciferol (VIT D3) 1,000 unit TAB PO SCH (09:25)
[2021-04-24] MEDS: Nystatin TOP POWDER 15 GM BTL TOPICAL SCH ×2 (09:46→20:56)
[2021-04-24] MEDS: Lidocaine 2% JELLY 5 ML TUBE LIDO2GEL7 TOPICAL SCH ×3 (13:03→22:03)
[2021-04-24] MEDS ORDERED: Senna TAB 8.6 mg TAB PO PRN (17:47)
[2021-04-24] MEDS ORDERED: Magnesium Hydroxide LIQ 30 ML UDC PO PRN (17:47)
[2021-04-24] MEDS: Lactated Ringers 1000 ml BAG 1,000 ML IV SCH (21:02)
[2021-04-25] MEDS: Vancomycin 750 MG in NS 0.9% 250 ML IVPB SCH ×3 (06:21→22:29)
[2021-04-25 08:55] LABS: ABS Basophils 0.1 10^3/ul (0-0.2); ABS Eosinophils 0.9 10^3/ul (0-0.6); ABS Lymphocytes 1.5 10^3/ul (1.0-4.8); ABS Monocytes 0.4 10^3/ul (0-0.8); ABS Neutrophils 4.8 10^3/ul (1.5-7.7); Eosinophil % 11.9 %; Hematocrit 29 % (42-52); Hemoglobin 9.5 g/dL (14.0-18.0); Lymphocyte % 19.4 %; Mean Corpuscular HGB Conc 33 g/dL (31-36); Mean Corpuscular Hemoglobin 25 pg (27-31); Mean Corpuscular Volume 75 fL (80-94); Mean Platelet Volume 7.9 fL (7.4-10.4); Nucleated Red Blood Cells % 0.1; Platelet Count 419 10^3/uL (150-450); Red Blood Count 3.86 10^6 /uL (4.18-5.48); Red Cell Distribution Width 18 % (10-15); White Blood Count 7.7 10^3/uL (3.5-10.8)
[2021-04-25 09:05] LABS: C Reactive Protein 87.69 mg/L (<8.01); Calcium 9.1 mg/dL (8.6-10.3); Potassium 3.6 mmol/L (3.5-5.0)
[2021-04-25] MEDS: Cefepime 2 GM in Dextrose 2 GM/50 ML BAG IV SCH (09:15)
[2021-04-25] MEDS: Cholecalciferol (VIT D3) 1,000 unit TAB PO SCH (09:16)
[2021-04-25] MEDS: Nystatin TOP POWDER 15 GM BTL TOPICAL SCH ×2 (09:17→22:43)
[2021-04-25] MEDS: Polyethylene Glycol 3350 17 GM PACKET PO SCH (09:17)
[2021-04-25] MEDS: CMCS: OMEGA-3 FATTY ACID 1000 mg(NF) PO SCH (09:17)
[2021-04-25] MEDS ORDERED: Piperacillin/Tazobac ADVAN 3.375 GM in NS 0.9% 100 ml BAG 100 ML IV ONE (11:43)
[2021-04-25] MEDS ORDERED: Zosyn per Pharmacy NOTE FOLLOW UP SCH (12:00)
[2021-04-25] MEDS ORDERED: Vancomycin Trough Check NOTE FOLLOW UP ONE (13:30)
[2021-04-25 14:11] LABS: Vancomycin Trough 19.4 mcg/mL
[2021-04-25 14:13] LABS: % Iron Saturation 11 % (15-55); Iron 26 ug/dL (50-212); Total Iron Binding Capacity 239 mcg/dL (250-450); Transferrin 171 mg/dL (203-362); Unsaturated Iron Binding < 224 ug/dL
[2021-04-25 14:33] LABS: Ferritin 221.5 ng/mL (24-336)
[2021-04-25] MEDS: Lidocaine 2% JELLY 5 ML TUBE LIDO2GEL7 TOPICAL SCH ×2 (14:33→22:40)
[2021-04-25] MEDS: Lactated Ringers 1000 ml BAG 1,000 ML IV SCH (17:08)
[2021-04-25] MEDS: ZOSYN 3.375 GM Q8H per EXTENDED INFUSION IV SCH (17:09)
[2021-04-26] MEDS: ZOSYN 3.375 GM Q8H per EXTENDED INFUSION IV SCH ×3 (02:10→18:26)
[2021-04-26] MEDS: Vancomycin 750 MG in NS 0.9% 250 ML IVPB SCH (06:20)
[2021-04-26] MEDS: Lidocaine 2% JELLY 5 ML TUBE LIDO2GEL7 TOPICAL SCH ×3 (10:09→20:22)
[2021-04-26] MEDS: Polyethylene Glycol 3350 17 GM PACKET PO SCH (11:58)
[2021-04-26] MEDS: Cholecalciferol (VIT D3) 1,000 unit TAB PO SCH (12:00)
[2021-04-26] MEDS: Nystatin TOP POWDER 15 GM BTL TOPICAL SCH ×2 (12:06→20:19)
[2021-04-26] MEDS: CMCS: OMEGA-3 FATTY ACID 1000 mg(NF) PO SCH (12:13)
[2021-04-26 17:58] LABS: Urine Appearance Cloudy; Urine Bilirubin Negative (Negative); Urine Blood 2+ (Negative); Urine Color Yellow; Urine Glucose Negative (Negative); Urine Ketones Negative (Negative); Urine Nitrite Negative (Negative); Urine Protein Negative (Negative); Urine Specific Gravity 1.014 (1.002-1.030); Urine Urobilinogen Negative (Negative)
[2021-04-26 18:03] LABS: Urine Bacteria Absent (Absent); Urine Red Blood Cell 3+(>10/hpf) (Absent); Urine Squamous Epithelial Cell Present (Absent); Urine White Blood Cell 2+(11-20/hpf) (Absent)
[2021-04-26] MEDS: HONEY 100% TOPICAL SCH (20:17)
[2021-04-27] MEDS: ZOSYN 3.375 GM Q8H per EXTENDED INFUSION IV SCH ×3 (00:12→16:57)
[2021-04-27 07:03] LABS: ABS Basophils 0.1 10^3/ul (0-0.2); ABS Eosinophils 0.8 10^3/ul (0-0.6); ABS Lymphocytes 1.9 10^3/ul (1.0-4.8); ABS Monocytes 0.6 10^3/ul (0-0.8); ABS Neutrophils 5.9 10^3/ul (1.5-7.7); Eosinophil % 8.4 %; Hematocrit 31 % (42-52); Lymphocyte % 20.4 %; Mean Corpuscular HGB Conc 32 g/dL (31-36); Mean Corpuscular Hemoglobin 24 pg (27-31); Mean Corpuscular Volume 75 fL (80-94); Mean Platelet Volume 8.2 fL (7.4-10.4); Platelet Count 494 10^3/uL (150-450); Red Blood Count 4.13 10^6 /uL (4.18-5.48); Red Cell Distribution Width 18 % (10-15); White Blood Count 9.2 10^3/uL (3.5-10.8)
[2021-04-27 07:18] LABS: C Reactive Protein 71.45 mg/L (<8.01); Calcium 9.4 mg/dL (8.6-10.3); Magnesium 2.1 mg/dL (1.9-2.7); Potassium 3.7 mmol/L (3.5-5.0)
[2021-04-27] MEDS: Cholecalciferol (VIT D3) 1,000 unit TAB PO SCH (08:37)
[2021-04-27] MEDS: CMCS: OMEGA-3 FATTY ACID 1000 mg(NF) PO SCH (08:37)
[2021-04-27] MEDS: Polyethylene Glycol 3350 17 GM PACKET PO SCH (08:39)
[2021-04-27] MEDS: Nystatin TOP POWDER 15 GM BTL TOPICAL SCH ×2 (08:46→20:11)
[2021-04-27] MEDS: Lidocaine 2% JELLY 5 ML TUBE LIDO2GEL7 TOPICAL SCH ×3 (09:20→20:11)
[2021-04-28] MEDS: ZOSYN 3.375 GM Q8H per EXTENDED INFUSION IV SCH ×3 (00:16→16:17)
[2021-04-28] MEDS ORDERED: Vancomycin Trough Check NOTE FOLLOW UP ONE (05:30)
[2021-04-28] MEDS: Polyethylene Glycol 3350 17 GM PACKET PO SCH (09:13)
[2021-04-28] MEDS: CMCS: OMEGA-3 FATTY ACID 1000 mg(NF) PO SCH (09:14)
[2021-04-28] MEDS: Cholecalciferol (VIT D3) 1,000 unit TAB PO SCH (09:15)
[2021-04-28] MEDS: Nystatin TOP POWDER 15 GM BTL TOPICAL SCH ×2 (09:19→22:43)
[2021-04-28] MEDS: Lidocaine 2% JELLY 5 ML TUBE LIDO2GEL7 TOPICAL SCH ×3 (09:20→22:42)
[2021-04-28] MEDS: HONEY 100% TOPICAL SCH (18:01)
[2021-04-29] MEDS: ZOSYN 3.375 GM Q8H per EXTENDED INFUSION IV SCH ×3 (00:18→15:26)
[2021-04-29] MEDS: Nystatin TOP POWDER 15 GM BTL TOPICAL SCH ×2 (08:43→23:41)
[2021-04-29] MEDS: Lidocaine 2% JELLY 5 ML TUBE LIDO2GEL7 TOPICAL SCH ×3 (08:43→22:26)
[2021-04-29] MEDS: Cholecalciferol (VIT D3) 1,000 unit TAB PO SCH (08:44)
[2021-04-29] MEDS: CMCS: OMEGA-3 FATTY ACID 1000 mg(NF) PO SCH (08:44)
[2021-04-29] MEDS: Polyethylene Glycol 3350 17 GM PACKET PO SCH ×2 (08:45)
[2021-04-30] MEDS: ZOSYN 3.375 GM Q8H per EXTENDED INFUSION IV SCH ×3 (00:33→16:14)
[2021-04-30] MEDS: Cholecalciferol (VIT D3) 1,000 unit TAB PO SCH (08:46)
[2021-04-30] MEDS: Nystatin TOP POWDER 15 GM BTL TOPICAL SCH ×3 (08:47→20:37)
[2021-04-30] MEDS: Lidocaine 2% JELLY 5 ML TUBE LIDO2GEL7 TOPICAL SCH ×3 (08:47→20:36)
[2021-04-30] MEDS: CMCS: OMEGA-3 FATTY ACID 1000 mg(NF) PO SCH (08:47)
[2021-04-30] MEDS: Polyethylene Glycol 3350 17 GM PACKET PO SCH (08:48)
[2021-05-01] MEDS: ZOSYN 3.375 GM Q8H per EXTENDED INFUSION IV SCH ×3 (00:33→16:05)
[2021-05-01] MEDS: HONEY 100% TOPICAL SCH (07:17)
[2021-05-01] MEDS: Lidocaine 2% JELLY 5 ML TUBE LIDO2GEL7 TOPICAL SCH ×3 (08:08→22:09)
[2021-05-01] MEDS: Nystatin TOP POWDER 15 GM BTL TOPICAL SCH ×2 (09:17→22:09)
[2021-05-01] MEDS: Cholecalciferol (VIT D3) 1,000 unit TAB PO SCH (09:18)
[2021-05-01] MEDS: CMCS: OMEGA-3 FATTY ACID 1000 mg(NF) PO SCH (09:18)
[2021-05-01] MEDS: Polyethylene Glycol 3350 17 GM PACKET PO SCH (09:19)
[2021-05-02] MEDS ORDERED: IRON-VITAMIN C 65/125(NF) (FERRONYL IRON) PO SCH (09:00)
[2021-05-02] MEDS: Cholecalciferol (VIT D3) 1,000 unit TAB PO SCH (09:50)
[2021-05-02] MEDS: Lidocaine 2% JELLY 5 ML TUBE LIDO2GEL7 TOPICAL SCH (09:51)
[2021-05-02] MEDS: Nystatin TOP POWDER 15 GM BTL TOPICAL SCH (09:53)
[2021-05-02] MEDS: Polyethylene Glycol 3350 17 GM PACKET PO SCH (09:53)
[2021-05-02] MEDS: CMCS: OMEGA-3 FATTY ACID 1000 mg(NF) PO SCH (10:02)
[2021-05-02 10:39] LABS: Rapid COVID-19 Molecular Undetected (Undetected)
[2021-05-02 12:30] VITALS: BP 99/55
== END 2021-05-02 13:00 | DRG 871 ==
LOC: MED 08:49 → ED 08:49 → SUATTDRO 20:42 → MED 21:57 → SSU 04-24 23:20 → SUATTDRO 04-25 15:30
PROVIDERS: ADMIT Internal Medicine; ATTEND Internal Medicine

== ENCOUNTER 2021-05-14 19:22 | Inpatient (IN) ==
[2021-05-14] MEDS ORDERED: Linezolid 600 MG IVPREMIX(*) 600 MG/300 ML BAG IVPB ONE (19:55)
[2021-05-14] MEDS ORDERED: Piperacillin/Tazobac ADVAN 3.375 GM in NS 0.9% 100 ml BAG 100 ML IV ONE (19:55)
[2021-05-14] MEDS ORDERED: Piperacillin/Tazobac 3.375 GM BAG ONE (20:59)
[2021-05-14 21:10] LABS: ABS Basophils 0.1 10^3/ul (0-0.2); ABS Eosinophils 0.6 10^3/ul (0-0.6); ABS Lymphocytes 2.3 10^3/ul (1.0-4.8); ABS Monocytes 0.8 10^3/ul (0-0.8); ABS Neutrophils 7.4 10^3/ul (1.5-7.7); Eosinophil % 5.1 %; Hematocrit 30 % (42-52); Hemoglobin 9.4 g/dL (14.0-18.0); Lymphocyte % 20.6 %; Mean Corpuscular HGB Conc 32 g/dL (31-36); Mean Corpuscular Hemoglobin 24 pg (27-31); Mean Corpuscular Volume 75 fL (80-94); Platelet Count 603 10^3/uL (150-450); Red Blood Count 3.97 10^6 /uL (4.18-5.48); Red Cell Distribution Width 19 % (10-15); White Blood Count 11.2 10^3/uL (3.5-10.8)
[2021-05-14] MEDS ORDERED: Acetaminophen IV 1 GM/100ML 100 ML IV ONE (21:21)
[2021-05-14 21:24] LABS: Activated Partial Thrombo Time 37.8 seconds (26.0-38.0); INR 1.87 (0.86-1.15); Urine Appearance Turbid; Urine Bilirubin Negative (Negative); Urine Blood 2+ (Negative); Urine Color Amber; Urine Glucose Negative (Negative); Urine Ketones Negative (Negative); Urine Nitrite Positive (Negative); Urine Protein 2+(100 mg/dL) (Negative); Urine Specific Gravity 1.021 (1.002-1.030); Urine Urobilinogen Negative (Negative)
[2021-05-14 21:30] LABS: Rapid COVID-19 Molecular Undetected (Undetected)
[2021-05-14 21:31] LABS: ALT 21 U/L (7-52); AST 18 U/L (13-39); Albumin 3.1 g/dL (3.2-5.2); Albumin/Globulin Ratio 0.9 (1-3); Alkaline Phosphatase 168 U/L (35-149); Anion Gap 8 mmol/L (2-11); Blood Urea Nitrogen 22 mg/dL (6-24); C Reactive Protein 110.96 mg/L (<8.01); CO2 Carbon Dioxide 26 mmol/L (22-32); Calcium 9.4 mg/dL (8.6-10.3); Chloride 104 mmol/L (101-111); Globulin 3.6 g/dL (2-4); Glucose 137 mg/dL (70-100); Potassium 3.7 mmol/L (3.5-5.0); Sodium 138 mmol/L (135-145); Total Protein 6.7 g/dL (6.4-8.9); Urine Bacteria Absent (Absent); Urine Red Blood Cell 2+(6-10/hpf) (Absent); Urine White Blood Cell 3+(>20/hpf) (Absent)
[2021-05-14 21:35] LABS: Troponin I 0.06 ng/mL (<0.03)
[2021-05-14] MEDS ORDERED: Lactated Ringers 1000 ml BAG IV.FLUID IV ONE (22:43)
[2021-05-14] MEDS ORDERED: Zosyn per Pharmacy NOTE FOLLOW UP SCH (23:45)
[2021-05-14] MEDS ORDERED: Magnesium Hydroxide LIQ 30 ML UDC PO PRN (23:47)
[2021-05-14] MEDS ORDERED: Nystatin TOP POWDER 15 GM BTL TOPICAL PRN (23:47)
[2021-05-15] MEDS ORDERED: Piperacillin/Tazobac ADVAN 3.375 GM in NS 0.9% 100 ml BAG 100 ML IV ONE (03:00)
[2021-05-15 06:20] LABS: ABS Basophils 0.1 10^3/ul (0-0.2); ABS Eosinophils 0.6 10^3/ul (0-0.6); ABS Lymphocytes 2.4 10^3/ul (1.0-4.8); ABS Monocytes 0.7 10^3/ul (0-0.8); ABS Neutrophils 5.5 10^3/ul (1.5-7.7); Eosinophil % 6.7 %; Hematocrit 30 % (42-52); Hemoglobin 9.5 g/dL (14.0-18.0); Lymphocyte % 25.6 %; Mean Corpuscular HGB Conc 32 g/dL (31-36); Mean Corpuscular Hemoglobin 24 pg (27-31); Mean Corpuscular Volume 75 fL (80-94); Mean Platelet Volume 7.5 fL (7.4-10.4); Platelet Count 542 10^3/uL (150-450); Red Blood Count 3.94 10^6 /uL (4.18-5.48); Red Cell Distribution Width 18 % (10-15); White Blood Count 9.3 10^3/uL (3.5-10.8)
[2021-05-15 06:39] LABS: Calcium 9.4 mg/dL (8.6-10.3); Potassium 3.7 mmol/L (3.5-5.0)
[2021-05-15 06:42] LABS: Troponin I 0.01 ng/mL (<0.03)
[2021-05-15] MEDS ORDERED: Gadoteridol (CONTRAST) 279.3 MG/ML 10 ML IV ONE ×2 (10:14→11:05)
[2021-05-15] MEDS: Cholecalciferol (VIT D3) 1,000 unit TAB PO SCH (12:06)
[2021-05-15] MEDS: Polyethylene Glycol 3350 17 GM PACKET PO SCH (12:12)
[2021-05-15] MEDS: Linezolid 600 MG IVPREMIX(*) 600 MG/300 ML BAG IVPB SCH ×2 (12:14→22:34)
[2021-05-15] MEDS: ZOSYN 3.375 GM Q8H per EXTENDED INFUSION IV SCH ×2 (12:14→17:54)
[2021-05-16] MEDS: ZOSYN 3.375 GM Q8H per EXTENDED INFUSION IV SCH ×4 (01:33→22:44)
[2021-05-16] MEDS: Linezolid 600 MG IVPREMIX(*) 600 MG/300 ML BAG IVPB SCH ×2 (09:26→20:32)
[2021-05-16] MEDS: Cholecalciferol (VIT D3) 1,000 unit TAB PO SCH (10:02)
[2021-05-16] MEDS: Polyethylene Glycol 3350 17 GM PACKET PO SCH (10:03)
[2021-05-16 11:21] LABS: ABS Basophils 0.1 10^3/ul (0-0.2); ABS Eosinophils 0.5 10^3/ul (0-0.6); ABS Monocytes 0.5 10^3/ul (0-0.8); ABS Neutrophils 5.5 10^3/ul (1.5-7.7); Eosinophil % 6.1 %; Hematocrit 29 % (42-52); Hemoglobin 9.3 g/dL (14.0-18.0); Lymphocyte % 23.1 %; Mean Corpuscular HGB Conc 32 g/dL (31-36); Mean Corpuscular Hemoglobin 24 pg (27-31); Mean Corpuscular Volume 75 fL (80-94); Mean Platelet Volume 7.9 fL (7.4-10.4); Platelet Count 497 10^3/uL (150-450); Red Blood Count 3.83 10^6 /uL (4.18-5.48); Red Cell Distribution Width 18 % (10-15); White Blood Count 8.6 10^3/uL (3.5-10.8)
[2021-05-16 11:29] LABS: Calcium 9.1 mg/dL (8.6-10.3); Potassium 3.9 mmol/L (3.5-5.0)
[2021-05-17] MEDS: ZOSYN 3.375 GM Q8H per EXTENDED INFUSION IV SCH ×3 (04:37→17:59)
[2021-05-17] MEDS: Linezolid 600 MG IVPREMIX(*) 600 MG/300 ML BAG IVPB SCH ×2 (10:10→23:27)
[2021-05-17] MEDS: Cholecalciferol (VIT D3) 1,000 unit TAB PO SCH (10:11)
[2021-05-17] MEDS: Polyethylene Glycol 3350 17 GM PACKET PO SCH (10:12)
[2021-05-18] MEDS: ZOSYN 3.375 GM Q8H per EXTENDED INFUSION IV SCH ×3 (02:34→18:29)
[2021-05-18 06:49] LABS: ABS Basophils 0.1 10^3/ul (0-0.2); ABS Eosinophils 0.7 10^3/ul (0-0.6); ABS Lymphocytes 2.2 10^3/ul (1.0-4.8); ABS Monocytes 0.5 10^3/ul (0-0.8); ABS Neutrophils 5.1 10^3/ul (1.5-7.7); Hematocrit 29 % (42-52); Hemoglobin 9.4 g/dL (14.0-18.0); Lymphocyte % 25.3 %; Mean Corpuscular HGB Conc 32 g/dL (31-36); Mean Corpuscular Hemoglobin 25 pg (27-31); Mean Corpuscular Volume 76 fL (80-94); Mean Platelet Volume 7.8 fL (7.4-10.4); Platelet Count 532 10^3/uL (150-450); Red Blood Count 3.82 10^6 /uL (4.18-5.48); Red Cell Distribution Width 19 % (10-15); White Blood Count 8.5 10^3/uL (3.5-10.8)
[2021-05-18 07:39] LABS: Potassium 4.2 mmol/L (3.5-5.0)
[2021-05-18] MEDS: Cholecalciferol (VIT D3) 1,000 unit TAB PO SCH (09:04)
[2021-05-18] MEDS: Linezolid 600 MG IVPREMIX(*) 600 MG/300 ML BAG IVPB SCH (09:06)
[2021-05-18] MEDS: Polyethylene Glycol 3350 17 GM PACKET PO SCH (09:06)
[2021-05-19] MEDS: ZOSYN 3.375 GM Q8H per EXTENDED INFUSION IV SCH ×2 (01:47→12:15)
[2021-05-19] MEDS ORDERED: Morphine 2 MG/ML SYRINGE IV PRN ×2 (08:51→09:44)
[2021-05-19] MEDS: Polyethylene Glycol 3350 17 GM PACKET PO SCH (10:35)
[2021-05-19] MEDS: Cholecalciferol (VIT D3) 1,000 unit TAB PO SCH (10:35)
[2021-05-19] MEDS ORDERED: Cefepime ADVAN 1 GM in NS 0.9% 50 ML 50 ML IVPB SCH (13:30)
[2021-05-19] MEDS: Cefepime 1 GM in Dextrose 1 GM/50 ML BAG IV SCH (15:24)
[2021-05-20] MEDS: Cefepime 1 GM in Dextrose 1 GM/50 ML BAG IV SCH ×2 (02:19→17:43)
[2021-05-20 10:11] LABS: ABS Basophils 0.1 10^3/ul (0-0.2); ABS Eosinophils 0.7 10^3/ul (0-0.6); ABS Lymphocytes 2.6 10^3/ul (1.0-4.8); ABS Monocytes 0.5 10^3/ul (0-0.8); ABS Neutrophils 6.3 10^3/ul (1.5-7.7); Eosinophil % 7.3 %; Hematocrit 30 % (42-52); Hemoglobin 9.4 g/dL (14.0-18.0); Mean Corpuscular HGB Conc 32 g/dL (31-36); Mean Corpuscular Hemoglobin 24 pg (27-31); Mean Corpuscular Volume 75 fL (80-94); Mean Platelet Volume 7.4 fL (7.4-10.4); Platelet Count 573 10^3/uL (150-450); Red Blood Count 3.92 10^6 /uL (4.18-5.48); Red Cell Distribution Width 18 % (10-15); White Blood Count 10.2 10^3/uL (3.5-10.8)
[2021-05-20] MEDS: Cholecalciferol (VIT D3) 1,000 unit TAB PO SCH (10:17)
[2021-05-20] MEDS: Polyethylene Glycol 3350 17 GM PACKET PO SCH (10:19)
[2021-05-20 10:30] LABS: Calcium 9.3 mg/dL (8.6-10.3)
[2021-05-21] MEDS: Cefepime 1 GM in Dextrose 1 GM/50 ML BAG IV SCH (02:12)
[2021-05-21 03:22] VITALS: BP 136/90
[2021-05-21] MEDS: Polyethylene Glycol 3350 17 GM PACKET PO SCH (09:24)
[2021-05-21] MEDS: Cholecalciferol (VIT D3) 1,000 unit TAB PO SCH (09:25)
[2021-05-21 11:36] LABS: Rapid COVID-19 Molecular Undetected (Undetected)
== END 2021-05-21 14:30 | DRG 698 ==
LOC: ED 19:22 → MEDTELE 05-15 01:24 → SUATTDRO 05-15 01:24 → MEDTELE 05-15 02:41
PROVIDERS: ADMIT Internal Medicine; ATTEND Internal Medicine

== ENCOUNTER 2022-03-27 13:18 | Inpatient (IN) ==
[2022-03-27 15:23] LABS: Urine Appearance Turbid; Urine Bilirubin Negative (Negative); Urine Blood 1+ (Negative); Urine Color Amber; Urine Glucose Negative (Negative); Urine Ketones Negative (Negative); Urine Nitrite Negative (Negative); Urine Protein 3+(>=500 mg/dL) (Negative); Urine Specific Gravity 1.017 (1.002-1.030); Urine Urobilinogen Negative (Negative)
[2022-03-27 15:24] LABS: ABS Basophils 0.1 10^3/ul (0-0.2); ABS Eosinophils 0.4 10^3/ul (0-0.6); ABS Lymphocytes 2.6 10^3/ul (1.0-4.8); ABS Monocytes 0.9 10^3/ul (0-0.8); Eosinophil % 2.6 %; Hematocrit 39 % (42-52); Hemoglobin 12.5 g/dL (14.0-18.0); Lymphocyte % 18.6 %; Mean Corpuscular HGB Conc 32 g/dL (31-36); Mean Corpuscular Hemoglobin 24 pg (27-31); Mean Corpuscular Volume 73 fL (80-94); Mean Platelet Volume 8.6 fL (7.4-10.4); Platelet Count 400 10^3/uL (150-450); Red Blood Count 5.27 10^6 /uL (4.18-5.48); Red Cell Distribution Width 20 % (10-15)
[2022-03-27 15:34] LABS: Urine Bacteria 1+ (Absent); Urine Red Blood Cell 3+(>10/hpf) (Absent); Urine White Blood Cell 3+(>20/hpf) (Absent)
[2022-03-27] MEDS ORDERED: Lactated Ringers 1000 ml BAG 1,000 ML IV ONE (15:45)
[2022-03-27] MEDS ORDERED: cefTRIAXone 2 gm/50 mL D5W 2 GM/50 ML BAG IV ONE ×2 (15:46→19:31)
[2022-03-27 15:50] LABS: Albumin 3.8 g/dL (3.2-5.2); Calcium 9.9 mg/dL (8.6-10.3); Globulin 3.7 g/dL (2-4); Potassium 4.7 mmol/L (3.5-5.0); Total Bilirubin 0.6 mg/dL (0.2-1.0); Total Protein 7.5 g/dL (6.4-8.9); eGFR CKD-EPI 92.4 (>60)
[2022-03-27] MEDS ORDERED: BEBTELOVIMAB 175 MG/2 ML VIAL IV ONE (16:32)
[2022-03-27 22:37] LABS: C Reactive Protein 223.49 mg/L (<8.01)
[2022-03-27] MEDS ORDERED: Magnesium Hydroxide LIQ 30 ML UDC PO PRN (23:29)
[2022-03-28] MEDS ORDERED: Magnesium Hydroxide LIQ 30 ML UDC PO PRN (00:21)
[2022-03-28 06:59] LABS: ABS Basophils 0.1 10^3/ul (0-0.2); ABS Eosinophils 0.2 10^3/ul (0-0.6); ABS Lymphocytes 1.4 10^3/ul (1.0-4.8); ABS Monocytes 0.8 10^3/ul (0-0.8); ABS Neutrophils 8.3 10^3/ul (1.5-7.7); Eosinophil % 2.2 %; Hematocrit 33 % (42-52); Hemoglobin 10.5 g/dL (14.0-18.0); Lymphocyte % 12.7 %; Mean Corpuscular HGB Conc 32 g/dL (31-36); Mean Corpuscular Hemoglobin 24 pg (27-31); Mean Corpuscular Volume 73 fL (80-94); Mean Platelet Volume 8.4 fL (7.4-10.4); Platelet Count 309 10^3/uL (150-450); Red Blood Count 4.49 10^6 /uL (4.18-5.48); Red Cell Distribution Width 19 % (10-15); White Blood Count 10.7 10^3/uL (3.5-10.8)
[2022-03-28 07:37] LABS: Potassium 4.4 mmol/L (3.5-5.0); eGFR CKD-EPI 113.9 (>60)
[2022-03-28] MEDS ORDERED: Cefepime 1 GM in Dextrose 1 GM/50 ML BAG IV SCH (09:00)
[2022-03-28] MEDS: [UNRECOGNIZED DRUG - OTHER] PO SCH ×2 (10:57→21:17)
[2022-03-28] MEDS ORDERED: Zosyn per Pharmacy NOTE FOLLOW UP SCH (14:00)
[2022-03-28] MEDS: Lactated Ringers 1000 ml BAG 1,000 ML IV SCH ×2 (17:09→23:01)
[2022-03-28] MEDS ORDERED: Piperacillin/Tazobac ADVAN 3.375 GM in NS 0.9% 100 ml BAG 100 ML IV ONE (17:30)
[2022-03-28] MEDS ORDERED: Lactated Ringers 500 ml BAG 500 ML IV ONE (17:34)
[2022-03-28] MEDS: Senna TAB 8.6 mg TAB PO SCH (21:14)
[2022-03-28] MEDS: ZOSYN 3.375 GM Q8H per EXTENDED INFUSION IV SCH (22:43)
[2022-03-29 05:33] LABS: ABS Basophils 0.1 10^3/ul (0-0.2); ABS Eosinophils 0.5 10^3/ul (0-0.6); ABS Lymphocytes 2.1 10^3/ul (1.0-4.8); ABS Monocytes 0.6 10^3/ul (0-0.8); ABS Neutrophils 3.6 10^3/ul (1.5-7.7); Eosinophil % 7.2 %; Hematocrit 29 % (42-52); Hemoglobin 9.1 g/dL (14.0-18.0); Lymphocyte % 30.1 %; Mean Corpuscular HGB Conc 32 g/dL (31-36); Mean Corpuscular Hemoglobin 23 pg (27-31); Mean Corpuscular Volume 73 fL (80-94); Mean Platelet Volume 8.4 fL (7.4-10.4); Platelet Count 301 10^3/uL (150-450); Red Blood Count 3.93 10^6 /uL (4.18-5.48); Red Cell Distribution Width 19 % (10-15); White Blood Count 6.8 10^3/uL (3.5-10.8)
[2022-03-29 05:56] LABS: Anion Gap 6 mmol/L (2-11); Blood Urea Nitrogen 17 mg/dL (6-24); CO2 Carbon Dioxide 24 mmol/L (22-32); Calcium 8.5 mg/dL (8.6-10.3); Chloride 111 mmol/L (101-111); Glucose 109 mg/dL (70-100); Sodium 141 mmol/L (135-145); eGFR CKD-EPI 112.6 (>60)
[2022-03-29] MEDS: ZOSYN 3.375 GM Q8H per EXTENDED INFUSION IV SCH ×3 (06:00→22:20)
[2022-03-29] MEDS: [UNRECOGNIZED DRUG - OTHER] PO SCH ×2 (09:21→20:59)
[2022-03-29 09:44] LABS: Total Iron Binding Capacity 245 mcg/dL (250-450); Transferrin 175 mg/dL (203-362)
[2022-03-29 09:52] LABS: % Iron Saturation 8 % (15-55); Iron < 20 ug/dL (50-212); Unsaturated Iron Binding 225 ug/dL
[2022-03-29 10:04] LABS: Ferritin 119.5 ng/mL (24-336)
[2022-03-29] MEDS ORDERED: Iron Sucrose 200 MG in NS 0.9% 100 ml BAG 100 ML IVPB ONE (11:55)
[2022-03-29] MEDS: Senna TAB 8.6 mg TAB PO SCH (20:59)
[2022-03-30] MEDS: ZOSYN 3.375 GM Q8H per EXTENDED INFUSION IV SCH (05:40)
[2022-03-30 06:33] LABS: ABS Basophils 0.1 10^3/ul (0-0.2); ABS Eosinophils 0.7 10^3/ul (0-0.6); ABS Lymphocytes 1.9 10^3/ul (1.0-4.8); ABS Monocytes 0.5 10^3/ul (0-0.8); ABS Neutrophils 3.2 10^3/ul (1.5-7.7); Eosinophil % 10.5 %; Hematocrit 32 % (42-52); Hemoglobin 9.9 g/dL (14.0-18.0); Lymphocyte % 30.1 %; Mean Corpuscular HGB Conc 31 g/dL (31-36); Mean Corpuscular Hemoglobin 23 pg (27-31); Mean Corpuscular Volume 74 fL (80-94); Mean Platelet Volume 7.9 fL (7.4-10.4); Platelet Count 372 10^3/uL (150-450); Red Blood Count 4.33 10^6 /uL (4.18-5.48); Red Cell Distribution Width 19 % (10-15); White Blood Count 6.4 10^3/uL (3.5-10.8)
[2022-03-30 07:12] LABS: C Reactive Protein 87.59 mg/L (<8.01); Calcium 9.3 mg/dL (8.6-10.3); Magnesium 2.2 mg/dL (1.9-2.7); Potassium 4.5 mmol/L (3.5-5.0)
[2022-03-30] MEDS ORDERED: Iron Sucrose 200 MG in NS 0.9% 100 ml BAG 100 ML IVPB ONE (09:00)
[2022-03-30 10:55] VITALS: BP 112/69
[2022-03-30] MEDS: [UNRECOGNIZED DRUG - OTHER] PO SCH (11:31)
== END 2022-03-30 13:30 | DRG 871 ==
LOC: ED 13:18 → EDHOLD 13:18 → SUATTDRO 23:29 → OBSVTOIN 23:29 → SUATTDRO 03-28 08:06 → EDHOLD 03-28 12:03 → MED 03-28 14:22
PROVIDERS: ADMIT Internal Medicine; ATTEND Internal Medicine